=== PATIENT | male | born 1955 | race Caucasian/White ===

== ENCOUNTER 2018-02-04 13:42 | Emergency (ER) | payer SELFPAY ==
[~2018-02-04] VITALS: Ht 193 cm; Wt 99.4 kg
[~2018-02-04 13:42] MED LIST: CYCL-36 PO; LISI-363 PO; NOVONP2 SQ; PERC10TA27 PO; Z.0.NO CURRENT MEDS; ZOLP10TA3 PO
[2018-02-04 13:44] VITALS: BP 163/90; PULSE 113; RESP 18; TEMP 98.6; O2SAT 99
[2018-02-04] MEDS ORDERED: SODIUM CHLORID 0.9% 500 ML INJ 500 ML IV ONE (14:00)
--- NOTE | 2018-02-04 14:11 | PD ---
HPI Chief Complaint: Complaint Time Seen by Provider: 13:51 Travel History International Travel<30 days: No Contact w/Intl Traveler<30days: No Traveled to known affect area: No History of Present Illness HPI Patient is a 62 year old male who comes in with multiple medical complaints. He says he has pain and swelling to his right foot/ankle for the past week and this is his main concern. 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 He says it has been more painful and swollen. He also says he has numbness of his right lower leg, from the knee down, for the past year, with a nonhealing wound to his left first toe. He says the wound is improving as he has been doing his own wound care. He is also concerned that he may have a UTI. He says his urine has been "cloudy." He says he thinks he had a UTI previously, but treated it himself with over the counter medications and left over antibiotics. He says he had chills yesterday and he had a temperature of 100. He took some Tylenol a few hours ago. Severity is mild to moderate. PFSH Past Medical History Cancer: No Cardiovascular Problems: No Diabetes: Yes Patient Takes Glucophage: No Diminished Hearing: No Endocrine: No Genitourinary: No Hypertension: Yes Musculoskeletal: No Neurologic: Yes Psychiatric: No Respiratory: No Tetanus Vaccination: Unknown Influenza Vaccination: No ?: Not Past Surgical History Other Surgery: Yes Social History Alcohol Use: No Tobacco Use: Yes (1/2 ppd) Substance Use: No Allergies-Medications (Allergen,Severity, Reaction): Coded Allergies: No Known Allergies (Unverified Allergy, Unknown, 02/04/18) Reported Meds & Prescriptions Reported Meds & Active Scripts Active Reported Lisinopril 20 Mg Tab 20 Mg PO DAILY Novolin N (Insulin Human NPH) 100 Units/Ml Inj 10 Units SQ BID Flexeril (Cyclobenzaprine HCl) 10 Mg Tab 10 Mg PO TIDPRN Ambien 10 Mg Tab (Zolpidem Tartrate) 10 Mg Tab 10 Mg PO HS Percocet 10/325 (Oxycodone/Acetaminophen) Tab 1 Tab PO Q4HPRN No Current Meds (Miscellaneous Medication) Misc Review of Systems Except as stated in HPI: all other systems reviewed are Neg General / Constitutional: Positive: Chills HENT: No: Headaches, Lightheadedness Cardiovascular: No: Chest Pain or Discomfort Respiratory: No: Shortness of Breath Gastrointestinal: No: Abdominal Pain Genitourinary: Positive: Dysuria, No: Flank Pain Musculoskeletal: Positive: Edema, Pain Neurologic: No: Weakness, Dizziness, Syncope Physical Exam Narrative GENERAL: Awake and alert, in no acute distress. SKIN: Focused skin assessment warm/dry. Erythema and warmth to the dorsal surface of the right foot, no wound. Wound to left first toe, no signs of infection. HEAD: Atraumatic. Normocephalic. EYES: Pupils equal and round. No scleral icterus. ENT: Mucous membranes pink and moist. NECK: Trachea midline. No JVD. CARDIOVASCULAR: Regular rate and rhythm. No murmur appreciated. RESPIRATORY: No accessory muscle use. Clear to auscultation. Breath sounds equal bilaterally. GASTROINTESTINAL: Abdomen soft, non-tender, nondistended. No CVA tenderness. MUSCULOSKELETAL: No obvious deformities. No clubbing. No cyanosis. No edema. NEUROLOGICAL: Awake and alert. No obvious cranial nerve deficits. Motor grossly within normal limits. Normal speech. PSYCHIATRIC: Appropriate mood and affect; insight and judgment normal. Data Data Last Documented VS Vital Signs Date Time Temp Pulse Resp B/P (MAP) Pulse Ox O2 Delivery O2 Flow Rate FiO2 02/04/18 13:44 98.6 113 18 163/90 (114) 99 Orders Orders Urinalysis - C+S If Indicated (02/04/18 13:47) Complete Blood Count With Diff (02/04/18 13:59) Comprehensive Metabolic Panel (02/04/18 13:59) Iv Access Insert/Monitor (02/04/18 13:59) Sodium Chlorid 0.9% 500 Ml Inj (Ns 500 M (02/04/18 14:00) Foot, Complete ([id number]) (02/04/18 ) Ankle, Complete ([id number]) (02/04/18 ) Clindamycin 600 Mg/Ns Premix (Cleocin 60 (02/04/18 14:30) Labs Laboratory Tests Test 02/04/18 14:24 White Blood Count 13.9 TH/MM3 Red Blood Count 4.55 MIL/MM3 Hemoglobin 13.0 GM/DL Hematocrit 39.1 % Mean Corpuscular Volume 85.9 FL Mean Corpuscular Hemoglobin 28.5 PG Mean Corpuscular Hemoglobin Concent 33.2 % Red Cell Distribution Width 13.3 % Platelet Count 484 TH/MM3 Mean Platelet Volume 8.2 FL Neutrophils (%) (Auto) 74.8 % Lymphocytes (%) (Auto) 17.4 % Monocytes (%) (Auto) 6.1 % Eosinophils (%) (Auto) 0.6 % Basophils (%) (Auto) 1.1 % Neutrophils # (Auto) 10.4 TH/MM3 Lymphocytes # (Auto) 2.4 TH/MM3 Monocytes # (Auto) 0.8 TH/MM3 Eosinophils # (Auto) 0.1 TH/MM3 Basophils # (Auto) 0.2 TH/MM3 CBC Comment DIFF FINAL Differential Comment Blood Urea Nitrogen 7 MG/DL Random Glucose 273 MG/DL Albumin 2.9 GM/DL Calcium Level 9.1 MG/DL Sodium Level 133 MEQ/L Potassium Level 3.7 MEQ/L Chloride Level 96 MEQ/L Carbon Dioxide Level 26.0 MEQ/L Anion Gap 11 MEQ/L [facility] Medical Decision Making Medical Screen Exam Complete: Yes Emergency Medical Condition: Yes Medical Record Reviewed: Yes Differential Diagnosis UTI vs cellulitis vs abscess vs uncontrolled diabetes Narrative Course Patient is a 62 year old male who comes in with multiple complaints. Exam shows swelling and redness to the right foot. IV established, labs sent. Given pain medicine and Clindamycin. XR of the foot and ankle shows degenerative changes, no fracture. Last 24 hours Impressions Foot X-Ray 02/04/18 Signed Impressions: Service Date/Time: Sunday, February 04, 2018 14:02 - CONCLUSION: 1. Right foot soft tissue swelling most severe dorsally. No fracture is identified. 2. There are degenerative changes at multiple joints but most severe at the first and second TMT joints and the first MTP joint. Bolivar Hall MD Ankle X-Ray 02/04/18 Signed Impressions: Service Date/Time: Sunday, February 04, 2018 14:02 - CONCLUSION: Diffuse ankle soft tissue swelling, most prominent laterally. There are degenerative changes present, as above, but no fracture or acute abnormality is seen. Bolivar Hall MD Patient signed out to oncoming provider to follow up testing and disposition the patient. Corinna Patel MD February 04, 2018 14:11
[2018-02-04] MEDS ORDERED: CLINDAMYCIN 600 MG/NS PREMIX 50 ML IV ONE (14:30)
--- NOTE | 2018-02-04 14:37 | RADRPT ---
EXAM DATE/TIME: 02/04/2018 14:02 [facility] COMPARISON: No previous studies available for comparison. INDICATIONS : Right foot pain and redness, no known injury. MEDICAL HISTORY : Diabetes mellitus type II. SURGICAL HISTORY : rt ankle surgery ENCOUNTER: Initial ACUITY: 1 week PAIN SCORE: 3/10 LOCATION: Right foot FINDINGS: 3 views of the right foot demonstrate no fracture or dislocation. The Lisfranc joint appears intact. There is joint space narrowing with osteophytes at the first metatarsophalangeal joint. Hypertrophic osteophytes are present at the first and second tarsometatarsal joints. At the second and third digit distal interphalangeal joints there is joint space narrowing and osteophytes. There is soft tissue s welling diffusely of the foot, most prominent laterally and dorsally. No radiopaque foreign body is s een. CONCLUSION: 1. Right foot soft tissue swelling most severe dorsally. No fracture is identified. 2. There are degenerative changes at multiple joints but most severe at the first and second TMT join ts and the first MTP joint. Bolivar Hall MD on February 04, 2018 at 14:32 Board Certified Radiologist. This report was verified electronically.
--- NOTE | 2018-02-04 14:38 | RADRPT ---
EXAM DATE/TIME: 02/04/2018 14:02 [facility] COMPARISON: FOOT RIGHT COMPLETE ([id number]), February 04, 2018, 14:02. INDICATIONS : Right lateral ankle pain, swelling and redness, no known injury. MEDICAL HISTORY : Diabetes mellitus type II. SURGICAL HISTORY : rt ankle surgery ENCOUNTER: Initial ACUITY: 1 week PAIN SCORE: 3/10 LOCATION: Right lateral ankle FINDINGS: 3 views of the right ankle demonstrate no fracture or dislocation. Ankle mortise appears intact. Ther e is ankle soft tissue swelling, most severe laterally. There are degenerative changes in the mid valeri t and at the tibiotalar joint. No radiopaque foreign body is identified. CONCLUSION: Diffuse ankle soft tissue swelling, most prominent laterally. There are degenerative changes present, as above, but no fracture or acute abnormality is seen. Bolivar Hall MD on February 04, 2018 at 14:35 Board Certified Radiologist. This report was verified electronically.
[2018-02-04 14:39] LABS: AUTOMATED NEUTROPHIL # 10.4 TH/MM3 (1.8-7.7); BASOPHIL # 0.2 TH/MM3 (0-0.2); BASOPHIL % 1.1 % (0.0-2.0); EOSINOPHIL # 0.1 TH/MM3 (0-0.4); EOSINOPHIL % 0.6 % (0.0-4.0); HEMATOCRIT 39.1 % (39.0-51.0); LYMPH % 17.4 % (9.0-44.0); LYMPHOCYTE # 2.4 TH/MM3 (1.0-4.8); MEAN CELL VOLUME 85.9 FL (80.0-100.0); MEAN CORPUSCULAR HEMOGLOBIN 28.5 PG (27.0-34.0); MEAN CORPUSCULAR HGB CONC 33.2 % (32.0-36.0); MEAN PLATELET VOLUME 8.2 FL (7.0-11.0); MONO % 6.1 % (0.0-8.0); MONOCYTE # 0.8 TH/MM3 (0-0.9); NEUT % 74.8 % (16.0-70.0); PLATELET COUNT 484 TH/MM3 (150-450); RED BLOOD COUNT 4.55 MIL/MM3 (4.50-5.90); RED CELL DISTRIBUTION WIDTH 13.3 % (11.6-17.2); WHITE BLOOD COUNT 13.9 TH/MM3 (4.0-11.0)
[2018-02-04 14:47] LABS: CHLORIDE 96 MEQ/L (98-107); SODIUM (NA) 133 MEQ/L (136-145)
[2018-02-04 14:50] LABS: CALCIUM 9.1 MG/DL (8.5-10.1)
[2018-02-04 14:51] LABS: ALBUMIN 2.9 GM/DL (3.4-5.0); BLOOD UREA NITROGEN 7 MG/DL (7-18); GLUCOSE,RANDOM 273 MG/DL (74-106)
[2018-02-04 14:54] LABS: ALT (GPT) 14 U/L (12-78); AST (GOT) 12 U/L (15-37); CREATININE 0.59 MG/DL (0.60-1.30); GLOMERULAR FILTRATION RATE 139 ML/MIN (>89)
[2018-02-04 14:56] LABS: TOTAL BILIRUBIN ADULT 0.6 MG/DL (0.2-1.0); TOTAL PROTEIN 7.2 GM/DL (6.4-8.2)
[2018-02-04 14:57] LABS: ALKALINE PHOSPHATASE 86 U/L (45-117)
[2018-02-04] MEDS ORDERED: KETOROLAC TROMETHAMINE 30 MG/ML (IVP) VIAL IV PUSH ONE (15:00)
[2018-02-04 15:30] LABS: BILIRUBIN, URINE NEG (NEG); BLOOD, URINE SMALL (NEG); GLUCOSE,URINE 500 mg/dL (NEG); KETONE, URINE 80 OR GREATER mg/dL (NEG); NITRITE,URINE NEG (NEG); URINE COLOR YELLOW (YELLW/STRAW); URINE LEUKOCYTE ESTERASE MOD (NEG)
[2018-02-04 15:42] LABS: BACTERIA, URINE OCC /hpf; RBC, URINE 0-3 /hpf (0-3); SQUAMOUS EPITHELIAL CELL URINE 0-5 /hpf (0-5); WBC, URINE 100-200 /hpf (0-5); WHITE BLOOD CELL CLUMPS FEW
[2018-02-04 15:56] VITALS: BP 183/99; PULSE 91; RESP 16; O2SAT 98
--- NOTE | 2018-02-04 15:56 | PD ---
Physical Exam Date Seen by Provider: February 04, 2018 Time Seen by Provider: 15:50 Narrative 62-year-old male came to the emergency room with history of right foot swelling , redness and pain. Patient is a diabetic on medications and controlling on his own with diet. Patient was seen by the previous ER physician. Please refer to her history and physical for further details. Case was signed out to me to follow-up on the UA. When patient came in he was tachycardic in triage but afebrile. Blood test results are suggestive of leukocytosis without leftward shift. Electrolytes were suggestive of hyperglycemia without increased anion gap. There was an x-ray of the right foot and ankle done which the patient was complaining of pain and swelling. The x-ray suggestive of significant DJD but no acute fracture. I went and saw the patient and explained to him about the test results. I was in the room talking to the patient for 15 minutes explained to him about the fact that his sugar is not well controlled at this point. He should have a primary care physician who can control with medication and keep an eye on the blood sugar and hemoglobin A1c etc. Also the patient needs a marine erector to follow-up on both feet since the left foot which he is not really complaining about has a large ulcer on the plantar aspect of the greater toe which as per the patient is actually getting better with his own care. Patient was more concerned about his right foot and the pain and swelling and was sure he had a fracture given the amount of pain he was in especially when he is walking. He said that he does not need crutches and has been nursing it well. I found the patient to be wanting to be in control of his own health. He says he has been doing a lot of research on his foot disease. Which sounds good however the fact is that his care is not adequate to keep his feet healthy. I noticed that his left middle toe plantar aspect had started to turn ecchymotic with a possibility of the beginning of a diabetic ulcer. His right foot also in general did not appear to be extremely healthy either. He had poor toenail care with lot of ingrown toenails. He does require medications, primary care doctor and a marine erector and I tried to emphasize this on the patient. However due to the lack of insight I am not sure how much of the recommendation the patient is going to follow. I will send him home on antibiotic for his foot which should cover for cellulitis as well as UTI. His tenderness on the foot is mostly on the lateral aspect of the foot and there is a point tenderness. Given the redness and the tenderness there and I would like to go ahead and get a CAT scan of the foot to rule out any subtle fracture. I have ordered Bactrim in addition to the IV clindamycin that he had received from the previous physician. If the CT is fine patient will be discharged home. Data Data Last Documented VS Vital Signs Date Time Temp Pulse Resp B/P (MAP) Pulse Ox O2 Delivery O2 Flow Rate FiO2 02/04/18 17:28 02/04/18 15:56 91 16 98 Room Air 02/04/18 13:44 98.6 Orders Orders Urinalysis - C+S If Indicated (02/04/18 13:47) Complete Blood Count With Diff (02/04/18 13:59) Comprehensive Metabolic Panel (02/04/18 13:59) Iv Access Insert/Monitor (02/04/18 13:59) Sodium Chlorid 0.9% 500 Ml Inj (Ns 500 M (02/04/18 14:00) Foot, Complete ([id number]) (02/04/18 ) Ankle, Complete ([id number]) (02/04/18 ) Clindamycin 600 Mg/Ns Premix (Cleocin 60 (02/04/18 14:30) Ketorolac Inj (Toradol Inj) (02/04/18 15:00) Urine Culture (02/04/18 15:15) Sulfamet-Trimeth Ds 800-160 Mg (Bactrim (02/04/18 16:00) Ct Foot W/O Contrast (02/04/18 ) Ed Discharge Order (02/04/18 17:10) Labs Laboratory Tests Test 02/04/18 14:24 02/04/18 15:15 White Blood Count 13.9 TH/MM3 Red Blood Count 4.55 MIL/MM3 Hemoglobin 13.0 GM/DL Hematocrit 39.1 % Mean Corpuscular Volume 85.9 FL Mean Corpuscular Hemoglobin 28.5 PG Mean Corpuscular Hemoglobin Concent 33.2 % Red Cell Distribution Width 13.3 % Platelet Count 484 TH/MM3 Mean Platelet Volume 8.2 FL Neutrophils (%) (Auto) 74.8 % Lymphocytes (%) (Auto) 17.4 % Monocytes (%) (Auto) 6.1 % Eosinophils (%) (Auto) 0.6 % Basophils (%) (Auto) 1.1 % Neutrophils # (Auto) 10.4 TH/MM3 Lymphocytes # (Auto) 2.4 TH/MM3 Monocytes # (Auto) 0.8 TH/MM3 Eosinophils # (Auto) 0.1 TH/MM3 Basophils # (Auto) 0.2 TH/MM3 CBC Comment DIFF FINAL Differential Comment Blood Urea Nitrogen 7 MG/DL Creatinine 0.59 MG/DL Random Glucose 273 MG/DL Total Protein 7.2 GM/DL Albumin 2.9 GM/DL Calcium Level 9.1 MG/DL Alkaline Phosphatase 86 U/L Aspartate Amino Transf (AST/SGOT) 12 U/L Alanine Aminotransferase (ALT/SGPT) 14 U/L Total Bilirubin 0.6 MG/DL Sodium Level 133 MEQ/L Potassium Level 3.7 MEQ/L Chloride Level 96 MEQ/L Carbon Dioxide Level 26.0 MEQ/L Anion Gap 11 MEQ/L Estimat Glomerular Filtration Rate 139 ML/MIN Urine Color YELLOW Urine Turbidity CLEAR Urine pH 6.0 Urine Specific [place] 1.010 Urine Protein 100 mg/dL Urine Glucose (UA) 500 mg/dL Urine Ketones 80 OR GREATER mg/dL Urine Occult Blood SMALL Urine Nitrite NEG Urine Bilirubin NEG Urine Urobilinogen 0.2 MG/DL Urine Leukocyte Esterase MOD Urine RBC 0-3 /hpf Urine WBC 100-200 /hpf Urine WBC Clumps FEW Urine Squamous Epithelial Cells 0-5 /hpf Urine Bacteria OCC /hpf Microscopic Urinalysis Comment CULTURE INDICATED MDM Supervised Visit with JARRED: No Diagnosis Primary Impression: Diabetic foot ulcer Qualified Codes: E11.621 - Type 2 diabetes mellitus with foot ulcer; L97.522 - Non-pressure chronic ulcer of other part of left foot with fat layer exposed Additional Impressions: Charcot's joint of right foot UTI (urinary tract infection) Qualified Codes: N39.0 - Urinary tract infection, site not specified Hyperglycemia Referrals: Corinna Blake DPJasen 3 days Additional Instruction: Please follow-up with the marine erector was name and number been given to you. Call the office tomorrow to make an appointment. Take the medication as per the prescription direction. Return to the ER if condition worsens or any other new concerns. Med/Other Pt SpecificInfo: Prescription(s) given Scripts Sulfamethoxazole-Trimethoprim (Bactrim DS) 800-160 Mg Tab 1 TAB PO BID for Infection, #20 TAB 0 Refills Prov: Cindi Mccoy MD 02/04/18 Metformin (Glucophage) 500 Mg Tab 500 MG PO BIDPC for Blood Sugar Management, #60 TAB 0 Refills Prov: Cindi Mccoy MD 02/04/18 Disposition: 01 DISCHARGE HOME Condition: Stable Cindi Mccoy MD February 04, 2018 15:56
[2018-02-04] MEDS ORDERED: SULFAMETHOXAZOLE-TRIMETHOPRIM DS 800-160 MG TAB PO ONE (16:00)
--- NOTE | 2018-02-04 17:00 | RADRPT ---
EXAM DATE/TIME: 02/04/2018 16:20 [facility] COMPARISON: FOOT RIGHT COMPLETE ([id number]), February 04, 2018, 14:02. INDICATIONS : Right foot pain. No injury. RADIATION DOSE: 6.26 CTDIvol (mGy) MEDICAL HISTORY : Hypertension. Diabetes. SURGICAL HISTORY : Bilateral ankle surgery. ENCOUNTER: Initial ACUITY: 1 week PAIN SCALE: 7/10 LOCATION: Right foot TECHNIQUE: Volumetric scanning of the foot was performed. Using automated exposure control and adjustment of th e mA and/or kV according to patient size, radiation dose was kept as low as reasonably achievable to obtain optimal diagnostic quality images. DICOM format image data is available electronically for re view and comparison. FINDINGS: There is evidence of mild to moderate Charcot arthropathy in the tarsal/metatarsal row and 1st throug h 5th digits. There is mild arthropathy involving the intertarsal row. No significant dislocation o r malalignment. In the soft tissues near the plantar aspect of the distal 2nd metatarsus, there is a 2 mm rounded metallic density possibly representing foreign body. There is soft tissue swelling abo ut this opacity. There is mild dorsal soft tissue swelling about the midfoot most the interphalangea l joints are grossly intact in the metatarsal pharyngeal joints are intact. Mild degenerative change s in 1st MTP joint. CONCLUSION: Moderate severity Charcot arthropathy in the tarsal/metatarsal row. Possible punctate metallic forei gn body in the soft tissues of the plantar 2nd metatarsal region. Woo Hylton MD on February 04, 2018 at 16:49 Board Certified Radiologist. This report was verified electronically.
[2018-02-04] MEDS ORDERED: BACT800T5 PO ×2 (17:13→17:17)
[2018-02-04] MEDS ORDERED: METF500 PO ×2 (17:13→17:17)
== END 2018-02-04 17:38 | disposition home or self-care (01) ==
LOC: PHED 13:42
DX: E11.621 Type 2 diabetes mellitus with foot ulcer (principal); L97.522 Non-pressure chronic ulcer of other part of left foot with fat layer exposed; E11.610 Type 2 diabetes mellitus with diabetic neuropathic arthropathy; E11.65 Type 2 diabetes mellitus with hyperglycemia; N39.0 Urinary tract infection, site not specified; A49.01 Methicillin susceptible Staphylococcus aureus infection, unspecified site; I10 Essential (primary) hypertension; F17.200 Nicotine dependence, unspecified, uncomplicated; Z79.4 Long term (current) use of insulin
CPT/HCPCS: 73610; 73630; 73700; 80053; 81001; 85025; 86403; 87086; 87186; 96365; 96375; 99284; J1885; J7040

== ENCOUNTER 2018-02-26 14:34 | Inpatient (IN) | payer SELFPAY ==
[~2018-02-26] VITALS: Ht 193 cm; Wt 97.4 kg
[2018-02-26] VITALS (8 sets, daily range): BP systolic 128–214; BP diastolic 72–111; PULSE 85–95; RESP 16; TEMP 98.4–98.8; O2SAT 99–100
[~2018-02-26 14:34] MED LIST changes: +BACT800T5 PO; +METF500 PO; +cloNIDine HCL 0.1 MG TAB PO PRN
--- NOTE | 2018-02-26 15:36 | PD ---
HPI Chief Complaint: Skin Problem Time Seen by Provider: 15:16 Travel History International Travel<30 days: No Contact w/Intl Traveler<30days: No Traveled to known affect area: No History of Present Illness HPI 62-year-old male with history of diabetes here for evaluation of persistent redness, pain, slight swelling to the right foot as well as cloudy urine and dysuria. Patient was seen in the emergency department on 02/04/18 and was prescribed Bactrim for his right foot cellulitis. He was also started on metformin at that time, however he states that he has not taken this medication for the last week. He states that initially the redness seemed to have improved , however it is no longer getting better. Pain is moderate, constant, worse with palpation. Patient also reports that for the last 4 days he has noted dysuria and occasionally has gross hematuria. No abdominal pain. No vomiting or diarrhea. No fevers or chills. PFSH Past Medical History Cancer: No Cardiovascular Problems: No Diabetes: Yes Diminished Hearing: No Endocrine: No Genitourinary: No Hypertension: Yes Musculoskeletal: No Neurologic: Yes Psychiatric: No Respiratory: No Past Surgical History Other Surgery: Yes Social History Alcohol Use: No Tobacco Use: Yes (/2 ppd) Substance Use: No Allergies-Medications (Allergen,Severity, Reaction): Coded Allergies: No Known Allergies (Unverified Allergy, Unknown, 02/26/18) Reported Meds & Prescriptions Reported Meds & Active Scripts Active Review of Systems Except as stated in HPI: all other systems reviewed are Neg Physical Exam Narrative GENERAL: Well-developed, well-nourished, awake and alert, no apparent distress. SKIN: Dorsum of right foot with diffuse erythema and mild edema with mild tenderness, no crepitus, no fluctuance or induration. There is a small superficial ulceration at the base of the right great toe on the plantar aspect of the foot without surrounding warmth erythema, no purulent drainage. Plantar aspect of left great toe there is an ulceration that the patient states has been there for quite some time, no drainage, no surrounding warmth erythema. HEAD: Atraumatic. Normocephalic. EYES: Pupils equal and round. No scleral icterus. No injection or drainage. ENT: Mucous membranes pink and moist. NECK: Trachea midline. No JVD. CARDIOVASCULAR: Regular rate and rhythm. Bilateral dorsalis pedis pulses are brisk and equal. RESPIRATORY: No accessory muscle use. Clear to auscultation. Breath sounds equal bilaterally. GASTROINTESTINAL: Abdomen soft, non-tender, nondistended. MUSCULOSKELETAL: Skin exam as above. NEUROLOGICAL: Awake and alert. No obvious cranial nerve deficits. Motor grossly within normal limits. Normal speech. PSYCHIATRIC: Appropriate mood and affect; insight and judgment normal. Data Data Last Documented VS Vital Signs Date Time Temp Pulse Resp B/P (MAP) Pulse Ox O2 Delivery O2 Flow Rate FiO2 02/26/18 14:46 98.8 95 16 170/94 (119) 99 Orders Orders Complete Blood Count With Diff (02/26/18 15:31) Comprehensive Metabolic Panel (02/26/18 15:31) Urinalysis - C+S If Indicated (02/26/18 15:31) Iv Access Insert/Monitor (02/26/18 15:31) Ecg Monitoring (02/26/18 15:31) Oximetry (02/26/18 15:31) Sodium Chloride 0.9% Flush (Ns Flush) (02/26/18 15:45) Foot, Complete ([id number]) (02/26/18 ) Westergren Sedimentation Rate (02/26/18 15:31) C-Reactive Protein (Crp) (02/26/18 15:31) Urine Culture (02/26/18 15:42) Blood Culture (02/26/18 16:46) Vancomycin Inj (Vancomycin Inj) (02/26/18 17:00) Piperacil-Tazo 4.5 Gm Premix (Zosyn 4.5 (02/26/18 17:00) Sodium Chlor 0.9% 1000 Ml Inj (Ns 1000 M (02/26/18 17:00) Insulin Human Regular Inj (Novolin R Inj (02/26/18 17:00) Labs Laboratory Tests Test 02/26/18 15:42 02/26/18 16:03 Urine Collection Type CLEAN CATCH Urine Color YELLOW Urine Turbidity CLOUDY Urine pH 6.0 Urine Specific [place] 1.020 Urine Protein 100 mg/dL Urine Glucose (UA) 500 mg/dL Urine Ketones NEG mg/dL Urine Occult Blood TRACE Urine Nitrite NEG Urine Bilirubin NEG Urine Urobilinogen 0.2 MG/DL Urine Leukocyte Esterase LARGE Urine RBC 20-24 /hpf Urine WBC 100-200 /hpf Urine WBC Clumps MANY Urine Squamous Epithelial Cells 0-5 /hpf Urine Bacteria FEW /hpf Microscopic Urinalysis Comment CULTURE INDICATED Urine Collection Time 15:42 White Blood Count 12.7 TH/MM3 Red Blood Count 4.52 MIL/MM3 Hemoglobin 12.6 GM/DL Hematocrit 37.3 % Mean Corpuscular Volume 82.6 FL Mean Corpuscular Hemoglobin 27.8 PG Mean Corpuscular Hemoglobin Concent 33.7 % Red Cell Distribution Width 13.6 % Platelet Count 597 TH/MM3 Mean Platelet Volume 8.4 FL Neutrophils (%) (Auto) 66.1 % Lymphocytes (%) (Auto) 26.9 % Monocytes (%) (Auto) 5.0 % Eosinophils (%) (Auto) 1.2 % Basophils (%) (Auto) 0.8 % Neutrophils # (Auto) 8.4 TH/MM3 Lymphocytes # (Auto) 3.4 TH/MM3 Monocytes # (Auto) 0.6 TH/MM3 Eosinophils # (Auto) 0.2 TH/MM3 Basophils # (Auto) 0.1 TH/MM3 CBC Comment DIFF FINAL Differential Comment Erythrocyte Sedimentation Rate 63 mm/hr Blood Urea Nitrogen 9 MG/DL Creatinine 0.72 MG/DL Random Glucose 283 MG/DL Total Protein 7.8 GM/DL Albumin 3.4 GM/DL Calcium Level 9.4 MG/DL Alkaline Phosphatase 92 U/L Aspartate Amino Transf (AST/SGOT) 13 U/L Alanine Aminotransferase (ALT/SGPT) 19 U/L Total Bilirubin 0.4 MG/DL Sodium Level 131 MEQ/L Potassium Level 4.0 MEQ/L Chloride Level 95 MEQ/L Carbon Dioxide Level 28.7 MEQ/L Anion Gap 7 MEQ/L Estimat Glomerular Filtration Rate 111 ML/MIN C-Reactive Protein 2.55 MG/DL [facility] Medical Decision Making Medical Screen Exam Complete: Yes Emergency Medical Condition: Yes Medical Record Reviewed: Yes Differential Diagnosis Cellulitis, osteomyelitis, diabetic foot infection, UTI, cystitis Narrative Course Initial vital signs show heart rate 95, blood pressure 170/94, pulse ox 99% on room air, oral temperature 98.8F. CBC: WBC 12.7, hemoglobin 12.6, hematocrit 37.3, platelets 597. CMP is remarkable for sodium 131, chloride 95, random glucose 283. CRP is 2.55. ESR 63. UA is suggestive of UTI. Right foot x-ray: CONCLUSION: 1. Findings concerning for osteomyelitis involving the base of the fourth and fifth metatarsals as well as the cuboid, in the appropriate clinical setting. Differential considerations include neuropathic osteoarthropathy. 4:50 PM: Patient was made aware of all findings. I strongly advised that he be admitted for IV antibiotics. The patient tells me that he cannot be admitted. I had a long discussion with him telling him that if he does not receive the appropriate IV antibiotics, that his osteomyelitis will worsen and he went up with an amputation of the right foot/leg. He tells me that he would like time to think about being admitted, stating that he prefers to be discharged home with oral antibiotics. 5:34 PM: When talking with the patient and he has decided that he will stay in the hospital for IV antibiotic therapy for right foot osteomyelitis. He was written for a dose of 1g IV Vancomycin and 4.5g IV Zosyn. Case discussed with hospitalist Dr. Miranda who will admit the patient to her service. Diagnosis Primary Impression: Foot osteomyelitis, right Qualified Codes: M86.9 - Osteomyelitis, unspecified Additional Impressions: Cellulitis of right foot Hyperglycemia Diabetic ulcer of left great toe UTI (urinary tract infection) Qualified Codes: N39.0 - Urinary tract infection, site not specified; R31.9 - Hematuria, unspecified Admitting Information Admitting Physician Requests: Admit Benjamin Burdick MD February 26, 2018 15:36
[2018-02-26] MEDS ORDERED: SODIUM CHLORIDE 0.9% FLUSH 10 ML FLUSH IV FLUSH PRN ×2 (15:45→18:30)
[2018-02-26 15:51] LABS: BILIRUBIN, URINE NEG (NEG); BLOOD, URINE TRACE (NEG); GLUCOSE,URINE 500 mg/dL (NEG); KETONE, URINE NEG (NEG); NITRITE,URINE NEG (NEG); URINE COLOR YELLOW (YELLW/STRAW); URINE LEUKOCYTE ESTERASE LARGE (NEG)
[2018-02-26 15:59] LABS: WBC, URINE 100-200 /hpf (0-5); WHITE BLOOD CELL CLUMPS MANY
[2018-02-26 16:00] LABS: BACTERIA, URINE FEW /hpf; SQUAMOUS EPITHELIAL CELL URINE 0-5 /hpf (0-5)
[2018-02-26 16:10] LABS: AUTOMATED NEUTROPHIL # 8.4 TH/MM3 (1.8-7.7); BASOPHIL # 0.1 TH/MM3 (0-0.2); BASOPHIL % 0.8 % (0.0-2.0); EOSINOPHIL # 0.2 TH/MM3 (0-0.4); EOSINOPHIL % 1.2 % (0.0-4.0); HEMATOCRIT 37.3 % (39.0-51.0); HEMOGLOBIN 12.6 GM/DL (13.0-17.0); LYMPH % 26.9 % (9.0-44.0); LYMPHOCYTE # 3.4 TH/MM3 (1.0-4.8); MEAN CELL VOLUME 82.6 FL (80.0-100.0); MEAN CORPUSCULAR HEMOGLOBIN 27.8 PG (27.0-34.0); MEAN CORPUSCULAR HGB CONC 33.7 % (32.0-36.0); MEAN PLATELET VOLUME 8.4 FL (7.0-11.0); MONOCYTE # 0.6 TH/MM3 (0-0.9); NEUT % 66.1 % (16.0-70.0); PLATELET COUNT 597 TH/MM3 (150-450); RED BLOOD COUNT 4.52 MIL/MM3 (4.50-5.90); RED CELL DISTRIBUTION WIDTH 13.6 % (11.6-17.2); WHITE BLOOD COUNT 12.7 TH/MM3 (4.0-11.0)
[2018-02-26 16:16] LABS: CHLORIDE 95 MEQ/L (98-107); SODIUM (NA) 131 MEQ/L (136-145)
[2018-02-26 16:20] LABS: ALBUMIN 3.4 GM/DL (3.4-5.0); BICARBONATE 28.7 MEQ/L (21.0-32.0); BLOOD UREA NITROGEN 9 MG/DL (7-18); CALCIUM 9.4 MG/DL (8.5-10.1); GLUCOSE,RANDOM 283 MG/DL (74-106)
--- NOTE | 2018-02-26 16:20 | RADRPT ---
EXAM DATE: 02/26/2018 4:06 PM EDT AGE/SEX: 62 years / Male INDICATIONS: Right foot pain, redness with no known injury CLINICAL DATA: This is the patient's initial encounter. Patient reports that signs and symptoms have been present for 1 month and indicates a pain score of 7/10. MEDICAL/SURGICAL HISTORY: Diabetes mellitus type II. . Right ankle surgery COMPARISON: [facility], FOOT RIGHT COMPLETE ([id number]), 02/04/2018. . FINDINGS: Prominent bony destruction and fragmentation involving the medial base of the fifth metatarsal as wel l as the cuboid and lateral base of the fourth metatarsal. Redemonstration of degenerative changes mo st prominently involving the first and second metatarsal cuneiform as well as the first metatarsophal angeal joints. Mild diffuse soft tissue prominence overlying the midfoot region. No radiopaque foreig n bodies. CONCLUSION: 1. Findings concerning for osteomyelitis involving the base of the fourth and fifth metatarsals as w ell as the cuboid, in the appropriate clinical setting. Differential considerations include neuropath ic osteoarthropathy. Electronically signed by: Torres Aleman MD 02/26/2018 4:19 PM EDT
[2018-02-26 16:23] LABS: ALT (GPT) 19 U/L (12-78); AST (GOT) 13 U/L (15-37); CREATININE 0.72 MG/DL (0.60-1.30); GLOMERULAR FILTRATION RATE 111 ML/MIN (>89)
[2018-02-26 16:25] LABS: TOTAL BILIRUBIN ADULT 0.4 MG/DL (0.2-1.0); TOTAL PROTEIN 7.8 GM/DL (6.4-8.2)
[2018-02-26 16:26] LABS: ALKALINE PHOSPHATASE 92 U/L (45-117)
[2018-02-26 16:31] LABS: C-REACTIVE PROTEIN 2.55 MG/DL (0.00-0.30)
[2018-02-26] MEDS ORDERED: INSULIN HUMAN REGULAR 1,000 UNITS/10 ML VIAL IV PUSH ONE (17:00)
[2018-02-26] MEDS ORDERED: VANCOMYCIN INJ 1,000 MG in SODIUM CHLOR 0.9% 250 ML INJ 250 ML IV ONE (17:00)
[2018-02-26] MEDS ORDERED: SODIUM CHLOR 0.9% 1000 ML INJ 1,000 ML IV ONE (17:00)
[2018-02-26] MEDS ORDERED: PIPERACIL-TAZO 4.5 GM PREMIX 100 ML IV ONE (17:00)
[2018-02-26] MEDS ORDERED: Vancomycin Consult Pharmacy 1 EA OTHER SCH (18:30)
[2018-02-26] MEDS ORDERED: NALOXONE HCL 0.4 MG/ML AMP IV PUSH PRN (18:30)
[2018-02-26] MEDS ORDERED: GLUCAGON 1 MG/ML VIAL OTHER PRN (18:30)
[2018-02-26] MEDS ORDERED: DEXTROSE 50% IN WATER 50 ML VIAL(D50) IV PUSH PRN (18:30)
[2018-02-26] MEDS ORDERED: VANCOMYCIN INJ 1,000 MG in SODIUM CHLOR 0.9% 250 ML INJ 250 ML IV SCH (18:30)
[2018-02-26] MEDS ORDERED: ACETAMINOPHEN 325 MG TAB PO PRN (20:00)
[2018-02-26] MEDS: SODIUM CHLOR 0.9% 1000 ML INJ 1,000 ML IV SCH (20:12)
[2018-02-26] MEDS ORDERED: NIFEdipine 30 MG SUSTAINED RELEASE TAB PO ONE (20:15)
[2018-02-26] MEDS ORDERED: cloNIDine HCL 0.2 MG TAB PO ONE (20:15)
[2018-02-26] MEDS ORDERED: LISINOPRIL 5 MG TAB PO ONE (20:15)
[2018-02-26] MEDS ORDERED: PROCHLORPERAZINE 25 MG SUPP RECTAL PRN (21:00)
[2018-02-26] MEDS ORDERED: SENNOSIDES 8.6 MG TAB PO PRN (21:00)
[2018-02-26] MEDS ORDERED: MAGNESIUM HYDROXIDE SUSP 30 ML CUP PO PRN (21:00)
[2018-02-26] MEDS ORDERED: VANCOMYCIN 1,000 MG/NS 250 ML IV ONE ×2 (21:00)
[2018-02-26] MEDS: traMADol HCL 50 MG TAB PO PRN (21:09)
[2018-02-26] MEDS: SODIUM CHLORIDE 0.9% FLUSH 10 ML FLUSH IV FLUSH SCH (21:10)
[2018-02-26] MEDS: INSULIN ASPART SUPPLEMENTAL SCALE SQ SCH (21:14)
[2018-02-26] MEDS: DOCUSATE SODIUM 50 MG/SENNA 8.6 MG TAB PO SCH (22:00)
[2018-02-26] MEDS: TEMAZEPAM 15 MG CAP PO PRN (23:24)
[2018-02-27 00:07] VITALS: BP 138/91; PULSE 84; RESP 20; TEMP 95.7; O2SAT 99
[2018-02-27] MEDS: SODIUM CHLOR 0.9% 1000 ML INJ 1,000 ML IV SCH (04:20)
[2018-02-27] MEDS: PIPERACIL-TAZO 4.5 GM PREMIX 100 ML IV SCH ×3 (05:00→21:50)
[2018-02-27] MEDS: VANCOMYCIN INJ 2,000 MG in SODIUM CHLORID 0.9% 500 ML INJ 500 ML IV SCH ×2 (06:03→18:02)
[2018-02-27 06:46] LABS: AUTOMATED NEUTROPHIL # 6.4 TH/MM3 (1.8-7.7); BASOPHIL # 0.1 TH/MM3 (0-0.2); BASOPHIL % 0.9 % (0.0-2.0); EOSINOPHIL # 0.2 TH/MM3 (0-0.4); HEMATOCRIT 32.5 % (39.0-51.0); HEMOGLOBIN 10.5 GM/DL (13.0-17.0); LYMPH % 27.5 % (9.0-44.0); LYMPHOCYTE # 2.8 TH/MM3 (1.0-4.8); MEAN CELL VOLUME 83.2 FL (80.0-100.0); MEAN CORPUSCULAR HEMOGLOBIN 26.9 PG (27.0-34.0); MEAN CORPUSCULAR HGB CONC 32.3 % (32.0-36.0); MEAN PLATELET VOLUME 8.6 FL (7.0-11.0); MONO % 7.2 % (0.0-8.0); MONOCYTE # 0.7 TH/MM3 (0-0.9); NEUT % 62.4 % (16.0-70.0); PLATELET COUNT 445 TH/MM3 (150-450); RED BLOOD COUNT 3.91 MIL/MM3 (4.50-5.90); RED CELL DISTRIBUTION WIDTH 13.2 % (11.6-17.2); WHITE BLOOD COUNT 10.2 TH/MM3 (4.0-11.0)
[2018-02-27 07:07] LABS: BICARBONATE 31.1 MEQ/L (21.0-32.0); CALCIUM 8.6 MG/DL (8.5-10.1); CREATININE 0.49 MG/DL (0.60-1.30)
[2018-02-27 08:29] VITALS: BP 146/80; PULSE 82; RESP 16; TEMP 96.6; O2SAT 93
[2018-02-27] MEDS: SODIUM CHLORIDE 0.9% FLUSH 10 ML FLUSH IV FLUSH SCH ×2 (09:00→19:57)
--- NOTE | 2018-02-27 09:37 | HHI.HP ---
[facility] Service [facility] Primary Care Physician No Primary Care Physician Admission Diagnosis Right foot osteomyelitis/cellulitis, UTI, hyperglycemia Diagnoses: (1) Osteomyelitis of toe of left foot (2) Diabetic ulcer of left great toe (3) Cellulitis of right foot (4) Foot osteomyelitis, right (5) Diabetes mellitus (6) UTI (urinary tract infection) Chief Complaint: Right foot pain, dysuria Travel History International Travel<30 Days: No Contact w/Intl Traveler <30 Da: No Traveled to Known Affected Are: No History of Present Illness 62-year-old man with history of diabetes type 2 and noncompliant with medical care presented to the ED for evaluation of right foot pain times several months duration, as well as redness and swelling right foot. Patient also states reports symptoms of dysuria however denies any pelvic pressure. Patient states he has not seek any medical intervention secondary to the fact that he has been taking care of his mom until passing. He has not seen any PCP. However patient was recently seen in the ED on February 04, 2018 and prescribed Bactrim for right foot cellulitis. He also endorses left great toe ulcer which he has been taken care of by himself. Denies any febrile episode Review of Systems Except as stated in HPI: all other systems reviewed are Neg Past Family Social History Past Medical History Diabetes: Yes Hypertension: Yes Past Surgical History Other Surgery: Yes Reported Medications Not currently on any medication Allergies: Coded Allergies: No Known Allergies (Unverified Allergy, Unknown, 02/26/18) Family History Dementia Social History Alcohol Use: No Tobacco Use: Yes (1/2 ppd) Substance Use: No Physical Exam Vital Signs Vital Signs Date Time Temp Pulse Resp B/P (MAP) Pulse Ox O2 Delivery O2 Flow Rate FiO2 02/27/18 08:29 96.6 82 16 146/80 (102) 93 02/27/18 00:07 95.7 84 20 138/91 (107) 99 02/26/18 22:40 80 128/75 (92) 02/26/18 21:55 92 142/72 (95) 99 Room Air 02/26/18 21:40 140/84 (102) 02/26/18 21:23 183/93 (123) 02/26/18 21:07 168/96 (120) 02/26/18 20:50 85 198/101 (133) 99 Room Air 02/26/18 19:50 98.4 87 16 192/111 (138) 100 Room Air 214/111 (145) 198/101 (133) 02/26/18 14:46 98.8 95 16 170/94 (119) 99 Physical Exam GENERAL: This is a well-nourished, well-developed patient, in no apparent distress. SKIN: No rashes, ecchymoses or lesions. Cool and dry. Erythema and redness dorsal aspect right foot. Left great toe ulcer HEAD: Atraumatic. Normocephalic. No temporal or scalp tenderness. EYES: Pupils equal round and reactive. Extraocular motions intact. No scleral icterus. No injection or drainage. ENT: Nose without bleeding, purulent drainage or septal hematoma. Throat without erythema, tonsillar hypertrophy or exudate. Uvula midline. Airway patent. NECK: Trachea midline. No JVD or lymphadenopathy. Supple, nontender, no meningeal signs. CARDIOVASCULAR: Regular rate and rhythm without murmurs, gallops, or rubs. RESPIRATORY: Clear to auscultation. Breath sounds equal bilaterally. No wheezes , rales, or rhonchi. GASTROINTESTINAL: Abdomen soft, non-tender, nondistended. No hepato-splenomegaly , or palpable masses. No guarding. MUSCULOSKELETAL: Extremities without clubbing, cyanosis, or edema. No joint tenderness, effusion, or edema noted. No calf tenderness. Negative Homans sign bilaterally. NEUROLOGICAL: Awake and alert. Cranial nerves II through XII intact. Motor and sensory grossly within normal limits. Five out of 5 muscle strength in all muscle groups. Normal speech. Laboratory Laboratory Tests Test 02/26/18 15:42 02/26/18 16:03 02/27/18 05:00 Urine Collection Type CLEAN CATCH Urine Color YELLOW Urine Turbidity CLOUDY Urine pH 6.0 Urine Specific [place] 1.020 Urine Protein 100 Urine Glucose (UA) 500 Urine Ketones NEG Urine Occult Blood TRACE Urine Nitrite NEG Urine Bilirubin NEG Urine Urobilinogen 0.2 Urine Leukocyte Esterase LARGE Urine RBC 20-24 Urine WBC 100-200 Urine WBC Clumps MANY Urine Squamous Epithelial Cells 0-5 Urine Bacteria FEW Microscopic Urinalysis Comment CULTURE INDICATED Urine Collection Time 15:42 White Blood Count 12.7 10.2 Red Blood Count 4.52 3.91 Hemoglobin 12.6 10.5 Hematocrit 37.3 32.5 Mean Corpuscular Volume 82.6 83.2 Mean Corpuscular Hemoglobin 27.8 26.9 Mean Corpuscular Hemoglobin Concent 33.7 32.3 Red Cell Distribution Width 13.6 13.2 Platelet Count 597 445 Mean Platelet Volume 8.4 8.6 Neutrophils (%) (Auto) 66.1 62.4 Lymphocytes (%) (Auto) 26.9 27.5 Monocytes (%) (Auto) 5.0 7.2 Eosinophils (%) (Auto) 1.2 2.0 Basophils (%) (Auto) 0.8 0.9 Neutrophils # (Auto) 8.4 6.4 Lymphocytes # (Auto) 3.4 2.8 Monocytes # (Auto) 0.6 0.7 Eosinophils # (Auto) 0.2 0.2 Basophils # (Auto) 0.1 0.1 CBC Comment DIFF FINAL DIFF FINAL Differential Comment Erythrocyte Sedimentation Rate 63 Blood Urea Nitrogen 9 9 Creatinine 0.72 0.49 Random Glucose 283 241 Total Protein 7.8 Albumin 3.4 Calcium Level 9.4 8.6 Alkaline Phosphatase 92 Aspartate Amino Transf (AST/SGOT) 13 Alanine Aminotransferase (ALT/SGPT) 19 Total Bilirubin 0.4 Sodium Level 131 136 Potassium Level 4.0 3.7 Chloride Level 95 101 Carbon Dioxide Level 28.7 31.1 Anion Gap 7 4 Estimat Glomerular Filtration Rate 111 172 C-Reactive Protein 2.55 Date/Time Source Procedure Growth Status 02/26/18 17:15 Blood Peripheral Aerobic Blood Culture Pending Received 02/26/18 17:15 Blood Peripheral Anaerobic Blood Culture Pending Received 02/26/18 15:42 Urine Clean Catch Urine Culture Pending Received Result Diagram: 02/27/18 0500 02/27/18 0500 Imaging Last Impressions Foot X-Ray 02/26/18 0000 Signed Impressions: CONCLUSION: 1. Findings concerning for osteomyelitis involving the base of the fourth and fifth metatarsals as well as the cuboid, in the appropriate clinical setting. 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 Septic Shock Reassessment Septic shock perfusion: reassessment completed Caprini VTE Risk Assessment Caprini VTE Risk Assessment: Mod/High Risk (score >= 2) Caprini Risk Assessment Model Point Value = 1 Point Value = 2 Point Value = 3 Point Value = 5 Age 41-60 Minor surgery BMI > 25 kg/m2 Swollen legs Varicose veins or History of unexplained or recurrent spontaneous Oral contraceptives or hormone replacement Sepsis (< 1 month) Serious lung disease, including pneumonia (< 1 month) Abnormal pulmonary function Acute myocardial infarction Congestive heart failure (< 1 month) History of inflammatory bowel disease Medical patient at bed rest Age 61-74 Arthroscopic surgery Major open surgery (> 45 min) Laparoscopic surgery (> 45 min) Malignancy Confined to bed (> 72 hours) Immobilizing plaster cast Central venous access Age >= 75 History of VTE Family history of VTE Factor V Leiden Prothrombin [id number] Lupus anticoagulant Anticardiolipin antibodies Elevated serum homocysteine Heparin-induced thrombocytopenia Other congenital or acquired thrombophilia Stroke (< 1 month) Elective arthroplasty Hip, pelvis, or leg fracture Acute spinal cord injury (< 1 month) Prophylaxis Regimen Total Risk Factor Score Risk Level Prophylaxis Regimen 0-1 Low Early ambulation 2 Moderate Order ONE of the following: *Sequential Compression Device (SCD) *Heparin 5000 units SQ BID 3-4 Higher Order ONE of the following medications: *Heparin 5000 units SQ TID *Enoxaparin/Lovenox 40 mg SQ daily (WT < 150 kg, CrCl > 30 mL/min) *Enoxaparin/Lovenox 30 mg SQ daily (WT < 150 kg, CrCl > 10-29 mL/min) *Enoxaparin/Lovenox 30 mg SQ BID (WT < 150 kg, CrCl > 30 mL/min) AND/OR *Sequential Compression Device (SCD) 5 or more Highest Order ONE of the following medications: *Heparin 5000 units SQ TID (Preferred with Epidurals) *Enoxaparin/Lovenox 40 mg SQ daily (WT < 150 kg, CrCl > 30 mL/min) *Enoxaparin/Lovenox 30 mg SQ daily (WT < 150 kg, CrCl > 10-29 mL/min) *Enoxaparin/Lovenox 30 mg SQ BID (WT < 150 kg, CrCl > 30 mL/min) AND *Sequential Compression Device (SCD) Assessment and Plan Problem List: (1) Diabetes mellitus ICD Code: E11.9 - Type 2 diabetes mellitus without complications (2) Osteomyelitis of toe of left foot ICD Code: M86.9 - Osteomyelitis, unspecified (3) Foot osteomyelitis, right ICD Code: M86.9 - Osteomyelitis, unspecified Status: Acute (4) Diabetic ulcer of left great toe ICD Code: E11.621 - Type 2 diabetes mellitus with foot ulcer; L97.529 - Non- pressure chronic ulcer of other part of left foot with unspecified severity Status: Acute (5) Cellulitis of right foot ICD Code: L03.115 - Cellulitis of right lower limb Status: Acute (6) UTI (urinary tract infection) ICD Code: N39.0 - Urinary tract infection, site not specified Status: Acute Assessment and Plan 62-year-old man with Osteomyelitis of toe of left foot Foot osteomyelitis, right Diabetic ulcer left great toe Cellulitis right foot Foot x-ray noted and reviewed by me with finding concerning for osteomyelitis Will check MRI of right and left foot Currently on IV Zosyn and vancomycin pending culture reports Consult podiatry as well as infectious disease specialist Urinary tract infection Continue with Zosyn pending urine culture Diabetes mellitus 2 Noncompliant Check hemoglobin A1c Starts Levemir 10 units every 12 hours, change to medium sliding scale insulin and continue fingerstick blood glucose monitoring Tobacco abuse Tobacco counseling cessation provided Continue nicotine patch Hypertension Continue with lisinopril 10 mg daily, Procardia 60 mg daily DVT prophylaxis: Bilateral SCDs Code Status Full code Discussed Condition With Patient Physician Certification 2 Midnight Certification Type: Admission for Inpatient Services Order for Inpatient Services The services are ordered in accordance with Medicare regulations or non- Medicare payer requirements, as applicable. In the case of services not specified as inpatient-only, they are appropriately provided as inpatient services in accordance with the 2-midnight benchmark. Estimated LOS (days): 2 days is the estimated time the patient will need to remain in the hospital, assuming treatment plan goals are met and no additional complications. Post-Hospital Plan: Not yet determined Problem Qualifiers (1) Foot osteomyelitis, right: Qualified Codes: M86.9 - Osteomyelitis, unspecified (2) UTI (urinary tract infection): Qualified Codes: N39.0 - Urinary tract infection, site not specified; R31.9 - Hematuria, unspecified Chuck Dial MD February 27, 2018 09:37
[2018-02-27] MEDS ORDERED: GLUCAGON 1 MG/ML VIAL OTHER PRN (10:30)
[2018-02-27] MEDS ORDERED: DEXTROSE 50% IN WATER 50 ML VIAL(D50) IV PUSH PRN (10:30)
[2018-02-27] MEDS: DOCUSATE SODIUM 50 MG/SENNA 8.6 MG TAB PO SCH ×2 (11:38→21:51)
[2018-02-27] MEDS: LISINOPRIL 10 MG TAB PO SCH (11:38)
[2018-02-27] MEDS: traMADol HCL 50 MG TAB PO PRN ×2 (11:38→21:51)
[2018-02-27] MEDS: NIFEdipine 60 MG SUSTAINED RELEASE TAB PO SCH (11:51)
[2018-02-27] MEDS: INSULIN ASPART SUPPLEMENTAL SCALE SQ SCH ×3 (12:00→20:56)
[2018-02-27 12:10] VITALS: BP 146/80; PULSE 82; RESP 16; TEMP 96.6; O2SAT 93
--- NOTE | 2018-02-27 12:58 | PD.CONS ---
History of Present Illness Service Infectious disease Consult Requested By Dr Dial Reason for Consult Evaluate patient with foot infection, and UTI Primary Care Physician No Primary Care Physician Diagnoses: History of Present Illness Patient seen and examined. Records reviewed. Patient is a 62-year-old male, with diabetes, has not been compliant with medication, presented to the hospital after he started experiencing some chills. He also had mentioned that he was having more pain, swelling and redness on his right foot. Patient had prior crush injury to that right foot from years ago, and he has noted some pink discoloration on the top of his foot for months. Apparently he has been doing more ambulation, that he sort of aggravated the right foot, and started noticing increased redness, and pain. Patient also admits to getting some burning when he urinates, and he was apparently found to have a urinary tract infection about a month ago. He went to the ED at that time, and he had significant pyuria, and the urine culture grew staph aureus. He was given Bactrim and completed the treatment. When he gets urinary tract infection, he apparently noted cloudiness in his urine. Patient also had noted some pink discoloration of his urine intermittently. When he started getting chills, he decided to go to the hospital for further evaluation and treatment. Patient states that he has had problem with nocturia but he attributed this to increase oral fluid intake. He denies any previous history of stone. He denies any abdominal pain, suprapubic pressure, nausea or vomiting, or any back pain. He has never really had prostate evaluation. He has not been febrile since admission. His white count was initially elevated, and is down to normal. His urinalysis still shows significant pyuria. Patient has really not had any medical follow-up, and he attributed this to him taking care of his sick mother who passed about 2 months ago Infectious disease consultation has been requested to evaluate the patient with infection on the right foot, as well as urinary tract infection. Review of Systems Constitutional: COMPLAINS OF: Fever, Chills, DENIES: Night Sweats Eyes: DENIES: Eye pain Ears, nose, mouth, throat: DENIES: Nasal discharge, Oral lesions, Throat pain, Ear Pain, Sinus Pain Respiratory: DENIES: Cough, Shortness of breath Cardiovascular: DENIES: Chest pain, Palpitations, Syncope, Dyspnea on Exertion , Orthopnea Gastrointestinal: DENIES: Abdominal pain, Diarrhea, Nausea, Vomiting, Difficulty Swallowing Genitourinary: COMPLAINS OF: Urinary frequency, Hematuria, DENIES: Dysuria, Penile Discharge, Testicular Swelling Musculoskeletal: COMPLAINS OF: Joint pain, Joint Swelling, DENIES: Back pain Integumentary: DENIES: Pruritus, Rash Hematologic/lymphatic: DENIES: Bruising Neurologic: DENIES: Headache, Localized weakness Psychiatric: DENIES: Hallucinations Past Family Social History Allergies: Coded Allergies: No Known Allergies (Unverified Allergy, Unknown, 02/26/18) Past Medical History Hypertension Diabetes Past Surgical History Left foot and ankle surgery Right foot surgery Active Ordered Medications Current Medications Medications (Trade) Dose Ordered Sig/Dawna Route Start Time Stop Time Status Last Admin (NS Flush) 2 ml UNSCH PRN IV FLUSH 02/26/18 18:30 (NS Flush) 2 ml BID IV FLUSH 02/26/18 21:00 (Tylenol) 650 mg Q4H PRN PO 02/26/18 20:00 (Compazine Supp) 25 mg Q12HR PRN RECTAL 02/26/18 21:00 (Restoril) 15 mg HS PRN PO 02/26/18 21:00 02/26/18 23:24 (Narcan Inj) 0.4 mg UNSCH PRN IV PUSH 02/26/18 18:30 (Arielle-Colace) 1 tab BID PO 02/26/18 21:00 02/27/18 11:38 (Milk Of Magnesia Liq) 30 ml Q12HR PRN PO 02/26/18 21:00 (Senokot) 17.2 mg Q12HR PRN PO 02/26/18 21:00 Piperacillin Sod/ Tazobactam Sod 100 ml @ 200 mls/hr Q8H IV 02/26/18 04:00 02/27/18 05:00 Pharmacy Profile Note 0 ml @ 0 mls/hr UNSCH OTHER 02/26/18 18:30 (Ultram) 50 mg Q8H PRN PO 02/26/18 20:00 02/27/18 11:38 Vancomycin HCl 2000 mg/Sodium Chloride 520 ml @ 250 mls/hr Q12H IV 02/27/18 06:00 02/27/18 06:03 ([facility] Ordered Lab Info) SPECIFIC LAB TO BE DRAWN:VANCOMYCIN TROUGH DATE TO... ONCE ONCE .XX 03/01/18 05:45 03/01/18 05:46 (Procardia Xl) 60 mg DAILY PO 02/27/18 09:00 02/27/18 11:51 (Catapres) 0.1 mg Q6HR PRN PO 02/26/18 00:00 (Prinivil) 10 mg DAILY PO 02/27/18 09:00 02/27/18 11:38 (D50w (Vial) Inj) 50 ml UNSCH PRN IV PUSH 02/27/18 10:30 (Glucagon Inj) 1 mg UNSCH PRN OTHER 02/27/18 10:30 (NovoLOG SUPPLEMENTAL SCALE) 1 ACHS SLIDING SCALE SQ 02/27/18 12:00 (Levemir Inj) 10 units Q12HR SQ 02/27/18 21:00 (Habitrol 14 Mg Patch.24 Hr) 1 patch DAILY T-DERMAL 02/28/18 09:00 Miscellaneous Information 1 DAILY T-DERMAL 02/28/18 09:00 Family History Family history of dementia Social History Lives alone Smokes half a pack a day of cigarettes Occasionally drinks alcohol Denies IV drug use 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[employer], currently not working Physical Exam Vital Signs Vital Signs Date Time Temp Pulse Resp B/P (MAP) Pulse Ox O2 Delivery O2 Flow Rate FiO2 02/27/18 12:36 18 02/27/18 12:10 96.6 82 16 146/80 (102) 93 02/27/18 08:29 96.6 82 16 146/80 (102) 93 02/27/18 00:07 95.7 84 20 138/91 (107) 99 02/26/18 22:40 80 128/75 (92) 02/26/18 21:55 92 142/72 (95) 99 Room Air 02/26/18 21:40 140/84 (102) 02/26/18 21:23 183/93 (123) 02/26/18 21:07 168/96 (120) 02/26/18 20:50 85 198/101 (133) 99 Room Air 02/26/18 19:50 98.4 87 16 192/111 (138) 100 Room Air 214/111 (145) 198/101 (133) 02/26/18 14:46 98.8 95 16 170/94 (119) 99 Physical Exam GENERAL: Patient is a well-nourished, well-developed male, awake and alert, not in respiratory distress. SKIN: Cool and dry. No generalized rash, no ecchymoses and no evidence of embolic lesions. HEAD: Atraumatic. Normocephalic. No temporal wasting, or tenderness. EYES: [place] conjunctiva. No petechia or hemorrhage. Pupils equal, round and reactive to light. Extraocular movements full and intact. No scleral icterus. No injection or drainage. EARS, NOSE AND THROAT: Nose without bleeding or purulent nasal discharge. No sinus tenderness. Mucous membranes pink and moist. No oral lesions noted. No exudate. No oral thrush. NECK: Trachea midline. Supple and not tender, no meningeal signs CARDIOVASCULAR: Regular rate and rhythm. No murmurs, rubs or gallops heard RESPIRATORY: Clear to auscultation. Breath sounds equal bilaterally. No rales , wheezing or rhonchi ABDOMEN: Soft, non-tender, nondistended. Bowel sounds present and normoactive. No guarding. No rebound. No organomegaly. No suprapubic fullness or discomfort EXTREMITIES: No clubbing, cyanosis. R foot has redness on dorsum of his foot that goes laterally, has some pitting edema. No wound, but has callus over 1st MT plantar. Also with dry indolent eschar on his L great toe. No calf tenderness. Well perfused and warm. NEUROLOGICAL: Awake and alert. Cranial nerves grossly intact. Motor grossly within normal limits. PSYCHIATRIC: Normal affect, calm and cooperative. LINE: No evidence of infection Laboratory Laboratory Tests Test 02/26/18 15:42 02/26/18 16:03 02/27/18 05:00 Urine Collection Type CLEAN CATCH Urine Color YELLOW Urine Turbidity CLOUDY Urine pH 6.0 Urine Specific [place] 1.020 Urine Protein 100 Urine Glucose (UA) 500 Urine Ketones NEG Urine Occult Blood TRACE Urine Nitrite NEG Urine Bilirubin NEG Urine Urobilinogen 0.2 Urine Leukocyte Esterase LARGE Urine RBC 20-24 Urine WBC 100-200 Urine WBC Clumps MANY Urine Squamous Epithelial Cells 0-5 Urine Bacteria FEW Microscopic Urinalysis Comment CULTURE INDICATED Urine Collection Time 15:42 White Blood Count 12.7 10.2 Red Blood Count 4.52 3.91 Hemoglobin 12.6 10.5 Hematocrit 37.3 32.5 Mean Corpuscular Volume 82.6 83.2 Mean Corpuscular Hemoglobin 27.8 26.9 Mean Corpuscular Hemoglobin Concent 33.7 32.3 Red Cell Distribution Width 13.6 13.2 Platelet Count 597 445 Mean Platelet Volume 8.4 8.6 Neutrophils (%) (Auto) 66.1 62.4 Lymphocytes (%) (Auto) 26.9 27.5 Monocytes (%) (Auto) 5.0 7.2 Eosinophils (%) (Auto) 1.2 2.0 Basophils (%) (Auto) 0.8 0.9 Neutrophils # (Auto) 8.4 6.4 Lymphocytes # (Auto) 3.4 2.8 Monocytes # (Auto) 0.6 0.7 Eosinophils # (Auto) 0.2 0.2 Basophils # (Auto) 0.1 0.1 CBC Comment DIFF FINAL DIFF FINAL Differential Comment Erythrocyte Sedimentation Rate 63 Blood Urea Nitrogen 9 9 Creatinine 0.72 0.49 Random Glucose 283 241 Total Protein 7.8 Albumin 3.4 Calcium Level 9.4 8.6 Alkaline Phosphatase 92 Aspartate Amino Transf (AST/SGOT) 13 Alanine Aminotransferase (ALT/SGPT) 19 Total Bilirubin 0.4 Sodium Level 131 136 Potassium Level 4.0 3.7 Chloride Level 95 101 Carbon Dioxide Level 28.7 31.1 Anion Gap 7 4 Estimat Glomerular Filtration Rate 111 172 C-Reactive Protein 2.55 Date/Time Source Procedure Growth Status 02/26/18 17:15 Blood Peripheral Aerobic Blood Culture - Preliminary NO GROWTH IN 1 DAY Resulted 02/26/18 17:15 Blood Peripheral Anaerobic Blood Culture - Preliminary NO GROWTH IN 1 DAY Resulted 02/26/18 15:42 Urine Clean Catch Urine Culture Pending Received Result Diagram: 02/27/18 0500 02/27/18 0500 Imaging Foot X-Ray 02/26/18 0000 Signed Impressions: CONCLUSION: 1. Findings concerning for osteomyelitis involving the base of the fourth and fifth metatarsals as well as the cuboid, in the appropriate clinical setting. 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 Assessment and Plan Assessment and Plan IMPRESSION UTI, R/O structural abnormality - had Staph aureus previously, not a usual pathogen and usually gets seen in UC in presence of bacteremia, ?prostate focus Cellulitis R foot - prob with Charcot foot, clinically looks more cellulitis than osteo DM, not compliant with Rx RECOMMENDATION Continue Vanco Continue Zosyn for more /GNR covergae CT A/P Follow C/S Monitor progress Will determine course of rx once work-up is completed I will follow along with you Thank you for this consultation Gwen Heath MD February 27, 2018 12:58
[2018-02-27] MEDS ORDERED: IOHEXOL 350 MG/ML 10 ML VIAL (for RAD DIAG) IVCONTRAST ONE (14:58)
--- NOTE | 2018-02-27 15:11 | RADRPT ---
EXAM DATE: 02/27/2018 2:55 PM EDT AGE/SEX: 62 years / Male INDICATIONS: Urinary tract infection. Evaluate kidneys and prostate. CLINICAL DATA: This is the patient's initial encounter. Patient reports that signs and symptoms have been present for 1 day and indicates a pain score of 2/10. MEDICAL/SURGICAL HISTORY: Cardiovascular disease. Hypertension. Diabetes mellitus type II. Um bilical hernia repair. ORAL CONTRAST: No oral contrast ingested. RADIATION DOSE: 18.93 CTDI (mGy) COMPARISON: [facility], CT ABDOMEN & PELVIS W CONTRAST, 04/25/2013. . TECHNIQUE: Multiple contiguous axial images were obtained through the abdomen and pelvis following b olus infusion of 90 ml Omnipaque 350 (iohexol) nonionic water-soluble contrast as a single exam dos e. No oral contrast ingested. Using automated exposure control and adjustment of the mA and/or kV ac cording to patient size, the radiation dose was kept as low as reasonably achievable to obtain optima l diagnostic quality images. FINDINGS: Lung bases are clear. Numerous healed lower right rib fractures. No acute findings in the liver, spleen, adrenals or pancreas. 9 mm nonobstructing calculus lower pole right kidney. There is mild dilatation of the right renal collecting system and right ureter to the level of the ureterovesical junction but no ureteral calculi are seen. There is a 3 mm nonobstructing calculus lower pole left kidney. No calcified gallstones or biliary du ctal dilatation. There is a small fat-containing umbilical hernia. There is mild thickening of the bladder wall and some stranding around the bladder suggesting a cysti tis. Prostate is mildly enlarged. No pelvic adenopathy. CONCLUSION: 1. Mild bladder wall thickening with some stranding of fat around the bladder most characteristic of a cystitis. 2. Dilatation of the right ureter and mild dilatation of the right renal collecting system of uncert ain etiology. No radiopaque calculi are seen in the right ureter. 3. Nonobstructing calculi lower pole both kidneys. Electronically signed by: Zachary Broderick MD 02/27/2018 3:10 PM EDT
[2018-02-27 16:00] VITALS: BP 119/56; PULSE 87; RESP 15; TEMP 96.5; O2SAT 98
[2018-02-27] MEDS ORDERED: GADODIAMIDE PF 287 MG/ML 20 ML VIAL (for RAD MRI) IVCONTRAST ONE (16:00)
--- NOTE | 2018-02-27 16:35 | RADRPT ---
EXAM DATE: 02/27/2018 4:26 PM EDT AGE/SEX: 62 years / Male INDICATIONS: Osteomyelitis. Wound on great toe. CLINICAL DATA: This is the patient's initial encounter. Patient reports that signs and symptoms have been present for 4 - 6 days and indicates a pain score of 0/10. MEDICAL/SURGICAL HISTORY: Hypertension. Diabetes mellitus type II. . Ankle and foot. COMPARISON: No prior [facility] exams available for comparison. TECHNIQUE: Multiplanar, multisequence MRI examination was performed without contrast and after th e intravenous administration of 19 ml Omniscan (gadodiamide) single exam dose. FINDINGS: At the distal phalanx great toe there is decreased T1 marrow signal and there is some marrow enhancem ent postcontrast most characteristic of osteomyelitis. Is also some early marrow enhancement in the p roximal phalanx probably representing mild osteomyelitis as well. No abnormal marrow enhancement is s een in the remainder of left foot. There is mild osteoarthritis. CONCLUSION: 1. Marrow edema and enhancement in the distal phalanx of the great toe and to a lesser extent in the proximal phalanx. Findings most characteristic of osteomyelitis. Electronically signed by: Zachary Broderick MD 02/27/2018 4:33 PM EDT
--- NOTE | 2018-02-27 16:48 | RADRPT ---
EXAM DATE: 02/27/2018 4:34 PM EDT AGE/SEX: 62 years / Male INDICATIONS: Osteomyelitis. Redness and swelling of right foot. CLINICAL DATA: This is the patient's initial encounter. Patient reports that signs and symptoms have been present for 4 - 6 days and indicates a pain score of 0/10. MEDICAL/SURGICAL HISTORY: Diabetes mellitus type II. Hypertension. . Ankle and foot. COMPARISON: No prior [facility] exams available for comparison. TECHNIQUE: Multiplanar, multisequence MRI examination was performed without contrast and after th e intravenous administration of 19 ml Omniscan (gadodiamide) cumulative dose for multiple exams. FINDINGS: There is extensive abnormal marrow signal in bony destruction involving the proximal and mid fourth a nd fifth metatarsals. There is also abnormal marrow enhancement in the proximal third metatarsal. The re is some bony destruction involving the distal cuboid and abnormal marrow signal in the lateral cun eiform. Some abnormal bone marrow edema and enhancement extends into the tarsal navicular as well. Th ere is extensive surrounding soft tissue swelling and edema. There is osteoarthritis throughout the f oot. CONCLUSION: 1. Bone destruction and abnormal marrow enhancement involving the proximal and mid fourth and fifth metatarsals and cuboid. Also abnormal marrow edema and enhancement in the proximal third metatarsal, lateral cuneiform and tarsal navicular. Findings are most characteristic of osteomyelitis although a rapidly progressive Charcot arthropathy could have a similar appearance. Electronically signed by: Zachary Broderick MD 02/27/2018 4:46 PM EDT
[2018-02-27 20:00] VITALS: BP 128/79; PULSE 82; RESP 15; TEMP 96.9; O2SAT 97
[2018-02-27] MEDS: INSULIN DETEMIR 100 UNITS/ML VIAL SQ SCH (20:56)
[2018-02-27] MEDS: TEMAZEPAM 15 MG CAP PO PRN (23:22)
[2018-02-28] VITALS: BP 139/79; PULSE 80; RESP 14; TEMP 97.9; O2SAT 97
[2018-02-28] MEDS: PIPERACIL-TAZO 4.5 GM PREMIX 100 ML IV SCH ×3 (05:35→21:03)
[2018-02-28] MEDS: VANCOMYCIN INJ 2,000 MG in SODIUM CHLORID 0.9% 500 ML INJ 500 ML IV SCH ×2 (05:35→17:02)
[2018-02-28 07:47] VITALS: BP 137/72; PULSE 87; RESP 20; TEMP 97.7; O2SAT 95
[2018-02-28] MEDS: INSULIN DETEMIR 100 UNITS/ML VIAL SQ SCH ×2 (08:33→21:04)
[2018-02-28] MEDS: INSULIN ASPART SUPPLEMENTAL SCALE SQ SCH ×4 (08:34→21:05)
[2018-02-28] MEDS: DOCUSATE SODIUM 50 MG/SENNA 8.6 MG TAB PO SCH ×2 (08:35→21:03)
[2018-02-28] MEDS: LISINOPRIL 10 MG TAB PO SCH (08:36)
[2018-02-28] MEDS: NICOTINE 14 MG/24 HR PATCH T-DERMAL SCH (08:36)
[2018-02-28] MEDS: NIFEdipine 60 MG SUSTAINED RELEASE TAB PO SCH (08:40)
[2018-02-28] MEDS: SODIUM CHLORIDE 0.9% FLUSH 10 ML FLUSH IV FLUSH SCH ×2 (08:43→21:03)
[2018-02-28] MEDS: REMOVE OLD NICOTINE PATCH T-DERMAL SCH (09:00)
--- NOTE | 2018-02-28 09:37 | HHI.PR ---
Subjective Remarks Follow-up osteomyelitis/UTI February 28, 2018-patient seen and examined, no acute event overnight. Currently afebrile. Objective Vitals Vital Signs Date Time Temp Pulse Resp B/P (MAP) Pulse Ox O2 Delivery O2 Flow Rate FiO2 02/28/18 07:47 97.7 87 20 137/72 (93) 95 02/28/18 00:00 97.9 80 14 139/79 (99) 97 02/27/18 20:00 96.9 82 15 128/79 (95) 97 02/27/18 16:00 96.5 87 15 119/56 (77) 98 02/27/18 12:36 18 02/27/18 12:10 96.6 82 16 146/80 (102) 93 I/O 02/27/18 02/27/18 02/27/18 02/28/18 02/28/18 02/28/18 07:00 15:00 23:00 07:00 15:00 23:00 Intake Total 1200 ml Output Total 450 ml Balance -450 ml 1200 ml Intake Oral 1200 ml Output Urine Total 450 ml # Voids 3 # Bowel Movements 1 Result Diagram: 02/27/18 0500 02/27/18 0500 Imaging Last Impressions Foot MRI 02/27/18 0000 Signed Impressions: CONCLUSION: 1. Bone destruction and abnormal marrow enhancement involving the proximal and mid fourth and fifth metatarsals and cuboid. Also abnormal marrow edema and en hancement in the proximal third metatarsal, lateral cuneiform and tarsal navicu lar. Findings are most characteristic of osteomyelitis although a rapidly progr essive Charcot arthropathy could have a similar appearance. Abdomen/Pelvis CT 02/27/18 0000 Signed Impressions: CONCLUSION: 1. Mild bladder wall thickening with some stranding of fat around the bladder most characteristic of a cystitis. 2. Dilatation of the right ureter and mild dilatation of the right renal colle cting system of uncertain etiology. No radiopaque calculi are seen in the right ureter. 3. Nonobstructing calculi lower pole both kidneys. Foot X-Ray 02/26/18 0000 Signed Impressions: CONCLUSION: 1. Findings concerning for osteomyelitis involving the base of the fourth and fifth metatarsals as well as the cuboid, in the appropriate clinical setting. 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 Objective Remarks GENERAL: NAD SKIN: Warm and dry. HEAD: Normocephalic. EYES: No scleral icterus. No injection or drainage. NECK: Supple, trachea midline. No JVD or lymphadenopathy. CARDIOVASCULAR: Regular rate and rhythm without murmurs, gallops, or rubs. RESPIRATORY: Breath sounds equal bilaterally. No accessory muscle use. GASTROINTESTINAL: Abdomen soft, non-tender, nondistended. MUSCULOSKELETAL: No cyanosis, or edema. BACK: Nontender without obvious deformity. No CVA tenderness. A/P Problem List: (1) Diabetes mellitus ICD Code: E11.9 - Type 2 diabetes mellitus without complications (2) Osteomyelitis of toe of left foot ICD Code: M86.9 - Osteomyelitis, unspecified (3) Foot osteomyelitis, right ICD Code: M86.9 - Osteomyelitis, unspecified Status: Acute (4) Diabetic ulcer of left great toe ICD Code: E11.621 - Type 2 diabetes mellitus with foot ulcer; L97.529 - Non- pressure chronic ulcer of other part of left foot with unspecified severity Status: Acute (5) Cellulitis of right foot ICD Code: L03.115 - Cellulitis of right lower limb Status: Acute (6) UTI (urinary tract infection) ICD Code: N39.0 - Urinary tract infection, site not specified Status: Acute Assessment and Plan 62-year-old man with Osteomyelitis of toe of left foot Foot osteomyelitis, right Diabetic ulcer left great toe Cellulitis right foot Foot x-ray noted and reviewed by me with finding concerning for osteomyelitis MRI of right and left foot with evidence of osteomyelitis Currently on IV Zosyn and vancomycin pending culture reports Appreciate input from infectious disease specialist pending podiatry Will check CTA runoff Urinary tract infection Continue with Zosyn pending urine culture CT abdomen noted in review Diabetes mellitus 2 Noncompliant Hemoglobin A1c Continue Levemir 10 units every 12 hours, medium sliding scale insulin and fingerstick blood glucose monitoring Tobacco abuse Tobacco counseling cessation provided Continue nicotine patch Hypertension Continue with lisinopril 10 mg daily, Procardia 60 mg daily DVT prophylaxis: Bilateral SCDs Problem Qualifiers (1) Foot osteomyelitis, right: Qualified Codes: M86.9 - Osteomyelitis, unspecified (2) UTI (urinary tract infection): Qualified Codes: N39.0 - Urinary tract infection, site not specified; R31.9 - Hematuria, unspecified Chuck Dial MD February 28, 2018 09:37
[2018-02-28 11:26] VITALS: BP 159/74; PULSE 84; RESP 20; TEMP 99.2; O2SAT 95
[2018-02-28] MEDS: traMADol HCL 50 MG TAB PO PRN ×2 (13:20→22:06)
--- NOTE | 2018-02-28 13:33 | HHI.IDPN ---
Subjective Subjective Remarks Patient is a 62-year-old male, with diabetes, has not been compliant with medication, presented to the hospital after he started experiencing some chills. He also had mentioned that he was having more pain, swelling and redness on his right foot. Patient had prior crush injury to that right foot from years ago, and he has noted some pink discoloration on the top of his foot for months. Apparently he has been doing more ambulation, that he sort of aggravated the right foot, and started noticing increased redness, and pain. Patient also admits to getting some burning when he urinates, and he was apparently found to have a urinary tract infection about a month ago. He went to the ED at that time, and he had significant pyuria, and the urine culture grew staph aureus. He was given Bactrim and completed the treatment. When he gets urinary tract infection, he apparently noted cloudiness in his urine. Patient also had noted some pink discoloration of his urine intermittently. When he started getting chills, he decided to go to the hospital for further evaluation and treatment. Patient states that he has had problem with nocturia but he attributed this to increase oral fluid intake. He denies any previous history of stone. He denies any abdominal pain, suprapubic pressure, nausea or vomiting, or any back pain. He has never really had prostate evaluation. He has not been febrile since admission. His white count was initially elevated, and is down to normal. His urinalysis still shows significant pyuria. Patient has really not had any medical follow-up, and he attributed this to him taking care of his sick mother who passed about 2 months ago Infectious disease consultation has been requested to evaluate the patient with infection on the right foot, as well as urinary tract infection. Notes reviewed Temps ok BP ok Notes urine not as cloudy R foot redness and swelling less Chronic ulcer L great toe MRI L foot, ?osteo great toe CT A/P, ?obstruction R kidney; stone L kidney, no obstruction UC MSSA BC negative Antibiotics Vancomycin Zosyn Current Medications Medications (Trade) Dose Ordered Sig/Dawna Route Start Time Stop Time Status Last Admin (NS Flush) 2 ml UNSCH PRN IV FLUSH 02/26/18 18:30 (NS Flush) 2 ml BID IV FLUSH 02/26/18 21:00 (Tylenol) 650 mg Q4H PRN PO 02/26/18 20:00 (Compazine Supp) 25 mg Q12HR PRN RECTAL 02/26/18 21:00 (Restoril) 15 mg HS PRN PO 02/26/18 21:00 02/27/18 23:22 (Narcan Inj) 0.4 mg UNSCH PRN IV PUSH 02/26/18 18:30 (Arielle-Colace) 1 tab BID PO 02/26/18 21:00 02/28/18 08:35 (Milk Of Magnbob Liq) 30 ml Q12HR PRN PO 02/26/18 21:00 (Senokot) 17.2 mg Q12HR PRN PO 02/26/18 21:00 Piperacillin Sod/ Tazobactam Sod 100 ml @ 200 mls/hr Q8H IV 02/26/18 04:00 02/28/18 12:39 Pharmacy Profile Note 0 ml @ 0 mls/hr UNSCH OTHER 02/26/18 18:30 (Ultram) 50 mg Q8H PRN PO 02/26/18 20:00 02/28/18 13:20 Vancomycin HCl 2000 mg/Sodium Chloride 520 ml @ 250 mls/hr Q12H IV 02/27/18 06:00 02/28/18 05:35 ([facility] Ordered Lab Info) SPECIFIC LAB TO BE DRAWN:VANCOMYCIN TROUGH DATE TO... ONCE ONCE .XX 03/01/18 05:45 03/01/18 05:46 (Procardia Xl) 60 mg DAILY PO 02/27/18 09:00 02/28/18 08:40 (Catapres) 0.1 mg Q6HR PRN PO 02/26/18 00:00 (Prinivil) 10 mg DAILY PO 02/27/18 09:00 02/28/18 08:36 (D50w (Vial) Inj) 50 ml UNSCH PRN IV PUSH 02/27/18 10:30 (Glucagon Inj) 1 mg UNSCH PRN OTHER 02/27/18 10:30 (NovoLOG SUPPLEMENTAL SCALE) 1 ACHS SLIDING SCALE SQ 02/27/18 12:00 02/28/18 11:33 (Levemir Inj) 10 units Q12HR SQ 02/27/18 21:00 02/28/18 08:33 (Habitrol 14 Mg Patch.24 Hr) 1 patch DAILY T-DERMAL 02/28/18 09:00 Miscellaneous Information 1 DAILY T-DERMAL 02/28/18 09:00 Lines PIV no evidence of infection Past Medical History Hypertension Diabetes Past Surgical History Left foot and ankle surgery Right foot surgery Allergies: Coded Allergies: No Known Allergies (Unverified Allergy, Unknown, 02/26/18) Objective . Vital Signs Date Time Temp Pulse Resp B/P (MAP) Pulse Ox O2 Delivery O2 Flow Rate FiO2 02/28/18 11:26 99.2 84 20 159/74 (102) 95 02/28/18 07:47 97.7 87 20 137/72 (93) 95 02/28/18 00:00 97.9 80 14 139/79 (99) 97 02/27/18 20:00 96.9 82 15 128/79 (95) 97 02/27/18 16:00 96.5 87 15 119/56 (77) 98 02/28/18 02/28/18 03/01/18 15:00 23:00 07:00 Output Total 7 ml Balance -7 ml Stool Total 7 ml # Bowel Movements 1 . Laboratory Tests Test 02/26/18 16:03 02/27/18 05:00 White Blood Count 12.7 TH/MM3 10.2 TH/MM3 Red Blood Count 4.52 MIL/MM3 3.91 MIL/MM3 Hemoglobin 12.6 GM/DL 10.5 GM/DL Hematocrit 37.3 % 32.5 % Mean Corpuscular Volume 82.6 FL 83.2 FL Mean Corpuscular Hemoglobin 27.8 PG 26.9 PG Mean Corpuscular Hemoglobin Concent 33.7 % 32.3 % Red Cell Distribution Width 13.6 % 13.2 % Platelet Count 597 TH/MM3 445 TH/MM3 Mean Platelet Volume 8.4 FL 8.6 FL Neutrophils (%) (Auto) 66.1 % 62.4 % Lymphocytes (%) (Auto) 26.9 % 27.5 % Monocytes (%) (Auto) 5.0 % 7.2 % Eosinophils (%) (Auto) 1.2 % 2.0 % Basophils (%) (Auto) 0.8 % 0.9 % Neutrophils # (Auto) 8.4 TH/MM3 6.4 TH/MM3 Lymphocytes # (Auto) 3.4 TH/MM3 2.8 TH/MM3 Monocytes # (Auto) 0.6 TH/MM3 0.7 TH/MM3 Eosinophils # (Auto) 0.2 TH/MM3 0.2 TH/MM3 Basophils # (Auto) 0.1 TH/MM3 0.1 TH/MM3 CBC Comment DIFF FINAL DIFF FINAL Differential Comment Erythrocyte Sedimentation Rate 63 mm/hr Laboratory Tests Test 02/26/18 16:03 02/27/18 05:00 02/28/18 05:03 Blood Urea Nitrogen 9 MG/DL 9 MG/DL Creatinine 0.72 MG/DL 0.49 MG/DL Random Glucose 283 MG/DL 241 MG/DL Total Protein 7.8 GM/DL Albumin 3.4 GM/DL Calcium Level 9.4 MG/DL 8.6 MG/DL Alkaline Phosphatase 92 U/L Aspartate Amino Transf (AST/SGOT) 13 U/L Alanine Aminotransferase (ALT/SGPT) 19 U/L Total Bilirubin 0.4 MG/DL Sodium Level 131 MEQ/L 136 MEQ/L Potassium Level 4.0 MEQ/L 3.7 MEQ/L Chloride Level 95 MEQ/L 101 MEQ/L Carbon Dioxide Level 28.7 MEQ/L 31.1 MEQ/L Anion Gap 7 MEQ/L 4 MEQ/L Estimat Glomerular Filtration Rate 111 ML/MIN 172 ML/MIN C-Reactive Protein 2.55 MG/DL Microbiology Date/Time Source Procedure Growth Status 02/26/18 17:15 Blood Peripheral Aerobic Blood Culture - Preliminary NO GROWTH IN 2 DAYS Resulted 02/26/18 17:15 Blood Peripheral Anaerobic Blood Culture - Preliminary NO GROWTH IN 2 DAYS Resulted 02/26/18 17:00 Blood Peripheral Aerobic Blood Culture - Preliminary NO GROWTH IN 2 DAYS Resulted 02/26/18 17:00 Blood Peripheral Anaerobic Blood Culture - Preliminary NO GROWTH IN 2 DAYS Resulted 02/26/18 15:42 Urine Clean Catch Urine Culture - Final Staphylococcus Aureus Complete Physical Exam GENERAL: awake and alert, not in respiratory distress. SKIN: Cool and dry. No generalized rash, no ecchymoses and no evidence of embolic lesions. HEAD: Atraumatic. Normocephalic. No temporal wasting, or tenderness. EYES: [place] conjunctiva. No petechia or hemorrhage. Pupils equal, round and reactive to light. Extraocular movements full and intact. No scleral icterus. No injection or drainage. EARS, NOSE AND THROAT: Nose without bleeding or purulent nasal discharge. No sinus tenderness. Mucous membranes pink and moist. No oral lesions noted. No exudate. No oral thrush. NECK: Trachea midline. Supple and not tender, no meningeal signs CARDIOVASCULAR: Regular rate and rhythm. No murmurs, rubs or gallops heard RESPIRATORY: Clear to auscultation. Breath sounds equal bilaterally. No rales , wheezing or rhonchi ABDOMEN: Soft, non-tender, nondistended. Bowel sounds present and normoactive. No guarding. No rebound. No organomegaly. No suprapubic fullness or discomfort EXTREMITIES: No clubbing, cyanosis. R foot has improving redness on dorsum of his foot that goes laterally, has improving edema. No wound, but has callus over 1st MT plantar. Also with ulcer L great toe with small amount of bloody drainage. No calf tenderness. Well perfused and warm. NEUROLOGICAL: Non-focal. PSYCHIATRIC: Normal affect, calm and cooperative. LINE: No evidence of infection Assessment & Plan Remarks IMPRESSION UTI, R/O structural abnormality - had Staph aureus previously, not a usual pathogen and usually gets seen in UC in presence of bacteremia, ?prostate focus - has MSSA again Cellulitis R foot - prob with Charcot foot, clinically looks more cellulitis than osteo Ulcer L great toe, has findings suggestive of osteo on the MRI DM, not compliant with Rx RECOMMENDATION Continue Vanco Continue Zosyn for more /GNR covergae Follow C/S Repeat UA urology evaluation R kidney, ?hydro Podiatry has been consulted for the L great toe Monitor progress Will determine course of rx once work-up is completed Gwen Heath MD February 28, 2018 13:33
[2018-02-28 13:59] LABS: BILIRUBIN, URINE NEG (NEG); BLOOD, URINE NEG (NEG); GLUCOSE,URINE 1000 OR GREATER mg/dL (NEG); KETONE, URINE NEG (NEG); NITRITE,URINE NEG (NEG); URINE COLOR YELLOW (YELLW/STRAW); URINE LEUKOCYTE ESTERASE NEG (NEG)
[2018-02-28 14:19] LABS: RBC, URINE 0-3 /hpf (0-3); SQUAMOUS EPITHELIAL CELL URINE 0-5 /hpf (0-5)
[2018-02-28 14:48] LABS: HEMOGLOBIN A1C 11.6 % (4.3-6.0)
[2018-02-28 15:17] VITALS: BP 140/78; PULSE 78; RESP 20; TEMP 96.3; O2SAT 96
[2018-02-28] MEDS ORDERED: IOHEXOL 350 MG/ML 10 ML VIAL (for RAD DIAG) IVCONTRAST ONE (16:02)
--- NOTE | 2018-02-28 17:00 | RADRPT ---
EXAM DATE: 02/28/2018 4:45 PM EDT AGE/SEX: 62 years / Male INDICATIONS: Evaluate for occlusion. CLINICAL DATA: This is the patient's initial encounter. Patient reports that signs and symptoms have been present for 1 week and indicates a pain score of 6/10. MEDICAL/SURGICAL HISTORY: Diabetes. Hypertension. None. RADIATION DOSE: 6.38 CTDI (mGy) COMPARISON: No prior [facility] exams available for comparison. TECHNIQUE: Volumetric scanning was performed using a multi-row detector CT scanner during bolus infu greta of 100 ml Omnipaque 350 (iohexol) nonionic water-soluble contrast as a single exam dose. The data was post processed with a variety of visualization algorithms including full volume maximum inte nsity projection, multi-planar sliding thin slab reformation, curved planar reformation, and surface rendering techniques. Using automated exposure control and adjustment of the mA and/or kV according to patient size, radiation dose was kept as low as reasonably achievable to obtain optimal diagnostic quality images. FINDINGS: The abdominal aorta is notable for mild atheromatous irregularity and patchy intimal calcification. N o aortic stenosis is identified. No aneurysm present. The aortic visceral vessels are satisfactory in appearance. Specifically, the celiac, SMA, renal arteries and AYE appear widely patent. There is no evidence of iliac stenosis. The hypogastrics are patent bilaterally. The common femoral arteries are healthy in appearance with incidental high bifurcation at the level of the mid femoral head on both s ides. Profundas are widely patent. In the legs, there is mild eccentric distal SFA disease present bilaterally, slightly worse on the le ft than the right. The popliteal arteries are relatively healthy in appearance and lead to satisfacto ry three-vessel calf runoff bilaterally. Elsewhere on the exam, note is made of a nonobstructing stone in the lower pole collecting system of the right kidney, however there is also mild hydronephrosis and hydroureter down to the level of the right ureterovesical junction. No clear explanation for the collecting system dilatation. Small fat-c ontaining umbilical hernia is noted. CONCLUSION: No significant aortoiliac inflow disease Mild distal SFA disease bilaterally, left worse than right. Mild right-sided hydronephrosis and hydroureter of undetermined etiology Electronically signed by: Bolivar Dias MD 02/28/2018 4:59 PM EDT
--- NOTE | 2018-02-28 17:53 | MB ---
cc: Levy Ordoñez MD, Evan M MD DATE: 02/28/2018 REASON FOR CONSULTATION: 1. Recurrent urinary tract infections. 2. Bilateral kidney stones. HISTORY OF PRESENT ILLNESS: The patient is a 62-year-old male with history of type 2 diabetes who is noncompliant, who presented to the ED for evaluation of right foot pain for the last several months as well as redness and swelling. He also, during evaluation, reported of some pain with urination as well as blood in his urine which started about a month ago. He was also seen for a similar issue for his foot and urine back on 02/04 and was prescribed Bactrim. He states he has not really sought medical attention in the past due to severe medical issues with his mother until she passed several months ago. During his hospital stay, he has had a CT abdomen and pelvis without contrast done, which showed bilateral kidney stones including 9 mm stone in his right kidney and questionable right proximal hydronephrosis. He also had a 4 mm stone in his left kidney without any evidence of hydronephrosis. The patient was admitted for IV antibiotics. Urology was consulted for UTI and these kidney stones. The patient does have baseline urinary tract symptoms including nocturia times 2 to 3, but he states he drinks a lot of water. Denies prior episodes of blood in his urine prior to a month ago. He denies flank pain, nausea, vomiting, fevers or chills. Denies any family history of kidney stones or prostate cancer, but he states he was not really close with his family. Denies any weight loss or any bone or back pain. REVIEW OF SYSTEMS: See HPI. Otherwise all systems reviewed otherwise are negative. PAST MEDICAL HISTORY: Significant for diabetes, hypertension, urinary tract infection. PAST SURGICAL HISTORY: Circumcision. MEDICATIONS: None. ALLERGIES: NO KNOWN DRUG ALLERGIES. FAMILY HISTORY: Denies urolithiasis or genitourinary malignancy. SOCIAL HISTORY: Smokes 1/2 pack per day. Denies alcohol or illicit drug use. PHYSICAL EXAMINATION: VITAL SIGNS: T-max 99.2, pulse 78, respiratory rate 20, BP 140/78, saturating 96% on room air. GENERAL: Alert and oriented x3, no apparent distress, pleasant cooperative gentleman who appears stated age. HEENT: Head is normocephalic, atraumatic. Eyes: No scleral icterus. Extraocular muscles intact. NECK: Supple. Trachea is midline. No JVD. SKIN: No ulcers or rashes are visible. Mucous membranes pink and moist. LUNGS: Clear to auscultation bilaterally. No wheezes, rales or rhonchi. HEART: Regular rhythm. No murmurs, gallops or rubs. ABDOMEN: Soft, nontender, nondistended, positive bowel sounds. GENITOURINARY: He has no CVA tenderness bilaterally. Penis is circumcised. Testes descended bilaterally. Normal size and consistency without mass. EXTREMITIES: Nontender. No clubbing, cyanosis, or edema. MUSCULOSKELETAL: Full range of motion in all 4 extremities. NEUROLOGIC: Cranial nerves 2-12 intact. Strength 5/5 all 4 extremities. PSYCHIATRIC: Normal affect. Answers questions appropriately. LABORATORY DATA: White count 10.2, hemoglobin 10.5, hematocrit 32.5, platelet count 445. Sodium 136, potassium 3.7, chloride 101, bicarbonate 31.1, BUN 9, creatinine 0.49. His urine showed greater than 200 white blood cells, large red blood cells, negative nitrites, but 500 glucose. A urine culture from 02/26 grew out Staphylococcus aureus. Current blood cultures are currently negative growth at this time. IMAGING STUDIES: CT abdomen and pelvis without contrast images are reviewed, agree with radiologist's report. Patient has bilateral stones, including 9 mm in the right side with questionable hydronephrosis and 5 mm stone on the left side with no evidence of hydronephrosis. ASSESSMENT AND PLAN: The patient is a 62-year-old male who was admitted with a urinary tract infection and found to have bilateral renal stones, largest 9 mm on the right side. PLAN: 1. Recommend continuing antibiotics per Infectious Disease recommendations, following up on all urine cultures. 2. His urinary tract infection is likely a result of his kidney stones, which are likely nidus for infection. He will ultimately need those stones, which could be done on an outpatient basis once his other issues have resolved. 3. We will also check a postvoid residual to ensure that he is emptying his bladder as on his CTA done today his bladder appears to be slightly distended and a thickened bladder wall. 4. He has very mild right-sided hydronephrosis in the renal pelvis, which could just be extrarenal pelvis versus mild ureteropelvic junction obstruction. Since he is currently asymptomatic and his renal function is normal, recommend conservative management at this time. Thank you for this consult. MD MARISA Goncalves/ , 05:09 PM , 05:53 PM
[2018-02-28] MEDS: TAMSULOSIN HCL 0.4 MG CAP PO SCH (18:00)
--- NOTE | 2018-02-28 19:31 | PD.CONS ---
History of Present Illness Service Podiatry/foot and ankle surgery Consult Requested By Reason for Consult Right foot osteomyelitis, left foot osteomyelitis and plantar hallux wound Primary Care Physician No Primary Care Physician Diagnoses: History of Present Illness Podiatry consulted for this 62-year-old male with diabetes who has not been compliant with medication for left plantar hallux ulcer and right foot osteomyelitis. Patient states he presented to the ER because he had been experiencing some chills, expect to go home that same day but he is frustrated that he is still here days later. He reports increased pain swelling and redness to right foot. He does report a crush injury years ago however he denies any open wounds. Patient states his been taking care of his mother who recently and he has noted increased redness pain and swelling ever since he is increased activity. Review of Systems Constitutional: DENIES: Fatigue, Fever Eyes: DENIES: Blurred vision Respiratory: DENIES: Cough, Shortness of breath Cardiovascular: DENIES: Chest pain, Palpitations Gastrointestinal: DENIES: Abdominal pain Neurologic: COMPLAINS OF: Abnormal gait Psychiatric: DENIES: Anxiety, Confusion Past Family Social History Allergies: Coded Allergies: No Known Allergies (Unverified Allergy, Unknown, 02/26/18) Past Medical History As dictated per HPI Active Ordered Medications Current Medications Medications (Trade) Dose Ordered Sig/Dawna Route Start Time Stop Time Status Last Admin (NS Flush) 2 ml UNSCH PRN IV FLUSH 02/26/18 18:30 (NS Flush) 2 ml BID IV FLUSH 02/26/18 21:00 (Tylenol) 650 mg Q4H PRN PO 02/26/18 20:00 (Compazine Supp) 25 mg Q12HR PRN RECTAL 02/26/18 21:00 (Restoril) 15 mg HS PRN PO 02/26/18 21:00 02/27/18 23:22 (Narcan Inj) 0.4 mg UNSCH PRN IV PUSH 02/26/18 18:30 (Arielle-Colace) 1 tab BID PO 02/26/18 21:00 02/28/18 08:35 (Milk Of Magnesia Liq) 30 ml Q12HR PRN PO 02/26/18 21:00 (Senokot) 17.2 mg Q12HR PRN PO 02/26/18 21:00 Piperacillin Sod/ Tazobactam Sod 100 ml @ 200 mls/hr Q8H IV 02/26/18 04:00 02/28/18 12:39 Pharmacy Profile Note 0 ml @ 0 mls/hr UNSCH OTHER 02/26/18 18:30 (Ultram) 50 mg Q8H PRN PO 02/26/18 20:00 02/28/18 13:20 Vancomycin HCl 2000 mg/Sodium Chloride 520 ml @ 250 mls/hr Q12H IV 02/27/18 06:00 02/28/18 17:02 ([facility] Ordered Lab Info) SPECIFIC LAB TO BE DRAWN:VANCOMYCIN TROUGH DATE TO... ONCE ONCE .XX 03/01/18 05:45 03/01/18 05:46 (Procardia Xl) 60 mg DAILY PO 02/27/18 09:00 02/28/18 08:40 (Catapres) 0.1 mg Q6HR PRN PO 02/26/18 00:00 (Prinivil) 10 mg DAILY PO 02/27/18 09:00 02/28/18 08:36 (D50w (Vial) Inj) 50 ml UNSCH PRN IV PUSH 02/27/18 10:30 (Glucagon Inj) 1 mg UNSCH PRN OTHER 02/27/18 10:30 (NovoLOG SUPPLEMENTAL SCALE) 1 ACHS SLIDING SCALE SQ 02/27/18 12:00 02/28/18 16:50 (Levemir Inj) 10 units Q12HR SQ 02/27/18 21:00 02/28/18 08:33 (Habitrol 14 Mg Patch.24 Hr) 1 patch DAILY T-DERMAL 02/28/18 09:00 Miscellaneous Information 1 DAILY T-DERMAL 02/28/18 09:00 (Flomax) 0.4 mg DAILY PO 02/28/18 18:00 02/28/18 18:00 Physical Exam Vital Signs Vital Signs Date Time Temp Pulse Resp B/P (MAP) Pulse Ox O2 Delivery O2 Flow Rate FiO2 02/28/18 15:17 96.3 78 20 140/78 (98) 96 02/28/18 14:20 20 02/28/18 11:26 99.2 84 20 159/74 (102) 95 02/28/18 07:47 97.7 87 20 137/72 (93) 95 02/28/18 00:00 97.9 80 14 139/79 (99) 97 02/27/18 20:00 96.9 82 15 128/79 (95) 97 Physical Exam GENERAL: This is a well-nourished, well-developed patient, in no apparent distress. SKIN: Left plantar hallux wound with hyperkeratotic border HEAD: Atraumatic. EYES: Pupils equal round and reactive. ENT: Airway patent. NECK: Trachea midline. RESPIRATORY: Nonlabored breathing. MUSCULOSKELETAL:. Negative Homans sign bilaterally. NEUROLOGICAL: Awake and alert. Normal speech. Lower extremity physical exam: Vascular: Dorsalis pedis 2/4, posterior tibial 2/4, bounding pulses noted to right lower extremity. Capillary refill time within normal limits to digits 5 bilateral foot. Edema present bilateral foot Neuro: Gross sensation intact to bilateral lower extremity. Pinpoint sensation decreased bilateral foot. No hyperalgesia noted to bilateral lower extremity Dermatology: Increased redness and swelling noted to lateral aspect of right foot, no open lesions. Left plantar hallux ulceration with no probe to bone hyperkeratotic borders, fibro granular base, no clinical signs of infection, no purulent drainage noted upon compression. Musculoskeletal: No tenderness to palpation noted. Laboratory Laboratory Tests Test 02/28/18 05:03 02/28/18 13:45 Hemoglobin A1c 11.6 Urine Collection Type CLEAN CATCH Urine Color YELLOW Urine Turbidity CLEAR Urine pH 6.0 Urine Specific [place] 1.010 Urine Protein 30 Urine Glucose (UA) 1000 OR GREATER Urine Ketones NEG Urine Occult Blood NEG Urine Nitrite NEG Urine Bilirubin NEG Urine Urobilinogen 0.2 Urine Leukocyte Esterase NEG Urine RBC 0-3 Urine Squamous Epithelial Cells 0-5 Urine Collection Time 13:45 Date/Time Source Procedure Growth Status 02/26/18 17:15 Blood Peripheral Aerobic Blood Culture - Preliminary NO GROWTH IN 2 DAYS Resulted 02/26/18 17:15 Blood Peripheral Anaerobic Blood Culture - Preliminary NO GROWTH IN 2 DAYS Resulted 02/26/18 15:42 Urine Clean Catch Urine Culture - Final Staphylococcus Aureus Complete Result Diagram: 02/27/18 0500 02/27/18 0500 Imaging Last Impressions Aorta w/Runoff CTA 02/28/18 0000 Signed Impressions: CONCLUSION: No significant aortoiliac inflow disease Mild distal SFA disease bilaterally, left worse than right. Mild right-sided hydronephrosis and hydroureter of undetermined etiology Foot MRI 02/27/18 0000 Signed Impressions: CONCLUSION: 1. Bone destruction and abnormal marrow enhancement involving the proximal and mid fourth and fifth metatarsals and cuboid. Also abnormal marrow edema and en hancement in the proximal third metatarsal, lateral cuneiform and tarsal navicu lar. Findings are most characteristic of osteomyelitis although a rapidly progr essive Charcot arthropathy could have a similar appearance. Abdomen/Pelvis CT 02/27/18 0000 Signed Impressions: CONCLUSION: 1. Mild bladder wall thickening with some stranding of fat around the bladder most characteristic of a cystitis. 2. Dilatation of the right ureter and mild dilatation of the right renal colle cting system of uncertain etiology. No radiopaque calculi are seen in the right ureter. 3. Nonobstructing calculi lower pole both kidneys. Foot X-Ray 02/26/18 0000 Signed Impressions: CONCLUSION: 1. Findings concerning for osteomyelitis involving the base of the fourth and fifth metatarsals as well as the cuboid, in the appropriate clinical setting. 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 Assessment and Plan Assessment and Plan 62-year-old male with right foot Charcot versus osteomyelitis, left foot plantar hallux wound with positive osteomyelitis noted on MRI Patient examined evaluated with all questions answered Right foot most likely Charcot arthropathy, patient is refusing bone scan at this time to help differentiate between osteomyelitis and Charcot arthropathy as he states there were no difference in his treatment Patient is to remain nonweightbearing to right foot Patient is adamantly refusing any sort of amputation for left hallux osteomyelitis he would like to trial IV antibiotics Left plantar hallux wound care dressings placed We will place home health care orders for wound dressing of left foot Antibiotics per Corinna Bunch DPM February 28, 2018 19:31
--- NOTE | 2018-02-28 19:32 | HHI.FF ---
Face to Face Verification Diagnosis: (1) Diabetic ulcer of left great toe Home Health Nursing Order: Wound care and dressing changes Instructions: Please apply Santyl with moist to dry dressing to left hallux ulceration. I have seen patient Bolivar Rizo on 02/28/18. My clinical findings support the need for the requested home health care services because: Deconditioned w/ increased weakness Limited ability to care for self Infection w/ risk of complications I certify that my clinical findings support that this patient is homebound because: Unsteady gait/balance Corinna Blake DPM February 28, 2018 19:32
[2018-02-28 20:00] VITALS: BP 133/74; PULSE 73; RESP 16; TEMP 97.9; O2SAT 95
[2018-02-28] MEDS ORDERED: COLLAGENASE OINT 30 GM TUBE TOPICAL ONE (20:00)
[2018-02-28] MEDS: TEMAZEPAM 15 MG CAP PO PRN (22:35)
[2018-03-01] VITALS (8 sets, daily range): BP systolic 129–142; BP diastolic 67–81; PULSE 76–88; RESP 16–20; TEMP 97.1–99.6; O2SAT 95–97
[2018-03-01] MEDS: PIPERACIL-TAZO 4.5 GM PREMIX 100 ML IV SCH ×3 (03:27→19:43)
[2018-03-01] MEDS: VANCOMYCIN INJ 2,000 MG in SODIUM CHLORID 0.9% 500 ML INJ 500 ML IV SCH (05:44)
[2018-03-01] MEDS ORDERED: PHARMACY ORDERED LAB ONE (05:45)
[2018-03-01] MEDS: LISINOPRIL 10 MG TAB PO SCH (08:12)
[2018-03-01] MEDS: NIFEdipine 60 MG SUSTAINED RELEASE TAB PO SCH (08:13)
[2018-03-01] MEDS: DOCUSATE SODIUM 50 MG/SENNA 8.6 MG TAB PO SCH ×2 (08:13→21:30)
[2018-03-01] MEDS: INSULIN DETEMIR 100 UNITS/ML VIAL SQ SCH ×2 (08:13→21:32)
[2018-03-01] MEDS: REMOVE OLD NICOTINE PATCH T-DERMAL SCH (08:15)
[2018-03-01] MEDS: NICOTINE 14 MG/24 HR PATCH T-DERMAL SCH (08:15)
[2018-03-01] MEDS: SODIUM CHLORIDE 0.9% FLUSH 10 ML FLUSH IV FLUSH SCH ×2 (08:17→21:30)
[2018-03-01] MEDS: INSULIN ASPART SUPPLEMENTAL SCALE SQ SCH ×4 (08:17→21:31)
[2018-03-01] MEDS: TAMSULOSIN HCL 0.4 MG CAP PO SCH ×2 (08:18→09:42)
--- NOTE | 2018-03-01 08:44 | HHI.PR ---
Subjective Remarks Follow-up osteomyelitis/UTI February 28, 2018-patient seen and examined, no acute event overnight. Currently afebrile. March 01, 2018-patient seen and examined, afebrile. Patient refused the idea of left toe amputation as well as bone scan offered by podiatry yesterday. He stated, he will take his chance with IV antibiotic therapy. Denies any flank pain or symptoms of dysuria. Objective Vitals Vital Signs Date Time Temp Pulse Resp B/P (MAP) Pulse Ox O2 Delivery O2 Flow Rate FiO2 03/01/18 07:55 97.3 77 18 140/67 (91) 96 03/01/18 04:00 99.6 80 17 141/81 (101) 95 03/01/18 00:00 98.2 76 16 129/80 (96) 96 02/28/18 23:06 20 02/28/18 20:00 97.9 73 16 133/74 (93) 95 02/28/18 15:17 96.3 78 20 140/78 (98) 96 02/28/18 11:26 99.2 84 20 159/74 (102) 95 I/O 02/28/18 02/28/18 02/28/18 03/01/18 03/01/18 03/01/18 07:00 15:00 23:00 07:00 15:00 23:00 Intake Total 1180 ml 500 ml 520 ml Output Total 7 ml 900 ml Balance -7 ml 1180 ml 500 ml -380 ml Intake Oral 1080 ml 500 ml IV Total 100 ml 520 ml Output Urine Total 900 ml Stool Total 7 ml # Voids 6 2 # Bowel Movements 1 Result Diagram: 02/27/18 0500 02/27/18 0500 Imaging Last Impressions Aorta w/Runoff CTA 02/28/18 0000 Signed Impressions: CONCLUSION: No significant aortoiliac inflow disease Mild distal SFA disease bilaterally, left worse than right. Mild right-sided hydronephrosis and hydroureter of undetermined etiology Foot MRI 02/27/18 0000 Signed Impressions: CONCLUSION: 1. Bone destruction and abnormal marrow enhancement involving the proximal and mid fourth and fifth metatarsals and cuboid. Also abnormal marrow edema and en hancement in the proximal third metatarsal, lateral cuneiform and tarsal navicu lar. Findings are most characteristic of osteomyelitis although a rapidly progr essive Charcot arthropathy could have a similar appearance. Abdomen/Pelvis CT 02/27/18 0000 Signed Impressions: CONCLUSION: 1. Mild bladder wall thickening with some stranding of fat around the bladder most characteristic of a cystitis. 2. Dilatation of the right ureter and mild dilatation of the right renal colle cting system of uncertain etiology. No radiopaque calculi are seen in the right ureter. 3. Nonobstructing calculi lower pole both kidneys. Foot X-Ray 02/26/18 0000 Signed Impressions: CONCLUSION: 1. Findings concerning for osteomyelitis involving the base of the fourth and fifth metatarsals as well as the cuboid, in the appropriate clinical setting. 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 Objective Remarks GENERAL: NAD SKIN: Warm and dry. Improving right foot erythema HEAD: Normocephalic. EYES: No scleral icterus. No injection or drainage. NECK: Supple, trachea midline. No JVD or lymphadenopathy. CARDIOVASCULAR: Regular rate and rhythm without murmurs, gallops, or rubs. RESPIRATORY: Breath sounds equal bilaterally. No accessory muscle use. GASTROINTESTINAL: Abdomen soft, non-tender, nondistended. MUSCULOSKELETAL: No cyanosis, or edema. Left great toe ulcer BACK: Nontender without obvious deformity. No CVA tenderness. A/P Problem List: (1) Diabetes mellitus ICD Code: E11.9 - Type 2 diabetes mellitus without complications (2) Osteomyelitis of toe of left foot ICD Code: M86.9 - Osteomyelitis, unspecified (3) Foot osteomyelitis, right ICD Code: M86.9 - Osteomyelitis, unspecified Status: Acute (4) Diabetic ulcer of left great toe ICD Code: E11.621 - Type 2 diabetes mellitus with foot ulcer; L97.529 - Non- pressure chronic ulcer of other part of left foot with unspecified severity Status: Acute (5) Cellulitis of right foot ICD Code: L03.115 - Cellulitis of right lower limb Status: Acute (6) UTI (urinary tract infection) ICD Code: N39.0 - Urinary tract infection, site not specified Status: Acute Assessment and Plan 62-year-old man with Osteomyelitis of toe of left foot Foot osteomyelitis, right Diabetic ulcer left great toe Cellulitis right foot Foot x-ray noted and reviewed by me with finding concerning for osteomyelitis MRI of right and left foot with evidence of osteomyelitis Currently on IV Zosyn and vancomycin pending culture reports Appreciate input from infectious disease specialist Appreciate input from podiatry, however patient declined left great toe amputation as well as bone scan of right foot CTA runoff noted Urinary tract infection Continue with Zosyn pending urine culture CT abdomen noted Nephrolithiasis Mild right sided hydronephrosis Appreciate input from urology Patient to follow outpatient Diabetes mellitus 2 Noncompliant Hemoglobin A1c 11.6 Increase Levemir to 18 units every 12 hours, continue medium sliding scale insulin and fingerstick blood glucose monitoring Tobacco abuse Tobacco counseling cessation provided Continue nicotine patch Hypertension Continue with lisinopril 10 mg daily, Procardia 60 mg daily DVT prophylaxis: Bilateral SCDs Problem Qualifiers (1) Foot osteomyelitis, right: Qualified Codes: M86.9 - Osteomyelitis, unspecified (2) UTI (urinary tract infection): Qualified Codes: N39.0 - Urinary tract infection, site not specified; R31.9 - Hematuria, unspecified Chuck Dial MD March 01, 2018 08:44
[2018-03-01 08:47] LABS: CREATININE 0.69 MG/DL (0.60-1.30)
[2018-03-01] MEDS: VANCOMYCIN INJ 1,800 MG in SODIUM CHLORID 0.9% 500 ML INJ 500 ML IV SCH (16:57)
[2018-03-01] MEDS: traMADol HCL 50 MG TAB PO PRN (22:12)
[2018-03-01] MEDS: TEMAZEPAM 15 MG CAP PO PRN (23:08)
[2018-03-02] VITALS: BP 168/84; PULSE 78; RESP 20; TEMP 97.9; O2SAT 95
[2018-03-02] MEDS: PIPERACIL-TAZO 4.5 GM PREMIX 100 ML IV SCH ×2 (03:36→12:00)
[2018-03-02] MEDS: VANCOMYCIN INJ 1,800 MG in SODIUM CHLORID 0.9% 500 ML INJ 500 ML IV SCH (05:50)
[2018-03-02 07:34] VITALS: BP 158/78; PULSE 72; RESP 20; TEMP 98.3; O2SAT 96
[2018-03-02] MEDS: SODIUM CHLORIDE 0.9% FLUSH 10 ML FLUSH IV FLUSH SCH (09:00)
[2018-03-02] MEDS: REMOVE OLD NICOTINE PATCH T-DERMAL SCH (09:00)
[2018-03-02] MEDS: NICOTINE 14 MG/24 HR PATCH T-DERMAL SCH (09:00)
--- NOTE | 2018-03-02 09:22 | HHI.PR ---
Subjective Remarks Follow-up osteomyelitis/UTI February 28, 2018-patient seen and examined, no acute event overnight. Currently afebrile. March 01, 2018-patient seen and examined, afebrile. Patient refused the idea of left toe amputation as well as bone scan offered by podiatry yesterday. He stated, he will take his chance with IV antibiotic therapy. Denies any flank pain or symptoms of dysuria. March 02, 2018-patient seen and examined, currently afebrile. Case was discussed yesterday with ID and recommended Cipro 750 mg p.o. twice daily 2 months. No acute event overnight Objective Vitals Vital Signs Date Time Temp Pulse Resp B/P (MAP) Pulse Ox O2 Delivery O2 Flow Rate FiO2 03/02/18 07:34 98.3 72 20 158/78 (104) 96 03/02/18 00:00 97.9 78 20 168/84 (112) 95 03/01/18 20:00 97.8 82 20 142/80 (100) 97 03/01/18 16:44 18 03/01/18 16:00 97.1 88 17 135/70 (91) 97 03/01/18 12:00 98.9 85 17 130/67 (88) 96 I/O 03/01/18 03/01/18 03/01/18 03/02/18 03/02/18 03/02/18 07:00 15:00 23:00 07:00 15:00 23:00 Intake Total 500 ml 520 ml 960 ml 780 ml Output Total 900 ml 1200 ml 500 ml Balance 500 ml -380 ml -240 ml 280 ml Intake Oral 500 ml 960 ml 480 ml IV Total 520 ml 300 ml Output Urine Total 900 ml 1200 ml 500 ml # Voids 2 6 # Bowel Movements 1 Result Diagram: 02/27/18 0500 03/01/18 0340 Imaging Last Impressions Aorta w/Runoff CTA 02/28/18 0000 Signed Impressions: CONCLUSION: No significant aortoiliac inflow disease Mild distal SFA disease bilaterally, left worse than right. Mild right-sided hydronephrosis and hydroureter of undetermined etiology Foot MRI 02/27/18 0000 Signed Impressions: CONCLUSION: 1. Bone destruction and abnormal marrow enhancement involving the proximal and mid fourth and fifth metatarsals and cuboid. Also abnormal marrow edema and en hancement in the proximal third metatarsal, lateral cuneiform and tarsal navicu lar. Findings are most characteristic of osteomyelitis although a rapidly progr essive Charcot arthropathy could have a similar appearance. Abdomen/Pelvis CT 02/27/18 Signed Impressions: CONCLUSION: 1. Mild bladder wall thickening with some stranding of fat around the bladder most characteristic of a cystitis. 2. Dilatation of the right ureter and mild dilatation of the right renal colle cting system of uncertain etiology. No radiopaque calculi are seen in the right ureter. 3. Nonobstructing calculi lower pole both kidneys. Foot X-Ray 02/26/18 Signed Impressions: CONCLUSION: 1. Findings concerning for osteomyelitis involving the base of the fourth and fifth metatarsals as well as the cuboid, in the appropriate clinical setting. 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 Objective Remarks GENERAL: NAD SKIN: Warm and dry. Improving right foot erythema HEAD: Normocephalic. EYES: No scleral icterus. No injection or drainage. NECK: Supple, trachea midline. No JVD or lymphadenopathy. CARDIOVASCULAR: Regular rate and rhythm without murmurs, gallops, or rubs. RESPIRATORY: Breath sounds equal bilaterally. No accessory muscle use. GASTROINTESTINAL: Abdomen soft, non-tender, nondistended. MUSCULOSKELETAL: No cyanosis, or edema. Left great toe ulcer BACK: Nontender without obvious deformity. No CVA tenderness. Procedures None A/P Problem List: (1) Diabetes mellitus ICD Code: E11.9 - Type 2 diabetes mellitus without complications (2) Osteomyelitis of toe of left foot ICD Code: M86.9 - Osteomyelitis, unspecified (3) Foot osteomyelitis, right ICD Code: M86.9 - Osteomyelitis, unspecified Status: Acute (4) Diabetic ulcer of left great toe ICD Code: E11.621 - Type 2 diabetes mellitus with foot ulcer; L97.529 - Non- pressure chronic ulcer of other part of left foot with unspecified severity Status: Acute (5) Cellulitis of right foot ICD Code: L03.115 - Cellulitis of right lower limb Status: Acute (6) UTI (urinary tract infection) ICD Code: N39.0 - Urinary tract infection, site not specified Status: Acute Assessment and Plan 62-year-old man with Osteomyelitis of toe of left foot Foot osteomyelitis, right Diabetic ulcer left great toe Cellulitis right foot Foot x-ray noted and reviewed by me with finding concerning for osteomyelitis MRI of right and left foot with evidence of osteomyelitis Currently on IV Zosyn and vancomycin pending culture reports, will discharge patient on Cipro 750 p.o. twice daily 2 months Appreciate input from infectious disease specialist Appreciate input from podiatry, however patient declined left great toe amputation as well as bone scan of right foot CTA runoff noted Urinary tract infection/prostatitis Continue with Zosyn Urine culture positive for staph aureus therefore will discharge patient on Cipro 750mg p.o. twice daily CT abdomen noted Appreciate input from urology Nephrolithiasis Mild right sided hydronephrosis Appreciate input from urology Patient to follow outpatient Diabetes mellitus 2 Noncompliant Hemoglobin A1c 11.6 Continue Levemir to 18 units every 12 hours, medium sliding scale insulin and fingerstick blood glucose monitoring Tobacco abuse Tobacco counseling cessation provided Continue nicotine patch Hypertension Continue with lisinopril 10 mg daily, Procardia 60 mg daily DVT prophylaxis: Bilateral SCDs Problem Qualifiers (1) Foot osteomyelitis, right: Qualified Codes: M86.9 - Osteomyelitis, unspecified (2) UTI (urinary tract infection): Qualified Codes: N39.0 - Urinary tract infection, site not specified; R31.9 - Hematuria, unspecified Chuck Dial MD March 02, 2018 09:22
[2018-03-02] MEDS ORDERED: CIPR250T52 PO (09:27)
[2018-03-02] MEDS ORDERED: CIPR-9 PO (09:27)
[2018-03-02] MEDS ORDERED: NIFE60TA8 PO (09:27)
[2018-03-02] MEDS ORDERED: LISI10TA3 PO (09:27)
[2018-03-02] MEDS ORDERED: NOVOLOGSS SQ (09:27)
[2018-03-02] MEDS ORDERED: TAMS5CAP PO (09:27)
[2018-03-02] MEDS ORDERED: LEVEMIR SQ (09:27)
[2018-03-02] MEDS ORDERED: EZ SMIS (09:30)
[2018-03-02] MEDS ORDERED: INSU-118 (09:30)
[2018-03-02] MEDS ORDERED: INSU-126 (09:30)
[2018-03-02] MEDS ORDERED: GLUCTES27 (09:32)
--- NOTE | 2018-03-02 09:34 | HHI.DS ---
Discharge Summary Admission Date February 26, 2018 at 18:22 Discharge Date: March 02, 2018 Admitting Diagnosis Right foot osteomyelitis/cellulitis, UTI, hyperglycemia (1) Diabetes mellitus ICD Code: E11.9 - Type 2 diabetes mellitus without complications (2) Osteomyelitis of toe of left foot ICD Code: M86.9 - Osteomyelitis, unspecified (3) Foot osteomyelitis, right ICD Code: M86.9 - Osteomyelitis, unspecified Status: Acute (4) Diabetic ulcer of left great toe ICD Code: E11.621 - Type 2 diabetes mellitus with foot ulcer; L97.529 - Non- pressure chronic ulcer of other part of left foot with unspecified severity Status: Acute (5) Cellulitis of right foot ICD Code: L03.115 - Cellulitis of right lower limb Status: Acute (6) UTI (urinary tract infection) ICD Code: N39.0 - Urinary tract infection, site not specified Status: Acute Procedures None Brief History - From Admission 62-year-old man with history of diabetes type 2 and noncompliant with medical care presented to the ED for evaluation of right foot pain times several months duration, as well as redness and swelling right foot. Patient also states reports symptoms of dysuria however denies any pelvic pressure. Patient states he has not seek any medical intervention secondary to the fact that he has been taking care of his mom until passing. He has not seen any PCP. However patient was recently seen in the ED on February 04, 2018 and prescribed Bactrim for right foot cellulitis. He also endorses left great toe ulcer which he has been taken care of by himself. Denies any febrile episode CBC/BMP: 02/27/18 0500 03/01/18 0340 Significant Findings Laboratory Tests Test 02/28/18 05:03 02/28/18 13:45 03/01/18 03:40 Hemoglobin A1c 11.6 % (4.3-6.0) Urine Protein 30 mg/dL (NEG-TRACE) Urine Glucose (UA) 1000 OR GREATER mg/dL Vancomycin Level Trough 18.1 MCG/ML (5.0-10.0) Imaging Last Impressions Aorta w/Runoff CTA 02/28/18 Signed Impressions: CONCLUSION: No significant aortoiliac inflow disease Mild distal SFA disease bilaterally, left worse than right. Mild right-sided hydronephrosis and hydroureter of undetermined etiology Foot MRI 02/27/18 Signed Impressions: CONCLUSION: 1. Bone destruction and abnormal marrow enhancement involving the proximal and mid fourth and fifth metatarsals and cuboid. Also abnormal marrow edema and en hancement in the proximal third metatarsal, lateral cuneiform and tarsal navicu lar. Findings are most characteristic of osteomyelitis although a rapidly progr essive Charcot arthropathy could have a similar appearance. Abdomen/Pelvis CT 02/27/18 Signed Impressions: CONCLUSION: 1. Mild bladder wall thickening with some stranding of fat around the bladder most characteristic of a cystitis. 2. Dilatation of the right ureter and mild dilatation of the right renal colle cting system of uncertain etiology. No radiopaque calculi are seen in the right ureter. 3. Nonobstructing calculi lower pole both kidneys. Foot X-Ray 02/26/18 Signed Impressions: CONCLUSION: 1. Findings concerning for osteomyelitis involving the base of the fourth and fifth metatarsals as well as the cuboid, in the appropriate clinical setting. 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 PE at Discharge GENERAL: NAD SKIN: Warm and dry. Improving right foot erythema HEAD: Normocephalic. EYES: No scleral icterus. No injection or drainage. NECK: Supple, trachea midline. No JVD or lymphadenopathy. CARDIOVASCULAR: Regular rate and rhythm without murmurs, gallops, or rubs. RESPIRATORY: Breath sounds equal bilaterally. No accessory muscle use. GASTROINTESTINAL: Abdomen soft, non-tender, nondistended. MUSCULOSKELETAL: No cyanosis, or edema. Left great toe ulcer BACK: Nontender without obvious deformity. No CVA tenderness. Hospital Course While in hospital, patient was treated for: Osteomyelitis of toe of left foot Foot osteomyelitis, right Diabetic ulcer left great toe Cellulitis right foot Foot x-ray noted and reviewed by me with finding concerning for osteomyelitis MRI of right and left foot with evidence of osteomyelitis Treated with IV Zosyn and vancomycin and he will be discharged home Cipro 750 p.o. twice daily 2 months Appreciate input from infectious disease specialist Appreciate input from podiatry, however patient declined left great toe amputation as well as bone scan of right foot CTA runoff noted Urinary tract infection/prostatitis Patient was treated with Zosyn Urine culture positive for staph aureus therefore will discharge patient on Cipro 750mg p.o. twice daily CT abdomen noted Appreciate input from urology Nephrolithiasis Mild right sided hydronephrosis Appreciate input from urology Patient to follow outpatient Diabetes mellitus 2 Noncompliant Hemoglobin A1c 11.6 Patient was treated with Levemir which was increased to 18 units every 12 hours, medium sliding scale insulin and fingerstick blood glucose monitoring Tobacco abuse Tobacco counseling cessation provided Continue nicotine patch Hypertension He was treated with lisinopril 10 mg daily, Procardia 60 mg daily DVT prophylaxis: Bilateral SCDs Pt Condition on Discharge: Good Discharge Disposition: Disch w/ Home Health Serv Discharge Time: > 30 minutes Discharge Instructions DIET: Follow Instructions for: Diabetic Diet Activities you can perform: Non Weight Bearing Follow up Referrals: PCP Follow-up - 1 Week Wound Care Clinic - 1 Week @ [facility] with [facility] New Medications: [employer]One Insulin Syringes/ 31G X 5/16" 0.5 ml ([employer] Insulin Syringes/ 31G X 5/ 16" 0.5 ml) 31 Gauge X 5/16" Mis BOX .XX DIRECTED for Blood Sugar Management, #1 Ciprofloxacin (Cipro) 250 Mg Tab 250 MG PO BID for Infection, #120 TAB 0 Refills Ciprofloxacin (Cipro) 500 Mg Tab 500 MG PO BID for Infection, #120 TAB 0 Refills Ez Smart Diabetes Monitor (Ez Smart Diabetes Monitor) 1 Mis Mis KIT .XX DIRECTED for Blood Sugar Management, #1 0 Refills Glucose Blood Test Strips (Tamie Contour Next Blood Test Strips) 1 Amirah Amirah STRIP .XX DIRECTED, #1 Insulin Pen Needle/Easy Comfort 31G X 6mm (Easy Comfort Pen [place] 31G X 6 mm) 31 Gauge X 1/4" Mis BOX .XX DIRECTED for Blood Sugar Management, #1 0 Refills Insulin Aspart Inj (Novolog Inj) 100 Unit/Ml Inj 2-10 UNIT SQ ACHS SLIDING SCALE for Blood Sugar Management, #100 INJECTION 11 Refills Insulin Detemir Inj (Levemir Inj) 1,000 unit/ 10 ML Vial 18 UNITS SQ Q12HR for Blood Sugar Management, #100 INJECTION 11 Refills Do not mix with any other Insulin. Lisinopril (Lisinopril) 10 Mg Tab 10 MG PO DAILY for Blood Pressure Management, #30 TAB 11 Refills Nifedipine ER 24 HR (Nifedipine ER 24 HR) 60 Mg Tab 60 MG PO DAILY for Blood Pressure Management, #30 TAB 11 Refills Tamsulosin (Flomax) 0.4 Mg Cap 0.4 MG PO DAILY for Urinary Symptom Managemen, #30 CAP 3 Refills Chuck Dial MD March 02, 2018 09:34
[2018-03-02] MEDS: INSULIN ASPART SUPPLEMENTAL SCALE SQ SCH ×2 (09:49→12:00)
[2018-03-02] MEDS: INSULIN DETEMIR 100 UNITS/ML VIAL SQ SCH (09:50)
[2018-03-02] MEDS: LISINOPRIL 10 MG TAB PO SCH (09:51)
[2018-03-02] MEDS: TAMSULOSIN HCL 0.4 MG CAP PO SCH (09:51)
[2018-03-02] MEDS: DOCUSATE SODIUM 50 MG/SENNA 8.6 MG TAB PO SCH (09:51)
[2018-03-02] MEDS: NIFEdipine 60 MG SUSTAINED RELEASE TAB PO SCH (09:51)
[2018-03-02] MEDS: traMADol HCL 50 MG TAB PO PRN (09:55)
[2018-03-02 11:07] VITALS: BP 167/91; PULSE 74; RESP 20; TEMP 98; O2SAT 96
[2018-03-02 14:54] VITALS: BP 182/89; PULSE 74; RESP 18; TEMP 96.7
== END 2018-03-02 16:16 | disposition home health service (06) | DRG 638 ==
LOC: PHED 14:34 → PHEDA 18:22 → PH3A 22:44
PROVIDERS: ADMIT Hospitalist; ATTEND Hospitalist
DX: E11.69 Type 2 diabetes mellitus with other specified complication (principal); L03.115 Cellulitis of right lower limb; M86.8X7 Other osteomyelitis, ankle and foot; E11.610 Type 2 diabetes mellitus with diabetic neuropathic arthropathy; E11.621 Type 2 diabetes mellitus with foot ulcer; N13.6 Pyonephrosis; E11.65 Type 2 diabetes mellitus with hyperglycemia; L97.519 Non-pressure chronic ulcer of other part of right foot with unspecified severity; I10 Essential (primary) hypertension; B95.61 Methicillin susceptible Staphylococcus aureus infection as the cause of diseases classified elsewhere; L97.529 Non-pressure chronic ulcer of other part of left foot with unspecified severity; N41.9 Inflammatory disease of prostate, unspecified; F17.210 Nicotine dependence, cigarettes, uncomplicated; Z79.84 Long term (current) use of oral hypoglycemic drugs; Z91.14 Patient's other noncompliance with medication regimen; Z91.19 Patient's noncompliance with other medical treatment and regimen
CPT/HCPCS: 73630; 73720; 74177; 75635; 80048; 80053; 80202; 81001; 82565; 82948; 83036; 85025; 85652; 86140; 86403; 87040; 87086; 87147; 87186; 96365; 96375; A9579; J1815; J2543; J3370; J7030; J7040; J7050; Q9967

== ENCOUNTER 2018-06-27 12:41 | Inpatient (IN) ==
[2018-06-27] MEDS ORDERED: Vancomycin Inj 1,000 MG in Sodium Chlor 0.9% Inj 250 ML IV.SIG ONE (14:18)
--- NOTE | 2018-06-27 14:27 | ED ---
HPI General Chief complaint: Weakness Stated complaint: weakness/chills Time Seen by Provider: 06/27/18 14:06 Source: patient Mode of arrival: ambulatory Limitations: no limitations History of Present Illness HPI Narrative: The patient is a 63-year-old male who presents to the emergency department for fever, chills, generalized malaise. The patient states he had similar symptoms 3 months ago and was diagnosed with an infection in the left great toe, possible osteomyelitis. The patient was placed on IV antibiotics at that time and saw a railway yard assistant who recommended a bone biopsy. The patient did not want a bone biopsy and was subsequently discharged home. The patient states he was seen in the emergency department several weeks ago for progressing symptoms, was placed on Cipro and discharged home. However, the patient states his symptoms are progressing, the chills and sweats are new. He states that the railway yard assistant who last saw him wanted him to continue with IV antibiotics, however, he cannot recall the name of his railway yard assistant in [place], [place]. He is insulin-dependent diabetic. He denies any sore throat, cough, nausea, vomiting, diarrhea, abdominal pain, dysuria, or other myalgias/ arthralgias. Complaint: generalized weakness Onset (ago): day(s) Duration: progressively worsening Location: LLE Migration: none Severity: moderate Severity scale (1-10): 5 Relieving factors: none Exacerbating factors: none Context: history of similar Associated symptoms: denies other symptoms Related Data Home Medications Medication Instructions Recorded Confirmed aspirin [Aspir-81] 81 mg PO DAILY 06/27/18 06/27/18 ciprofloxacin HCl 750 mg PO Q12H 06/27/18 06/27/18 insulin aspart U-100 [Novolog U-] 5 unit SQ ACHS 06/27/18 06/27/18 multivitamin [Multiple Vitamins] 1 tab PO DAILY 06/27/18 06/27/18 Previous Rx's Medication Instructions Recorded lisinopril 10 mg PO DAILY #30 tab 06/05/18 Allergies Allergy/AdvReac Type Severity Reaction Status Date / Time No Known Allergies Allergy Verified 06/27/18 12:49 Review of Systems ROS: all other systems reviewed are negative [facility] Medical History Medical History Diabetes (Acute) Hx of gangrene (Acute) Hypertension (Acute) Kidney stone (Acute) Surgical History Surgical History History of ankle surgery (Acute) History of foot surgery (Acute) Social History Social History Substance History: No History of Abuse Second Hand Smoke Exposure: No Smoking Status: Light tobacco smoker Tobacco Type: Cigarettes How Often Do You Have a Drink Containing Alcohol: 2 to 4 times a month Recent Travel in [facility] within the Last 8 Weeks: No Recent Out of Country Travel within the Last 8 Weeks: No Exam Narrative Exam Narrative: GENERAL: Awake, alert, pleasant 63-year-old male who appears his stated age and is in no acute respiratory distress. SKIN: Focused skin assessment warm/dry. HEAD: Atraumatic. Normocephalic. EYES: Pupils equal and round. No scleral icterus. No injection or drainage. ENT: No nasal bleeding or discharge. Mucous membranes pink and moist. NECK: Trachea midline. No JVD. CARDIOVASCULAR: Regular rate and rhythm. No murmur appreciated. RESPIRATORY: No accessory muscle use. Clear to auscultation. Breath sounds equal bilaterally. GASTROINTESTINAL: Abdomen soft, non-tender, nondistended. Hepatic and splenic margins not palpable. MUSCULOSKELETAL: The patient has what appears to be a diabetic foot ulcer on the plantar surface of the left great toe that is approximately 2 cm in diameter. No active bleeding or drainage. NEUROLOGICAL: Awake and alert. No obvious cranial nerve deficits. Motor grossly within normal limits. Normal speech. PSYCHIATRIC: Appropriate mood and affect; insight and judgment normal. Course Initial Documented Vital Signs Temperature 98.9 F 06/27/18 12:43 Pulse Rate 99 H 06/27/18 12:43 Respiratory Rate 16 06/27/18 12:43 Blood Pressure 166/94 H 06/27/18 12:43 Pulse Oximetry 98 06/27/18 12:43 Last Documented Vital Signs Temperature 98.9 F 06/27/18 12:43 Pulse Rate 87 06/27/18 19:40 Respiratory Rate 18 06/27/18 19:40 Blood Pressure 150/86 H 06/27/18 19:40 Pulse Oximetry 99 06/27/18 19:40 Sign Out Sign Out Data: Patient Sign Out occurred on 06/27/18 at 15:23. Patient's care was discussed, and care was transferred from Ahmet Vaughn MD to Benjamin Burdick MD. Sign Out Comment: 63-year-old diabetic with a history of infected left foot ulcer and possible osteomyelitis who presents with progressing weakness, fever, chills, and no other source of infection. CRP, sed rate, CBC, lactic acid, and MRI are ordered for possible osteomyelitis. If positive for ostium myelitis patient will require admission, IV antibiotics, possible podiatry evaluation for debridement. Last updated by Ahmet Vaughn MD at 06/27/18 14:27 Post-Handoff Eval: Patient was initially evaluated by the previous provider and signed out to me at the beginning of my shift at approximately 3:00 PM pending labs, MRI of the left foot, and disposition. See his note for further details. Labs are remarkable for slight leukocytosis. MRI of the left foot shows signs of osteomyelitis in the left great toe. The patient was given a dose of IV vancomycin by the previous provider. He was made aware of all findings and will be admitted for further IV antibiotic therapy and podiatry consultation. Case discussed with hospitalist Dr. Adorno who will admit the patient to her service. Medical Decision Making MDM Narrative Medical decision making narrative: IV was established, labs were drawn and sent , and the patient was placed on cardiac telemetry monitoring and continuous pulse oximetry monitoring. CRP, sed rate, lactic acid, CBC, influenza, UA, and chest x-ray were obtained. MRI of the left foot with and without contrast was obtained to evaluate for osteomyelitis. The patient was going to try to contact his railway yard assistant to obtain a name. The patient was signed out to the oncoming physician at 3 PM. Medical Screen Exam Complete: Yes Emergency Medical Condition: Yes Differential Diagnosis Differential Diagnosis: Differential diagnosis includes osteomyelitis, bacteremia, septicemia, sepsis, UTI, pneumonia, influenza, acute kidney injury, viral syndrome, dehydration. Lab Data Result diagrams: 06/27/18 14:40 06/27/18 14:40 Lab Results 06/27/18 06/27/18 06/27/18 Range/Units 14:40 14:40 14:40 CBC w Diff Auto diff final WBC 11.4 H (4.0-11.0) th/mm3 RBC 5.11 (4.50-5.90) mil/mm3 Hgb 15.1 (13.0-17.0) gm/dL Hct 44.5 (39.0-51.0) % MCV 87.1 (80.0-100.0) fL MCH 29.6 (27.0-34.0) pg MCHC 34.0 (32.0-36.0) % RDW 13.6 (11.6-17.2) % Plt Count 352 (150-450) th/mm3 MPV 8.3 (7.0-11.0) fL Neut % (Auto) 74.6 H (16.0-70.0) % Lymph % (Auto) 18.6 (9.0-44.0) % Rooks % (Auto) 5.6 (0.0-8.0) % Eos % (Auto) 0.6 (0.0-4.0) % Baso % (Auto) 0.6 (0.0-2.0) % Neut # (Auto) 8.5 H (1.8-7.7) th/mm3 Lymph # (Auto) 2.1 (1.0-4.8) th/mm3 Rooks # (Auto) 0.6 (0.0-0.9) th/mm3 Eos # (Auto) 0.1 (0.0-0.4) th/mm3 Baso # (Auto) 0.1 (0.0-0.2) th/mm3 WBC Differential . Differential Comment . ESR (0-20) mm/hr Sodium 132 L (136-145) meq/L Potassium 4.0 (3.5-5.1) meq/L Chloride 99 (98-107) meq/L Carbon Dioxide 25.6 (21.0-32.0) meq/L Anion Gap 7 (5-15) meq/L BUN 9 (7-18) mg/dL Creatinine 0.78 (0.60-1.30) mg/dL Estimated GFR Greater than 89 (>89) mL/min Random Glucose 158 H (74-106) mg/dL Lactic Acid 1.5 (0.4-2.0) mmol/L Calcium 8.6 (8.5-10.1) mg/dL Total Bilirubin 0.7 (0.2-1.0) mg/dL AST 16 (15-37) U/L ALT 22 (12-78) U/L Alkaline Phosphatase 51 (45-117) U/L C-Reactive Protein Less than 0.29 (0.00-0.30) mg/dL Total Protein 7.0 (6.4-8.2) g/dL Albumin 3.9 (3.4-5.0) g/dL Urine Color (Yellw/Straw) Urine Clarity (Clear) Urine pH (5.0-8.5) Ur Specific Malcolm (1.002-1.035) Urine Protein (Neg-Trace) mg/dL Urine Glucose (UA) (Negative) mg/dL Urine Ketones (Negative) mg/dL Urine Occult Blood (Negative) Urine Nitrate (Negative) Urine Bilirubin (Negative) Urine Urobilinogen (Less than 2) mg/dL Ur Leukocyte Esterase (Negative) Urine WBC (0-5) /hpf Micro UA Comment Ur Microscopic Review Urine Culture Comments 06/27/18 06/27/18 Range/Units 14:40 15:05 CBC w Diff WBC (4.0-11.0) th/mm3 RBC (4.50-5.90) mil/mm3 Hgb (13.0-17.0) gm/dL Hct (39.0-51.0) % MCV (80.0-100.0) fL MCH (27.0-34.0) pg MCHC (32.0-36.0) % RDW (11.6-17.2) % Plt Count (150-450) th/mm3 MPV (7.0-11.0) fL Neut % (Auto) (16.0-70.0) % Lymph % (Auto) (9.0-44.0) % Rooks % (Auto) (0.0-8.0) % Eos % (Auto) (0.0-4.0) % Baso % (Auto) (0.0-2.0) % Neut # (Auto) (1.8-7.7) th/mm3 Lymph # (Auto) (1.0-4.8) th/mm3 Rooks # (Auto) (0.0-0.9) th/mm3 Eos # (Auto) (0.0-0.4) th/mm3 Baso # (Auto) (0.0-0.2) th/mm3 WBC Differential Differential Comment ESR 3 (0-20) mm/hr Sodium (136-145) meq/L Potassium (3.5-5.1) meq/L Chloride (98-107) meq/L Carbon Dioxide (21.0-32.0) meq/L Anion Gap (5-15) meq/L BUN (7-18) mg/dL Creatinine (0.60-1.30) mg/dL Estimated GFR (>89) mL/min Random Glucose (74-106) mg/dL Lactic Acid (0.4-2.0) mmol/L Calcium (8.5-10.1) mg/dL Total Bilirubin (0.2-1.0) mg/dL AST (15-37) U/L ALT (12-78) U/L Alkaline Phosphatase (45-117) U/L C-Reactive Protein (0.00-0.30) mg/dL Total Protein (6.4-8.2) g/dL Albumin (3.4-5.0) g/dL Urine Color Yellow (Yellw/Straw) Urine Clarity Clear (Clear) Urine pH 6.5 (5.0-8.5) Ur Specific Malcolm Less/equal 1.005 (1.002-1.035) Urine Protein Trace (Neg-Trace) mg/dL Urine Glucose (UA) 100 H (Negative) mg/dL Urine Ketones Negative (Negative) mg/dL Urine Occult Blood Negative (Negative) Urine Nitrate Negative (Negative) Urine Bilirubin Negative (Negative) Urine Urobilinogen 0.2 (Less than 2) mg/dL Ur Leukocyte Esterase Negative (Negative) Urine WBC 0-5 (0-5) /hpf Micro UA Comment Culture not ind Ur Microscopic Review Microscopic reviewed Urine Culture Comments Culture not ind Imaging Data Radiologist's impression: Chest X-Ray 06/27/18 14:18 CONCLUSION: Negative examination. Foot MRI 06/27/18 14:18 CONCLUSION: 1. Marrow edema and enhancement in the great toe similar to prior study most characteristic of osteomyelitis. Discharge Plan Discharge Disposition Patient Disposition: 30 Still Patient Discharge Condition Condition: Stable Discharge Details Diagnosis: Osteomyelitis Physicians Team ED Provider: Benjamin Burdick Primary Care Provider: Primary Care Kandi,Jessica Attending Provider: Anayeli Adorno Other Providers: Corinne Oconnor Discharge Interventions Interventions: Vital Signs Last Done: 06/27/18 19:40 Status ED Status: Admitted Patient
[2018-06-27 14:54] LABS: Baso # (Auto) 0.1 th/mm3 (0.0-0.2); Baso % (Auto) 0.6 % (0.0-2.0); Eos # (Auto) 0.1 th/mm3 (0.0-0.4); Eos % (Auto) 0.6 % (0.0-4.0); Hematocrit 44.5 % (39.0-51.0); Hemoglobin 15.1 gm/dL (13.0-17.0); Lymph # (Auto) 2.1 th/mm3 (1.0-4.8); Lymph % (Auto) 18.6 % (9.0-44.0); Mean Corpuscular Hemoglobin 29.6 pg (27.0-34.0); Mean Corpuscular Volume 87.1 fL (80.0-100.0); Mean Platelet Volume 8.3 fL (7.0-11.0); Mono # (Auto) 0.6 th/mm3 (0.0-0.9); Mono % (Auto) 5.6 % (0.0-8.0); Neut # (Auto) 8.5 th/mm3 (1.8-7.7); Neut % (Auto) 74.6 % (16.0-70.0); Platelet Count 352 th/mm3 (150-450); Red Blood Count 5.11 mil/mm3 (4.50-5.90); Red Cell Distribution Width 13.6 % (11.6-17.2); White Blood Count 11.4 th/mm3 (4.0-11.0)
--- NOTE | 2018-06-27 14:57 | XR ---
EXAM DATE: 06/27/2018 2:52 PM EDT AGE/SEX: 63 years / Male INDICATIONS: Fever and chills. CLINICAL DATA: This is the patient's initial encounter. Patient reports that signs and symptoms have been present for 2 days and indicates a pain score of 1/10. MEDICAL/SURGICAL HISTORY: . Diabetes mellitus type II. Hypertension. . Ankle and foot. COMPARISON: [facility], CHEST PA & LAT, 04/28/2013. . FINDINGS: A single AP view of the chest demonstrates the lungs to be symmetrically aerated without evidence of mass, infiltrate or effusion. The cardiomediastinal contours are unremarkable. Osseous structures a re intact. CONCLUSION: Negative examination. Electronically signed by: Jerel Day MD 06/27/2018 2:55 PM EDT
[2018-06-27] MEDS ORDERED: Sodium Chlor 0.9% Inj 500 ML IV.SIG SCH (15:00)
[2018-06-27 15:03] LABS: Chloride 99 meq/L (98-107); Sodium 132 meq/L (136-145)
[2018-06-27 15:06] LABS: Calcium 8.6 mg/dL (8.5-10.1)
[2018-06-27 15:07] LABS: Albumin 3.9 g/dL (3.4-5.0); Anion Gap 7 meq/L (5-15); Blood Urea Nitrogen 9 mg/dL (7-18); Carbon Dioxide 25.6 meq/L (21.0-32.0); Glucose,Random 158 mg/dL (74-106)
[2018-06-27 15:10] LABS: Alanine Aminotransferase 22 U/L (12-78); Aspartate Aminotransferase 16 U/L (15-37); Glomerular Filtration Rate Greater Than 89 mL/min (>89)
[2018-06-27 15:12] LABS: Alkaline Phosphatase 51 U/L (45-117)
[2018-06-27 15:19] LABS: Bilirubin,Urine Negative (Negative); Clarity,Urine Clear (Clear); Color,Urine Yellow (Yellw/Straw); Glucose,Urine (UA) 100 mg/dL (Negative); Leukocyte Esterase,Urine Negative (Negative); Nitrite,Urine Negative (Negative); PH,Urine 6.5 (5.0-8.5); Specific Gravity,Urine Less/Equal 1.005 (1.002-1.035); Urobilinogen,Urine 0.2 mg/dL (Less than 2)
[2018-06-27 15:26] LABS: WBC,Urine 0-5 /hpf (0-5)
[2018-06-27] MEDS ORDERED: Gadobutrol PF 10 MMOL/10 ML Vial (for RAD) IV.SIG ONE (16:21)
--- NOTE | 2018-06-27 18:30 | MR ---
EXAM DATE: 06/27/2018 5:30 PM EDT AGE/SEX: 63 years / Male INDICATIONS: Osteomyelitis. CLINICAL DATA: This is the patient's initial encounter. Patient reports that signs and symptoms have been present for 1 day and indicates a pain score of 0/10. MEDICAL/SURGICAL HISTORY: Hypertension. Diabetes mellitus type II. . Leg repair. COMPARISON: [facility], MRI FOOT LEFT W & W/O CONTRAST, 02/27/2018. . TECHNIQUE: Multiplanar, multisequence MRI examination was performed without contrast and after th e intravenous administration of 10 ml Gadavist (gadobutrol) single exam dose. FINDINGS: Comparison is February 27. There is marrow edema in the distal portion of the proximal phalanx and distal phalanx of the great toe. There is some marrow enhancement postcontrast most characteristic of osteom yelitis. The findings are similar to February 27 examination. No other foci of abnormal marrow signal identified. There is some edema in the subcutaneous tissues o f the great toe. CONCLUSION: 1. Marrow edema and enhancement in the great toe similar to prior study most characteristic of osteo myelitis. Electronically signed by: Zachary Broderick MD 06/27/2018 6:29 PM EDT
[2018-06-27] MEDS ORDERED: Vancomycin Consult Pharmacy OTHER PRN (19:33)
[2018-06-27] MEDS ORDERED: Acetaminophen 325 MG Tablet PO PRN (19:34)
[2018-06-27] MEDS ORDERED: Bisacodyl 10 MG Supp RECTAL PRN (19:34)
[2018-06-27] MEDS: Sod Chloride 0.9% Inj 1,000 ML IV.CONT SCH (20:22)
[2018-06-27] MEDS: Senna/Docusate Sodium 8.6/50 MG Tablet PO SCH (21:22)
[2018-06-27] MEDS: Vancomycin Inj 1,500 MG in Sodium Chlor 0.9% Inj 500 ML IV.SIG SCH (22:58)
[2018-06-28] MEDS ORDERED: Dextrose 50% in Water 50 ML Vial IV.PUSH PRN (05:51)
[2018-06-28] MEDS: Sod Chloride 0.9% Inj 1,000 ML IV.CONT SCH ×2 (05:52→17:42)
[2018-06-28] MEDS: Vancomycin Inj 1,500 MG in Sodium Chlor 0.9% Inj 500 ML IV.SIG SCH ×3 (05:52→23:31)
[2018-06-28] MEDS: Insulin NovoLOG Aspart Correctional Sugar Inj SQ SCH ×4 (08:14→20:57)
[2018-06-28] MEDS: Senna/Docusate Sodium 8.6/50 MG Tablet PO SCH ×2 (08:15→20:04)
[2018-06-28] MEDS: Heparin - SQ 10,000 UNITS/ML Vial SQ SCH ×2 (08:15→20:03)
[2018-06-28 08:46] LABS: Baso # (Auto) 0.1 th/mm3 (0.0-0.2); Baso % (Auto) 0.9 % (0.0-2.0); Eos # (Auto) 0.2 th/mm3 (0.0-0.4); Eos % (Auto) 2.5 % (0.0-4.0); Hemoglobin 13.6 gm/dL (13.0-17.0); Lymph % (Auto) 24.7 % (9.0-44.0); Mean Corpuscular HGB Conc 34.8 % (32.0-36.0); Mean Corpuscular Hemoglobin 30.5 pg (27.0-34.0); Mean Corpuscular Volume 87.8 fL (80.0-100.0); Mean Platelet Volume 8.8 fL (7.0-11.0); Mono # (Auto) 0.5 th/mm3 (0.0-0.9); Mono % (Auto) 6.2 % (0.0-8.0); Neut # (Auto) 5.3 th/mm3 (1.8-7.7); Neut % (Auto) 65.7 % (16.0-70.0); Platelet Count 253 th/mm3 (150-450); Red Blood Count 4.44 mil/mm3 (4.50-5.90); Red Cell Distribution Width 13.6 % (11.6-17.2); White Blood Count 8.1 th/mm3 (4.0-11.0)
[2018-06-28 08:59] LABS: Chloride 103 meq/L (98-107); Sodium 135 meq/L (136-145)
[2018-06-28] MEDS ORDERED: Lisinopril 10 MG Tablet PO SCH (09:00)
[2018-06-28 09:02] LABS: Albumin 3.4 g/dL (3.4-5.0); Anion Gap 9 meq/L (5-15); Calcium 7.9 mg/dL (8.5-10.1); Carbon Dioxide 23.4 meq/L (21.0-32.0); Glucose,Random 167 mg/dL (74-106)
[2018-06-28 09:03] LABS: Blood Urea Nitrogen 7 mg/dL (7-18)
[2018-06-28 09:05] LABS: Alanine Aminotransferase 17 U/L (12-78); Aspartate Aminotransferase 13 U/L (15-37)
[2018-06-28 09:06] LABS: Glomerular Filtration Rate Greater Than 89 mL/min (>89)
[2018-06-28 09:07] LABS: Total Protein 6.1 g/dL (6.4-8.2)
[2018-06-28 09:08] LABS: Alkaline Phosphatase 45 U/L (45-117)
--- NOTE | 2018-06-28 11:51 | P.HP ---
History of Present Illness Primary Care Physician: No Primary Care Physician Chief Complaint: Chills History of Present Illness: This is a 63-year-old male with a history of diabetes mellitus, hypertension and left great toe infection. Patient presents to the emergency department because of chills, dizziness and weakness for 1 day. Patient with a history of infection of the left great toe possibly osteomyelitis first diagnosed 3 months ago. Review of records shows he was treated with IV Zosyn and discharged home on Cipro for 2 months. He declined bone biopsy. 3 weeks ago he was seen again in the emergency department and was given IV DALVANCE and discharged. He was also restarted on Cipro by his primary care. Because of recurrent symptoms yesterday similar to when he was first diagnosed with diabetic foot infection he presented to the emergency room for further evaluation and treatment. Denies fever, headache, nausea, cough, abdominal pain, UTI symptoms and diarrhea. Chest x-ray interpreted by me with no acute cardiopulmonary disease. Urinalysis unremarkable. Discussed with podiatry, he recommends long-term IV antibiotic. At this time patient agrees to proceed with biopsy. All other systems reviewed negative Inpatient Certification: I certify that the inpatient services were ordered in accordance with Medicare regulations governing the order. This includes certification that hospital inpatient services are reasonable and necessary and in the case of services not specified as inpatient-only under 42 CFR 419.22(n), that they are appropriately provided as inpatient services in accordance to with the 2-midnight benchmark under 43 CFR 412.3(e) Estimated Total Length of Stay (Days): 2 Plans for Post Hospital Care: Not yet determined Review of Systems All other systems reviewed negative except as stated [facility] - History History Provided By: Patient - Medical History Medical History: Medical History (Last Reviewed 06/28/18 @ 11:57 by Alber Mayer MD) Diabetes Hx of gangrene Hypertension Kidney stone - Surgical History Surgical History: Surgical History (Last Reviewed 06/28/18 @ 11:57 by Alber Mayer MD) History of ankle surgery History of foot surgery - Family History Family History: Family History (Last Updated 06/28/18 @ 11:57 by Alber Mayer MD) Other No pertinent family history - Tobacco History Second Hand Smoke Exposure: Yes Tobacco Use In Past 30 Days: Yes Smoking Status: Current every day smoker Tobacco Type: Cigarettes - Alcohol History How Often Do You Have a Drink Containing Alcohol: 2 to 3 times a week - Substance Use History Substance History: No History of Abuse - Travel History Recent Travel in the [place] Within the Last 8 Weeks: No Recent Travel Out of the Country Within the Last 8 Weeks: No - Immunization History Tetanus Immunization: >5 Years Hx Influenza Vaccine This Season: No Medications and Allergies Active Medications: Active Medications Acetaminophen (Tylenol) 650 mg PO Q4H PRN PRN Reason: Temp > 100.4 Al Hydroxide/Mg Hydroxide (Milk Of Magnesia Liq) 30 ml PO Q12H PRN PRN Reason: Mild Constipation Bisacodyl (Dulcolax Supp) 10 mg RECTAL DAILY PRN PRN Reason: SEVERE CONSITIPATION Clonidine HCl (Catapres) 0.1 mg PO Q6H PRN PRN Reason: SEE LABEL COMMENTS Dextrose (D50w Vial) 50 ml IV.PUSH UNSCH PRN PRN Reason: PER HYPOGLYCEMIA PROTOCOL Enalaprilat (Vasotec Inj) 1.25 mg IV.PUSH Q6H PRN PRN Reason: SEE LABEL COMMENTS Glucagon (Glucagon Inj) 1 mg OTHER PRN PRN PRN Reason: for Hypoglycemia Protocol Heparin Sodium (Porcine) (Heparin Inj) 5,000 units SQ Q12H [facility] Last Admin: 06/28/18 08:15 Dose: 5,000 units Sodium Chloride (Ns Inj) 500 mls @ 0 mls/hr IV.SIG BOLUS [facility] Last Infusion: 06/27/18 18:01 Dose: Infused Cefepime HCl 1,000 mg/ Sodium (Chloride) 100 mls @ 200 mls/hr IV.SIG Q12H [facility] Last Infusion: 06/28/18 08:50 Dose: Infused Sodium Chloride (Ns Inj) 1,000 mls @ 100 mls/hr IV.CONT .Q10H [facility] Last Infusion: 06/28/18 06:41 Dose: 100 mls/hr Vancomycin HCl 1,500 mg/ (Sodium Chloride) 515 mls @ 250 mls/hr IV.SIG Q8H [facility] Last Infusion: 06/28/18 08:00 Dose: Infused Insulin Aspart (Novolog Insulin Correctional Sugar Inj) 0 unit SQ ACHS [facility]; Protocol Last Admin: 06/28/18 08:14 Dose: 1 unit Lactulose (Lactulose Liq) 30 ml PO DAILY PRN PRN Reason: SEVERE CONSITIPATION Lisinopril (Prinivil) 10 mg PO DAILY [facility] Miscellaneous Information ([facility] Ordered Lab Info) 0 each OTHER ONCE ONE Stop: 06/28/18 13:46 Multivitamins (Theragran) 1 tab PO DAILY [facility] Last Admin: 06/28/18 08:15 Dose: 1 tab Ondansetron HCl (Zofran Inj) 4 mg IV.PUSH Q6H PRN PRN Reason: NAUSEA OR VOMITING Pharmacy Profile Note (Vancomycin Consult Pharmacy) 1 each OTHER UNSCH PRN PRN Reason: Pharmacy to dose Senna/Docusate Sodium (Arielle-Colace) 1 tab PO BID [facility] Last Admin: 06/28/18 08:15 Dose: Not Given Sennosides (Senokot) 17.2 mg PO Q12H PRN PRN Reason: Moderate Constipation Allergies Allergy/AdvReac Type Severity Reaction Status Date / Time No Known Allergies Allergy Verified 06/27/18 12:49 Home Medications Medication Instructions Recorded Confirmed Type aspirin [Aspir-81] 81 mg PO DAILY 06/27/18 06/27/18 History ciprofloxacin HCl 750 mg PO Q12H 06/27/18 06/27/18 History insulin aspart U-100 [Novolog U-] 5 unit SQ ACHS 06/27/18 06/27/18 History multivitamin [Multiple Vitamins] 1 tab PO DAILY 06/27/18 06/27/18 History Exam Vital signs: Vital Signs 06/27/18 12:43 06/27/18 14:50 06/27/18 16:55 Temperature 98.9 F Pulse Rate 99 H 93 H 90 Respiratory Rate 16 16 18 Blood Pressure 166/94 H 134/70 149/92 H Pulse Oximetry 98 96 99 06/27/18 19:40 06/27/18 20:00 06/28/18 00:00 Temperature 97.0 F L 97.9 F Pulse Rate 87 89 91 H Respiratory Rate 18 18 18 Blood Pressure 150/86 H 156/106 H 156/91 H Pulse Oximetry 99 99 99 06/28/18 04:00 06/28/18 08:00 Temperature 97.8 F 97.2 F L Pulse Rate 93 H 83 Respiratory Rate 18 20 Blood Pressure 150/88 H 171/83 H Pulse Oximetry 99 97 Intake & Output 06/27/18 06/28/18 06/28/18 18:59 06:59 18:59 Intake Total 750 / 750 615 / 615 735 / 735 Output Total 700 / 700 Balance 750 / 750 -85 / -85 735 / 735 Weight 102.9 kg 102.3 kg Intake: IV 750 / 750 615 / 615 615 / 615 Maxipime Inj 1,000 MG In NS Inj 100 / 100 100 / 100 100 ML @ 200 mls/hr IV.SIG Q12H [facility] Rx#:[id number] NS Inj 500 ML @ Wide Open IV. 500 / 500 SIG BOLUS [facility] Rx#:[id number] Vancomycin Inj 1,000 MG In NS 250 / 250 Inj 250 ML @ 250 mls/hr IV.SIG ONCE ONE Rx#:[id number] Vancomycin Inj 1,500 MG In NS 515 / 515 515 / 515 Inj 500 ML @ 250 mls/hr IV.SIG Q8H [facility] Rx#:[id number] Oral 120 / 120 Output: Urine 700 / 700 Other: # Voids 1 Narrative: GENERAL: Well-developed, well-nourished in no distress SKIN: Warm and dry. Varicosities HEAD: Atraumatic. Normocephalic. EYES: Pupils equal and round. No scleral icterus. No injection or drainage. ENT: No nasal bleeding or discharge. Mucous membranes pink and moist. NECK: Trachea midline. No JVD. CARDIOVASCULAR: Regular rate and rhythm. RESPIRATORY: No accessory muscle use. Clear to auscultation. Breath sounds equal bilaterally. GASTROINTESTINAL: Abdomen soft, non-tender, nondistended. MUSCULOSKELETAL: Extremities without clubbing, cyanosis, or edema. No obvious deformities. Left great toe ulcer plantar surface with no drainage. NEUROLOGICAL: Awake and alert. No obvious cranial nerve deficits. Motor grossly within normal limits. Five out of 5 muscle strength in the arms and legs. Normal speech. PSYCHIATRIC: Appropriate mood and affect; insight and judgment normal. Results - Labs CBC & Chem 7: 06/28/18 08:10 06/28/18 08:10 Labs: Laboratory Results - last 24 hr 06/27/18 06/27/18 06/27/18 14:40 14:40 14:40 CBC w Diff Auto diff final WBC 11.4 H RBC 5.11 Hgb 15.1 Hct 44.5 MCV 87.1 MCH 29.6 MCHC 34.0 RDW 13.6 Plt Count 352 MPV 8.3 Neut % (Auto) 74.6 H Lymph % (Auto) 18.6 [place] % (Auto) 5.6 Eos % (Auto) 0.6 Baso % (Auto) 0.6 Neut # (Auto) 8.5 H Lymph # (Auto) 2.1 [place] # (Auto) 0.6 Eos # (Auto) 0.1 Baso # (Auto) 0.1 WBC Differential . Differential Comment . ESR Sodium 132 L Potassium 4.0 Chloride 99 Carbon Dioxide 25.6 Anion Gap 7 BUN 9 Creatinine 0.78 Estimated GFR Greater than 89 POC Glucose Random Glucose 158 H Lactic Acid 1.5 Calcium 8.6 Total Bilirubin 0.7 AST 16 ALT 22 Alkaline Phosphatase 51 C-Reactive Protein Less than 0.29 Total Protein 7.0 Albumin 3.9 Urine Color Urine Clarity Urine pH Ur Specific [place] Urine Protein Urine Glucose (UA) Urine Ketones Urine Occult Blood Urine Nitrate Urine Bilirubin Urine Urobilinogen Ur Leukocyte Esterase Urine WBC Micro UA Comment Ur Microscopic Review Urine Culture Comments 06/27/18 06/27/18 06/28/18 14:40 15:05 07:41 CBC w Diff WBC RBC Hgb Hct MCV MCH MCHC RDW Plt Count MPV Neut % (Auto) Lymph % (Auto) [place] % (Auto) Eos % (Auto) Baso % (Auto) Neut # (Auto) Lymph # (Auto) [place] # (Auto) Eos # (Auto) Baso # (Auto) WBC Differential Differential Comment ESR 3 Sodium Potassium Chloride Carbon Dioxide Anion Gap BUN Creatinine Estimated GFR POC Glucose 157 H Random Glucose Lactic Acid Calcium Total Bilirubin AST ALT Alkaline Phosphatase C-Reactive Protein Total Protein Albumin Urine Color Yellow Urine Clarity Clear Urine pH 6.5 Ur Specific [place] Less/equal 1.005 Urine Protein Trace Urine Glucose (UA) 100 H Urine Ketones Negative Urine Occult Blood Negative Urine Nitrate Negative Urine Bilirubin Negative Urine Urobilinogen 0.2 Ur Leukocyte Esterase Negative Urine WBC 0-5 Micro UA Comment Culture not ind Ur Microscopic Review Microscopic reviewed Urine Culture Comments Culture not ind 06/28/18 06/28/18 06/28/18 08:10 08:10 11:36 CBC w Diff Auto diff final WBC 8.1 RBC 4.44 L Hgb 13.6 Hct 39.0 MCV 87.8 MCH 30.5 MCHC 34.8 RDW 13.6 Plt Count 253 MPV 8.8 Neut % (Auto) 65.7 Lymph % (Auto) 24.7 [place] % (Auto) 6.2 Eos % (Auto) 2.5 Baso % (Auto) 0.9 Neut # (Auto) 5.3 Lymph # (Auto) 2.0 [place] # (Auto) 0.5 Eos # (Auto) 0.2 Baso # (Auto) 0.1 WBC Differential . Differential Comment . ESR Sodium 135 L Potassium 4.0 Chloride 103 Carbon Dioxide 23.4 Anion Gap 9 BUN 7 Creatinine 0.60 Estimated GFR Greater than 89 POC Glucose 248 H Random Glucose 167 H Lactic Acid Calcium 7.9 L Total Bilirubin 0.8 AST 13 L ALT 17 Alkaline Phosphatase 45 C-Reactive Protein Total Protein 6.1 L D Albumin 3.4 Urine Color Urine Clarity Urine pH Ur Specific [place] Urine Protein Urine Glucose (UA) Urine Ketones Urine Occult Blood Urine Nitrate Urine Bilirubin Urine Urobilinogen Ur Leukocyte Esterase Urine WBC Micro UA Comment Ur Microscopic Review Urine Culture Comments - Imaging Impressions Chest X-Ray 06/27/18 14:18 CONCLUSION: Negative examination. Foot MRI 06/27/18 14:18 CONCLUSION: 1. Marrow edema and enhancement in the great toe similar to prior study most characteristic of osteomyelitis. Caprini VTE Risk Assessment Caprini VTE Risk Assessment: Moderate/High Risk (score >= 2) VTE Mechanical Exception: LE injury/wound Caprini Risk Assessment Model: Point Value = 1 Point Value = 2 Point Value = 3 Point Value = 5 Age 41-60 Minor surgery BMI > 25 kg/m2 Swollen legs Varicose veins or History of unexplained or recurrent spontaneous Oral contraceptives or hormone replacement Sepsis (< 1 month) Serious lung disease, including pneumonia (< 1 month) Abnormal pulmonary function Acute myocardial infarction Congestive heart failure (< 1 month) History of inflammatory bowel disease Medical patient at bed rest Age 61-74 Arthroscopic surgery Major open surgery (> 45 min) Laparoscopic surgery (> 45 min) Malignancy Confined to bed (> 72 hours) Immobilizing plaster cast Central venous access Age >= 75 History of VTE Family history of VTE Factor V Leiden Prothrombin [id number] Lupus anticoagulant Anticardiolipin antibodies Elevated serum homocysteine Heparin-induced thrombocytopenia Other congenital or acquired thrombophilia Stroke (< 1 month) Elective arthroplasty Hip, pelvis, or leg fracture Acute spinal cord injury (< 1 month) Prophylaxis Regimen: Total Risk Factor Score Risk Level Prophylaxis Regimen 0-1 Low Early ambulation 2 Moderate Order ONE of the following: *Sequential Compression Device (SCD) *Heparin 5000 units SQ BID 3-4 Higher Order ONE of the following medications: *Heparin 5000 units SQ TID *Enoxaparin/Lovenox 40 mg SQ daily (WT < 150 kg, CrCl > 30 mL/min) *Enoxaparin/Lovenox 30 mg SQ daily (WT < 150 kg, CrCl > 10-29 mL/min) *Enoxaparin/Lovenox 30 mg SQ BID (WT < 150 kg, CrCl > 30 mL/min) AND/OR *Sequential Compression Device (SCD) 5 or more Highest Order ONE of the following medications: *Heparin 5000 units SQ TID (Preferred with Epidurals) *Enoxaparin/Lovenox 40 mg SQ daily (WT < 150 kg, CrCl > 30 mL/min) *Enoxaparin/Lovenox 30 mg SQ daily (WT < 150 kg, CrCl > 10-29 mL/min) *Enoxaparin/Lovenox 30 mg SQ BID (WT < 150 kg, CrCl > 30 mL/min) AND *Sequential Compression Device (SCD) Assessment and Plan - Plan This is a 63-year-old male with a history of diabetes mellitus, hypertension and left great toe infection. Patient presents to the emergency department because of chills, dizziness and weakness for 1 day. He has chronic left great toe wound with history of infection possibly osteomyelitis s/p IV Zosyn when he was hospitalized 3 months ago and discharged home with Cipro for 2 months. He declined bone biopsy. 3 weeks ago he was seen again in the emergency department and was given IV DALVANCE and discharged. He was also restarted on Cipro by his primary care. Diabetic foot infection involving left great toe with failed outpatient therapy. MRI with marrow edema and enhancement in the great toe characteristic of osteomyelitis. Podiatry recommends long-term IV antibiotic, will consult infectious disease. Continue IV vancomycin and cefepime. Wound care. Uncontrolled diabetes mellitus. Continue to monitor fingersticks with sliding scale coverage. Hypoglycemia protocol Uncontrolled hypertension. Continue lisinopril and monitor with as needed IV Vasotec and clonidine. DVT prophylaxis with SCD and subcu heparin
[2018-06-28] MEDS ORDERED: Pharmacy Ordered Lab Info OTHER ONE (13:45)
--- NOTE | 2018-06-28 18:19 | P.CON ---
History of Present Illness Service: INFECTIOUS DISEASE Consult date: 06/28/18 Requesting Physician: Alber Mayer Reason for Consult: LEFT DIABETIC FOOT INFECTION Primary Care Provider: No Primary Care Physician [facility] Family Provider: No Primary Care Physician Chief Complaint: Chills History of Present Illness: 63 YR OLD MALE ADMITTED WITH MALAISE AND CHILLS ONSET 24H PRIOR TO ADMISSION. HE STATES HE HAS HAD A LEFT GREAT TOE INFECTION HE NOTICED ABOUT 10M AGO. HE WAS SEEN AND ADMITTED ABOUT 3M AGO AND WAS ADMITTED RECEIVED A WEEK OF IV ABX AND THEN DC ON ORAL ANTIBIOTICS FOR A BOUT A MONTH. HE DID NOT FOLLOW UP PROPERLY AFTER HE COMPLETED THE COURSE AND HAD BEEN DOING HIS OWN WOUND CARE. HE STATES IT WAS IMPROVING HOWEVER THE LAST FEW MONTHS IT HAD BEEN BECOMING MORE RED AND SWOLLEN. HE HAD AN EPISODE OF CHILLS UP TO 3M AGO AND DID NOT FOLLOW UP. HE IS DIABETIC BUT STATES HE HAD BEEN CARING FOR HIM MOM WHO ABOUT 6M AGO AND IN TURN HAS IGNORED HIS HEALTH. ID CONSULTED TO HELP WITH MANAGEMENT. 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 HE HAD AN MRI YESTERDAY WHICH INDICATES OSTEOMYELITIS. Review of Systems Constitutional: Reports chills, Reports weight loss Eyes: Denies blind spots Ears, Nose, Mouth, and Throat: Denies abnormal hearing Cardiovascular: Reports foot swelling, Denies chest pain, Denies leg pain with activity Respiratory: Denies change in phlegm color, Denies excessive phlegm production Gastrointestinal: Denies abdominal pain, Denies change in bowel habits, Denies excessive passing of gas, Denies feeling full early, Denies loose stools, Denies nausea, Denies pain with swallowing Genitourinary: Denies blood in semen, Denies blood in urine Musculoskeletal: Denies abnormal walking Skin/Breast: Denies rash Neurologic: Denies abnormal hearing Psychiatric: Denies abnormal sleep pattern, Denies confusion Hematologic/Lymphatic: Denies easy bleeding Allergic/Immunologic: Denies GI upset with certain foods PMFSH - History History Provided By: Patient - Medical History Medical History: Medical History (Last Reviewed 06/28/18 @ 11:57 by Alber Mayer MD) Diabetes Hx of gangrene Hypertension Kidney stone - Surgical History Surgical History: Surgical History (Last Reviewed 06/28/18 @ 11:57 by Alber Mayer MD) History of ankle surgery History of foot surgery - Family History Family History: Family History (Last Updated 06/28/18 @ 11:57 by Alber Mayer MD) Other No pertinent family history - Tobacco History Second Hand Smoke Exposure: Yes Tobacco Use In Past 30 Days: Yes Smoking Status: Current every day smoker Tobacco Type: Cigarettes - Alcohol History How Often Do You Have a Drink Containing Alcohol: 2 to 3 times a week - Substance Use History Substance History: No History of Abuse - Travel History Recent Travel in the [place] Within the Last 8 Weeks: No Recent Travel Out of the Country Within the Last 8 Weeks: No - Immunization History Tetanus Immunization: >5 Years Hx Influenza Vaccine This Season: No Medications and Allergies Active Medications: Active Medications Acetaminophen (Tylenol) 650 mg PO Q4H PRN PRN Reason: Temp > 100.4 Al Hydroxide/Mg Hydroxide (Milk Of Magnbob Liq) 30 ml PO Q12H PRN PRN Reason: Mild Constipation Bisacodyl (Dulcolax Supp) 10 mg RECTAL DAILY PRN PRN Reason: SEVERE CONSITIPATION Clonidine HCl (Catapres) 0.1 mg PO Q6H PRN PRN Reason: SEE LABEL COMMENTS Last Admin: 06/28/18 16:38 Dose: 0.1 mg Dextrose (D50w Vial) 50 ml IV.PUSH UNSCH PRN PRN Reason: PER HYPOGLYCEMIA PROTOCOL Enalaprilat (Vasotec Inj) 1.25 mg IV.PUSH Q6H PRN PRN Reason: SEE LABEL COMMENTS Glucagon (Glucagon Inj) 1 mg OTHER PRN PRN PRN Reason: for Hypoglycemia Protocol Heparin Sodium (Porcine) (Heparin Inj) 5,000 units SQ Q12H [facility] Last Admin: 06/28/18 08:15 Dose: 5,000 units Sodium Chloride (Ns Inj) 500 mls @ 0 mls/hr IV.SIG BOLUS [facility] Last Infusion: 06/27/18 18:01 Dose: Infused Cefepime HCl 1,000 mg/ Sodium (Chloride) 100 mls @ 200 mls/hr IV.SIG Q12H [facility] Last Infusion: 06/28/18 08:50 Dose: Infused Sodium Chloride (Ns Inj) 1,000 mls @ 100 mls/hr IV.CONT .Q10H [facility] Last Admin: 06/28/18 17:42 Dose: 100 mls/hr Vancomycin HCl 1,500 mg/ (Sodium Chloride) 515 mls @ 250 mls/hr IV.SIG Q8H [facility] Last Infusion: 06/28/18 17:43 Dose: Infused Insulin Aspart (Novolog Insulin Correctional Sugar Inj) 0 unit SQ ACHS [facility]; Protocol Last Admin: 06/28/18 16:39 Dose: 1 unit Lactulose (Lactulose Liq) 30 ml PO DAILY PRN PRN Reason: SEVERE CONSITIPATION Lisinopril (Prinivil) 10 mg PO DAILY [facility] Multivitamins (Theragran) 1 tab PO DAILY [facility] Last Admin: 06/28/18 08:15 Dose: 1 tab Neomycin/Polymyxin/Bacitracin (Neosporin Oint) 1 applicatio TOPICAL DAILY [facility] Last Admin: 06/28/18 14:52 Dose: 1 applicatio Ondansetron HCl (Zofran Inj) 4 mg IV.PUSH Q6H PRN PRN Reason: NAUSEA OR VOMITING Pharmacy Profile Note (Vancomycin Consult Pharmacy) 1 each OTHER UNSCH PRN PRN Reason: Pharmacy to dose Senna/Docusate Sodium (Arielle-Colace) 1 tab PO BID [facility] Last Admin: 06/28/18 08:15 Dose: Not Given Sennosides (Senokot) 17.2 mg PO Q12H PRN PRN Reason: Moderate Constipation Allergies Allergy/AdvReac Type Severity Reaction Status Date / Time No Known Allergies Allergy Verified 06/27/18 12:49 Home Medications Medication Instructions Recorded Confirmed Type aspirin [Aspir-81] 81 mg PO DAILY 06/27/18 06/27/18 History ciprofloxacin HCl 750 mg PO Q12H 06/27/18 06/27/18 History insulin aspart U-100 [Novolog U-] 5 unit SQ ACHS 06/27/18 06/27/18 History multivitamin [Multiple Vitamins] 1 tab PO DAILY 06/27/18 06/27/18 History Physical Exam Vital signs: Vital Signs 06/27/18 19:40 06/27/18 20:00 06/28/18 00:00 Temperature 97.0 F L 97.9 F Pulse Rate 87 89 91 H Respiratory Rate 18 18 18 Blood Pressure 150/86 H 156/106 H 156/91 H Pulse Oximetry 99 99 99 06/28/18 04:00 06/28/18 08:00 06/28/18 12:00 Temperature 97.8 F 97.2 F L 97 F L Pulse Rate 93 H 83 82 Respiratory Rate 18 20 20 Blood Pressure 150/88 H 171/83 H 189/88 H Pulse Oximetry 99 97 98 06/28/18 15:50 Temperature 97.3 F L Pulse Rate 86 Respiratory Rate 20 Blood Pressure 180/84 H Pulse Oximetry 97 Intake & Output 06/27/18 06/28/18 06/28/18 18:59 06:59 18:59 Intake Total 750 / 750 615 / 615 1250 / 1250 Output Total 700 / 700 Balance 750 / 750 -85 / -85 1250 / 1250 Weight 102.9 kg 102.3 kg Intake: IV 750 / 750 615 / 615 1130 / 1130 Maxipime Inj 1,000 MG In NS Inj 100 / 100 100 / 100 100 ML @ 200 mls/hr IV.SIG Q12H [facility] Rx#:[id number] NS Inj 500 ML @ Wide Open IV. 500 / 500 SIG BOLUS [facility] Rx#:[id number] Vancomycin Inj 1,000 MG In NS 250 / 250 Inj 250 ML @ 250 mls/hr IV.SIG ONCE ONE Rx#:[id number] Vancomycin Inj 1,500 MG In NS 515 / 515 1030 / 1030 Inj 500 ML @ 250 mls/hr IV.SIG Q8H [facility] Rx#:[id number] Oral 120 / 120 Output: Urine 700 / 700 Other: # Voids 1 - Constitutional no acute distress - Routine HEENT Exam Head: Present: normocephalic Eye: Present: EOMI, PERRL ENT: Present: mucous membranes moist - Routine Neck Exam Present: supple - Routine Respiratory Exam Present: CTA bilaterally. Absent: accessory muscle use, patient mechanically ventilated, prolonged expiratory phase, stridor, wheezes - Routine Cardiovascular Exam Present: RRR - Routine Abdominal Exam Present: soft - Routine Extremities Exam Present: pulses intact - Routine Skin Exam Present: intact. Absent: pallor - Routine Neurological Exam Present: alert, oriented X3, CN II-XII intact - Detailed Neurological Exam: Coma Scale Eye Opening: Spontaneous Verbal Response: Oriented Motor Response: Obey commands Bulger Coma Scale Total: 15 - Routine Psychiatric Exam Present: normal affect - Additional findings Additional findings: LEFT GREAT TOE ULCER CALLUSED NO DRAINAGE . WOUND IS AT THE BASE PSTERIOR OF THE LEFT GREAT TOE. NO REDNESS Assessment and Plan - Assessment (1) Diabetes Code(s): E11.9 - Type 2 diabetes mellitus without complications Status: Acute - Plan 1. LEFT DIABETIC GREAT TOE ULCER 2. OSTEOMYELITIS RECOMMENDATION FOLLOW CULTURES CONTINUE VANCOMYCIN WITH CEFEPIME FOR NOW PT WILL LIKELY REQUIRE IV ABX ON DC VANCOMYCIN WITH CIPRO WITH CLOSE FU WILL FU (1) Diabetes Qualifiers: Diabetes mellitus type: type 2
[2018-06-29] MEDS: Vancomycin Inj 1,500 MG in Sodium Chlor 0.9% Inj 500 ML IV.SIG SCH ×3 (05:37→22:41)
[2018-06-29] MEDS: Sod Chloride 0.9% Inj 1,000 ML IV.CONT SCH ×3 (05:37→22:41)
[2018-06-29] MEDS: Heparin - SQ 10,000 UNITS/ML Vial SQ SCH ×2 (08:24→20:28)
[2018-06-29] MEDS: Insulin NovoLOG Aspart Correctional Sugar Inj SQ SCH ×4 (08:25→21:30)
[2018-06-29] MEDS: Senna/Docusate Sodium 8.6/50 MG Tablet PO SCH ×2 (08:25→20:27)
[2018-06-29] MEDS ORDERED: Lisinopril 10 MG Tablet PO SCH (09:00)
--- NOTE | 2018-06-29 09:54 | P.PN ---
Subjective Interval history: Follow-up toe osteomyelitis, hypertension and diabetes mellitus. Patient has no new complaints. Agrees to be started on metformin. ID notes reviewed. Physical Exam Vital signs: Vital Signs 06/28/18 12:00 06/28/18 15:50 06/28/18 20:00 Temperature 97 F L 97.3 F L 96.4 F L Pulse Rate 82 86 87 Respiratory Rate 20 20 20 Blood Pressure 189/88 H 180/84 H 166/80 H Pulse Oximetry 98 97 93 L 06/29/18 00:00 06/29/18 08:00 Temperature 98.0 F 98 F Pulse Rate 74 79 Respiratory Rate 20 20 Blood Pressure 140/78 190/92 H Pulse Oximetry 97 95 Intake & Output 06/28/18 06/29/18 06/29/18 18:59 06:59 18:59 Intake Total 2283 / 2283 1615 / 1615 615 / 615 Balance 2283 / 2283 1615 / 1615 615 / 615 Weight 104 kg Intake: IV 1130 / 1130 1615 / 1615 615 / 615 NS Inj 1,000 ML @ 100 mls/hr IV 1000 / 1000 .CONT .Q10H [facility] Rx#:[id number] Maxipime Inj 1,000 MG In NS Inj 100 / 100 100 / 100 100 / 100 100 ML @ 200 mls/hr IV.SIG Q12H [facility] Rx#:[id number] Vancomycin Inj 1,500 MG In NS 1030 / 1030 515 / 515 515 / 515 Inj 500 ML @ 250 mls/hr IV.SIG Q8H [facility] Rx#:[id number] Oral 1153 / 1153 Other: # Voids 6 1 # Bowel Movements 2 Narrative: GENERAL: Well-developed, well-nourished in no distress SKIN: Warm and dry. Varicosities CARDIOVASCULAR: Regular rate and rhythm. RESPIRATORY: No accessory muscle use. Clear to auscultation. Breath sounds equal bilaterally. GASTROINTESTINAL: Abdomen soft, non-tender, nondistended. MUSCULOSKELETAL: Extremities without clubbing, cyanosis, or edema. No obvious deformities. Left great toe ulcer plantar surface with no drainage. NEUROLOGICAL: Awake and alert. No obvious cranial nerve deficits. Motor grossly within normal limits. Five out of 5 muscle strength in the arms and legs. Normal speech. Results - Labs CBC & Chem 7: 06/28/18 08:10 06/28/18 08:10 Laboratory Results - last 24 hr 06/28/18 06/28/18 06/28/18 11:36 13:34 16:21 POC Glucose 248 H 168 H Vancomycin Trough 16.3 H 06/28/18 06/29/18 20:35 07:19 POC Glucose 368 H 209 H Vancomycin Trough Microbiology 06/27/18 14:50 Blood - Peripheral Aerobic Blood Culture - Preliminary No growth in 1 day 06/27/18 14:50 Blood - Peripheral Anaerobic Blood Culture - Preliminary No growth in 1 day 06/27/18 14:40 Blood - Peripheral Aerobic Blood Culture - Preliminary No growth in 1 day 06/27/18 14:40 Blood - Peripheral Anaerobic Blood Culture - Preliminary No growth in 1 day - Procedures none Assessment and Plan - Plan This is a 63-year-old male with a history of diabetes mellitus, hypertension and left great toe infection. Patient presents to the emergency department because of chills, dizziness and weakness for 1 day. He has chronic left great toe wound with history of infection possibly osteomyelitis s/p IV Zosyn when he was hospitalized 3 months ago and discharged home with Cipro for 2 months. He declined bone biopsy. 3 weeks ago he was seen again in the emergency department and was given IV DALVANCE and discharged. He was also restarted on Cipro by his primary care. Diabetic foot infection involving left great toe with failed outpatient therapy. MRI with marrow edema and enhancement in the great toe characteristic of osteomyelitis. Podiatry recommends long-term IV antibiotic. Infectious disease agrees with IV vancomycin and cefepime for now pending cultures. May need biopsy. Wound care. Uncontrolled diabetes mellitus. Start metformin 500 mg daily then increase to twice a day depending on tolerance. Continue to monitor fingersticks with sliding scale coverage. Hypoglycemia protocol Uncontrolled hypertension. Increase lisinopril 10 mg to twice a day and monitor with as needed IV Vasotec and clonidine. DVT prophylaxis with SCD and subcu heparin Discharge Planning: Not ready needs IV antibiotic. Discussed with case management, difficult discharge plan patient has no payor source and homeless
--- NOTE | 2018-06-29 15:40 | P.PNID ---
Subjective Remarks: ID FU DR ART NO NEW CHANGES PT AWAKE NO COMPLAINTS AFEBRILE Allergies/Adverse Reactions: Allergies No Known Allergies Allergy (Verified 06/27/18 12:49) Objective Vital Signs 06/28/18 15:50 06/28/18 20:00 06/29/18 00:00 Temperature 97.3 F L 96.4 F L 98.0 F Pulse Rate 86 87 74 Respiratory Rate 20 20 20 Blood Pressure 180/84 H 166/80 H 140/78 Pulse Oximetry 97 93 L 97 06/29/18 08:00 06/29/18 12:00 Temperature 98 F 97.6 F Pulse Rate 79 67 Respiratory Rate 20 20 Blood Pressure 190/92 H 183/92 H Pulse Oximetry 95 99 Intake & Output 06/28/18 06/29/18 06/29/18 18:59 06:59 18:59 Intake Total 2283 / 2283 1615 / 1615 1615 / 1615 Balance 2283 / 2283 1615 / 1615 1615 / 1615 Weight 104 kg Intake: IV 1130 / 1130 1615 / 1615 1615 / 1615 NS Inj 1,000 ML @ 100 mls/hr IV 1000 / 1000 1000 / 1000 .CONT .Q10H [facility] Rx#:[id number] Maxipime Inj 1,000 MG In NS Inj 100 / 100 100 / 100 100 / 100 100 ML @ 200 mls/hr IV.SIG Q12H [facility] Rx#:[id number] Vancomycin Inj 1,500 MG In NS 1030 / 1030 515 / 515 515 / 515 Inj 500 ML @ 250 mls/hr IV.SIG Q8H [facility] Rx#:[id number] Oral 1153 / 1153 Other: # Voids 6 1 # Bowel Movements 2 06/27/18 14:50 Blood - Peripheral Aerobic Blood Culture - Preliminary No growth in 2 days 06/27/18 14:50 Blood - Peripheral Anaerobic Blood Culture - Preliminary No growth in 2 days 06/27/18 14:40 Blood - Peripheral Aerobic Blood Culture - Preliminary No growth in 2 days 06/27/18 14:40 Blood - Peripheral Anaerobic Blood Culture - Preliminary No growth in 2 days 06/27/18 15:00 Nasal Wash Influenza Types A,B Antigen - Final Negative for FLU A and B antigen Infection due to influenza A or B cannot be ruled out since the antigen present in the sample may be below the detection limit of the test. Lab - Hematology Results 06/28/18 08:10 CBC w Diff Auto diff final WBC 8.1 RBC 4.44 L Hgb 13.6 Hct 39.0 MCV 87.8 MCH 30.5 MCHC 34.8 RDW 13.6 Plt Count 253 MPV 8.8 Neut % (Auto) 65.7 Lymph % (Auto) 24.7 [place] % (Auto) 6.2 Eos % (Auto) 2.5 Baso % (Auto) 0.9 Neut # (Auto) 5.3 Lymph # (Auto) 2.0 [place] # (Auto) 0.5 Eos # (Auto) 0.2 Baso # (Auto) 0.1 WBC Differential . Differential Comment . Lab - Chemistry Results 06/28/18 06/28/18 06/28/18 07:41 08:10 11:36 Sodium 135 L Potassium 4.0 Chloride 103 Carbon Dioxide 23.4 Anion Gap 9 BUN 7 Creatinine 0.60 Estimated GFR Greater than 89 POC Glucose 157 H 248 H Random Glucose 167 H Calcium 7.9 L Total Bilirubin 0.8 AST 13 L ALT 17 Alkaline Phosphatase 45 Total Protein 6.1 L D Albumin 3.4 06/28/18 06/28/18 06/29/18 16:21 20:35 07:19 Sodium Potassium Chloride Carbon Dioxide Anion Gap BUN Creatinine Estimated GFR POC Glucose 168 H 368 H 209 H Random Glucose Calcium Total Bilirubin AST ALT Alkaline Phosphatase Total Protein Albumin 06/29/18 11:30 Sodium Potassium Chloride Carbon Dioxide Anion Gap BUN Creatinine Estimated GFR POC Glucose 205 H Random Glucose Calcium Total Bilirubin AST ALT Alkaline Phosphatase Total Protein Albumin Imaging: ITS Impressions Chest X-Ray 06/27/18 14:18 CONCLUSION: Negative examination. Foot MRI 06/27/18 14:18 CONCLUSION: 1. Marrow edema and enhancement in the great toe similar to prior study most characteristic of osteomyelitis. Physical Exam: GENERAL: A/ OX 3 HEENT: PERRL NS CARDIAC: RRR ABDOMEN: SOFT ACTIVE EXT: + LEFT GREAT TOE ULCER DRSG DRY Assessment and Plan (1) Diabetes Status: Acute Code(s): E11.9 - Type 2 diabetes mellitus without complications - Plan + OSTEOMYELITIS ON MRI PT HAS FAILED OUT PATIENT IN THE PAST WILL LIKELY NEED PICC LINE OR MID LINE WITH VANCOMCYIN WITH OUTPATIENT INFUSION CAN DO PO CIPRO WELL SHOULD SEE PODIATRY FOR I&D OR WOUND CARE PT WITH A HEALED CALLUS OVER THE ULCER SHOULD HAVE CLOSE FU FINAL REC WILL FU (1) Diabetes Qualifiers: Diabetes mellitus type: type 2
[2018-06-29] MEDS: Lisinopril 10 MG Tablet PO SCH (20:27)
[2018-06-30] MEDS: Vancomycin Inj 1,500 MG in Sodium Chlor 0.9% Inj 500 ML IV.SIG SCH ×3 (05:49→22:00)
[2018-06-30] MEDS: Lisinopril 10 MG Tablet PO SCH (08:11)
[2018-06-30] MEDS: Insulin NovoLOG Aspart Correctional Sugar Inj SQ SCH ×4 (08:12→20:42)
[2018-06-30] MEDS: Heparin - SQ 10,000 UNITS/ML Vial SQ SCH ×2 (08:13→20:26)
[2018-06-30] MEDS: Sod Chloride 0.9% Inj 1,000 ML IV.CONT SCH (08:13)
[2018-06-30] MEDS: Senna/Docusate Sodium 8.6/50 MG Tablet PO SCH ×2 (08:13→20:27)
--- NOTE | 2018-06-30 10:51 | P.PN ---
Subjective Interval history: Follow-up diabetic foot infection. Patient prefers to go to infusion clinic daily then home care IV antibiotic. BP elevated on IV fluids Physical Exam Vital signs: Vital Signs 06/29/18 12:00 06/29/18 16:00 06/29/18 20:00 Temperature 97.6 F 97 F L 97.9 F Pulse Rate 67 67 71 Respiratory Rate 20 20 20 Blood Pressure 183/92 H 179/88 H 177/86 H Pulse Oximetry 99 98 98 06/29/18 23:54 06/30/18 08:00 Temperature 97.6 F 96.5 F L Pulse Rate 63 69 Respiratory Rate 20 20 Blood Pressure 172/83 H 185/93 H Pulse Oximetry 98 96 Intake & Output 06/29/18 06/30/18 06/30/18 18:59 06:59 18:59 Intake Total 3513 / 3513 1615 / 1615 1065 / 1065 Balance 3513 / 3513 1615 / 1615 1065 / 1065 Weight 103.7 kg Intake: IV 2130 / 2130 1615 / 1615 1065 / 1065 NS Inj 1,000 ML @ 100 mls/hr IV 1000 / 1000 1000 / 1000 450 / 450 .CONT .Q10H [facility] Rx#:[id number] Maxipime Inj 1,000 MG In NS Inj 100 / 100 100 / 100 100 / 100 100 ML @ 200 mls/hr IV.SIG Q12H [facility] Rx#:[id number] Vancomycin Inj 1,500 MG In NS 1030 / 1030 515 / 515 515 / 515 Inj 500 ML @ 250 mls/hr IV.SIG Q8H [facility] Rx#:[id number] Oral 1383 / 1383 Other: # Voids 5 # Bowel Movements 0 Narrative: GENERAL: Well-developed, well-nourished in no distress SKIN: Warm and dry. Varicosities CARDIOVASCULAR: Regular rate and rhythm. RESPIRATORY: No accessory muscle use. Clear to auscultation. Breath sounds equal bilaterally. GASTROINTESTINAL: Abdomen soft, non-tender, nondistended. MUSCULOSKELETAL: Extremities without clubbing, cyanosis, or edema. No obvious deformities. Left great toe ulcer plantar surface with no drainage. NEUROLOGICAL: Awake and alert. No obvious cranial nerve deficits. Motor grossly within normal limits. Five out of 5 muscle strength in the arms and legs. Normal speech. Results - Labs CBC & Chem 7: 06/28/18 08:10 06/28/18 08:10 Laboratory Results - last 24 hr 06/29/18 06/29/18 06/29/18 11:30 15:52 20:26 POC Glucose 205 H 150 H 248 H 06/30/18 07:34 POC Glucose 185 H Microbiology 06/27/18 14:50 Blood - Peripheral Aerobic Blood Culture - Preliminary No growth in 2 days 06/27/18 14:50 Blood - Peripheral Anaerobic Blood Culture - Preliminary No growth in 2 days 06/27/18 14:40 Blood - Peripheral Aerobic Blood Culture - Preliminary No growth in 2 days 06/27/18 14:40 Blood - Peripheral Anaerobic Blood Culture - Preliminary No growth in 2 days - Procedures none Assessment and Plan - Plan This is a 63-year-old male with a history of diabetes mellitus, hypertension and left great toe infection. Patient presents to the emergency department because of chills, dizziness and weakness for 1 day. He has chronic left great toe wound with history of infection possibly osteomyelitis s/p IV Zosyn when he was hospitalized 3 months ago and discharged home with Cipro for 2 months. He declined bone biopsy. 3 weeks ago he was seen again in the emergency department and was given IV DALVANCE and discharged. He was also restarted on Cipro by his primary care. Diabetic foot infection involving left great toe with failed outpatient therapy. MRI with marrow edema and enhancement in the great toe characteristic of osteomyelitis. Podiatry recommends long-term IV antibiotic. Infectious disease agrees with IV vancomycin and cefepime for now pending cultures. Recommending IV vancomycin and p.o. Cipro for 3 weeks via midline or PICC line and podiatry to debride the wound. May need biopsy. Wound care. Discussed with case management Uncontrolled diabetes mellitus. Stable continue metformin 500 mg daily then increase to twice a day depending on tolerance. Continue to monitor fingersticks with sliding scale coverage. Hypoglycemia protocol Uncontrolled hypertension. Increase lisinopril 10 mg to twice a day and monitor with as needed IV Vasotec and clonidine. Discontinue IV fluid DVT prophylaxis with SCD and subcu heparin Discharge Planning: Not ready needs IV antibiotic. Discussed with case management, difficult discharge plan patient has no payor source and homeless
[2018-06-30] MEDS ORDERED: Lisinopril 20 MG Tablet PO SCH ×2 (11:00→12:00)
[2018-06-30] MEDS: Lisinopril 20 MG Tablet PO SCH ×2 (16:36→20:29)
[2018-07-01 06:18] LABS: Glomerular Filtration Rate Greater Than 89 mL/min (>89)
[2018-07-01] MEDS: Vancomycin Inj 1,500 MG in Sodium Chlor 0.9% Inj 500 ML IV.SIG SCH ×3 (06:36→22:25)
[2018-07-01] MEDS: Insulin NovoLOG Aspart Correctional Sugar Inj SQ SCH ×4 (08:02→20:49)
[2018-07-01] MEDS: Senna/Docusate Sodium 8.6/50 MG Tablet PO SCH ×3 (08:03→20:28)
[2018-07-01] MEDS: Lisinopril 20 MG Tablet PO SCH ×2 (08:03→20:30)
[2018-07-01] MEDS: Heparin - SQ 10,000 UNITS/ML Vial SQ SCH ×2 (08:03→20:28)
[2018-07-01] MEDS: amLODIPine 5 MG Tablet PO SCH (08:40)
--- NOTE | 2018-07-01 10:36 | P.PNPOD ---
Physical Exam Vital signs: Vital Signs 06/30/18 12:00 06/30/18 16:00 06/30/18 17:21 Temperature 96.4 F L 96.1 F L Pulse Rate 74 70 Respiratory Rate 22 20 Blood Pressure 186/89 H 170/98 H Pulse Oximetry 97 96 06/30/18 20:00 07/01/18 00:13 07/01/18 04:00 Temperature 97 F L 98 F Pulse Rate 67 64 Respiratory Rate 20 20 Blood Pressure 188/91 H 193/93 H 199/98 H Pulse Oximetry 98 97 07/01/18 08:00 Temperature 96.9 F L Pulse Rate 75 Respiratory Rate 20 Blood Pressure 195/94 H Pulse Oximetry 96 Intake & Output 06/30/18 07/01/18 07/01/18 18:59 06:59 18:59 Intake Total 1929 1135 / 1135 855 / 855 Balance 1929 1135 / 1135 855 / 855 Weight 107.2 kg Intake: IV 1929 / 1929 615 / 615 615 / 615 NS Inj 1,000 ML @ 100 mls/hr IV 800 / 800 .CONT .Q10H [facility] Rx#:[id number] Maxipime Inj 1,000 MG In NS Inj 100 / 100 100 / 100 100 / 100 100 ML @ 200 mls/hr IV.SIG Q12H [facility] Rx#:[id number] Vancomycin Inj 1,500 MG In NS 1030 / 1030 515 / 515 515 / 515 Inj 500 ML @ 250 mls/hr IV.SIG Q8H [facility] Rx#:[id number] Oral 520 / 520 240 / 240 Other: # Voids 3 Narrative: Left hallux with no erythema, no edema, no purulence, no foul odor, no sign at all of acute infection. Mild hyperkeratotic buildup noted to plantar aspect of hallux interphalangeal joint area. Medications and Allergies Active Medications: Active Medications Acetaminophen (Tylenol) 650 mg PO Q4H PRN PRN Reason: Temp > 100.4 Al Hydroxide/Mg Hydroxide (Milk Of Magnesia Liq) 30 ml PO Q12H PRN PRN Reason: Mild Constipation Amlodipine Besylate (Norvasc) 5 mg PO DAILY [facility] Last Admin: 07/01/18 08:40 Dose: 5 mg Bisacodyl (Dulcolax Supp) 10 mg RECTAL DAILY PRN PRN Reason: SEVERE CONSITIPATION Clonidine HCl (Catapres) 0.1 mg PO Q6H PRN PRN Reason: SEE LABEL COMMENTS Last Admin: 07/01/18 08:03 Dose: 0.1 mg Dextrose (D50w Vial) 50 ml IV.PUSH UNSCH PRN PRN Reason: PER HYPOGLYCEMIA PROTOCOL Enalaprilat (Vasotec Inj) 1.25 mg IV.PUSH Q6H PRN PRN Reason: SEE LABEL COMMENTS Last Admin: 07/01/18 04:45 Dose: 1.25 mg Glucagon (Glucagon Inj) 1 mg OTHER PRN PRN PRN Reason: for Hypoglycemia Protocol Heparin Sodium (Porcine) (Heparin Inj) 5,000 units SQ Q12H [facility] Last Admin: 07/01/18 08:03 Dose: 5,000 units Sodium Chloride (Ns Inj) 500 mls @ 0 mls/hr IV.SIG BOLUS [facility] Last Infusion: 06/27/18 18:01 Dose: Infused Cefepime HCl 1,000 mg/ Sodium (Chloride) 100 mls @ 200 mls/hr IV.SIG Q12H [facility] Last Infusion: 07/01/18 10:10 Dose: Infused Vancomycin HCl 1,500 mg/ (Sodium Chloride) 515 mls @ 250 mls/hr IV.SIG Q8H [facility] Last Infusion: 07/01/18 09:18 Dose: Infused Insulin Aspart (Novolog Insulin Correctional Sugar Inj) 0 unit SQ ACHS [facility]; Protocol Last Admin: 07/01/18 08:02 Dose: 1 unit Lactulose (Lactulose Liq) 30 ml PO DAILY PRN PRN Reason: SEVERE CONSITIPATION Lisinopril (Prinivil) 20 mg PO BID [facility] Last Admin: 07/01/18 08:03 Dose: 20 mg Metformin HCl (Glucophage) 500 mg PO DAILY [facility] Last Admin: 07/01/18 08:03 Dose: 500 mg Miscellaneous Information ([facility] Ordered Lab Info) 0 each OTHER ONCE ONE Stop: 07/01/18 21:46 Multivitamins (Theragran) 1 tab PO DAILY [facility] Last Admin: 07/01/18 08:03 Dose: 1 tab Neomycin/Polymyxin/Bacitracin (Neosporin Oint) 1 applicatio TOPICAL DAILY [facility] Last Admin: 07/01/18 08:17 Dose: 1 applicatio Ondansetron HCl (Zofran Inj) 4 mg IV.PUSH Q6H PRN PRN Reason: NAUSEA OR VOMITING Pharmacy Profile Note (Vancomycin Consult Pharmacy) 1 each OTHER UNSCH PRN PRN Reason: Pharmacy to dose Senna/Docusate Sodium (Arielle-Colace) 1 tab PO BID [facility] Last Admin: 07/01/18 08:03 Dose: Not Given Sennosides (Senokot) 17.2 mg PO Q12H PRN PRN Reason: Moderate Constipation Allergies Allergy/AdvReac Type Severity Reaction Status Date / Time No Known Allergies Allergy Verified 06/27/18 12:49 Home Medications Medication Instructions Recorded Confirmed Type aspirin [Aspir-81] 81 mg PO DAILY 06/27/18 06/27/18 History ciprofloxacin HCl 750 mg PO Q12H 06/27/18 06/27/18 History insulin aspart U-100 [Novolog U-] 5 unit SQ ACHS 06/27/18 06/27/18 History multivitamin [Multiple Vitamins] 1 tab PO DAILY 06/27/18 06/27/18 History Results - Labs CBC & Chem 7: 06/28/18 08:10 07/01/18 05:29 Laboratory Results - last 24 hr 06/30/18 06/30/18 06/30/18 11:28 16:31 20:37 Creatinine Estimated GFR POC Glucose 216 H 138 H 263 H 07/01/18 07/01/18 05:29 07:41 Creatinine 0.56 L Estimated GFR Greater than 89 POC Glucose 152 H Microbiology 06/27/18 14:50 Blood - Peripheral Aerobic Blood Culture - Preliminary No growth in 3 days 06/27/18 14:50 Blood - Peripheral Anaerobic Blood Culture - Preliminary No growth in 3 days 06/27/18 14:40 Blood - Peripheral Aerobic Blood Culture - Preliminary No growth in 3 days 06/27/18 14:40 Blood - Peripheral Anaerobic Blood Culture - Preliminary No growth in 3 days - Procedures none Assessment and Plan - Assessment (1) Chronic osteomyelitis involving left ankle and foot Code(s): M86.672 - Other chronic osteomyelitis, left ankle and foot Status: Acute Plan: I had planned to debride a wound bedside, but there is no wound present. Wound has healed uneventfully. I pared away some mild hyperkeratotic buildup with #15 blade to plantar left hallux IP Joint area and no drainage, no open wound and no clinical sign of infection at all. Toe looks great today. Patient and I had a lengthy discussion. I discussed that creating a new wound to tunnel directly to the bone at this time would be unwise and unproductive, as he has been on IV antibiotics and oral antibiotics of a variety lately, and would likely yield a negative culture. My best suggestion is for patient to remain on IV vancomycin/cefepime, since the clinical appearance of the toe looks amazing at this time, and do a trial of long-term IV in attempt to salvage the toe. We discussed that if the toe "flares up" again, I will be recommending amputation of the toe, since this has been an ongoing issue for over a year. Podiatry signing off. Reconsult for amputation if acute sign of infection occurs. Follow up with Dr Leal wound care if wound occurs. Recommend to continue a bandage to the left hallux x 7 days after discharge to protect newly healed skin
--- NOTE | 2018-07-01 12:34 | P.PN ---
Subjective Interval history: Follow-up hypertension. BP has been elevated states he has been so anxious wants to get out as soon as possible. He agrees with current plan including long-term IV antibiotic. Physical Exam Vital signs: Vital Signs 06/30/18 16:00 06/30/18 17:21 06/30/18 20:00 Temperature 96.1 F L 97 F L Pulse Rate 70 67 Respiratory Rate 20 20 Blood Pressure 170/98 H 188/91 H Pulse Oximetry 96 98 07/01/18 00:13 07/01/18 04:00 07/01/18 08:00 Temperature 98 F 96.9 F L Pulse Rate 64 75 Respiratory Rate 20 20 Blood Pressure 193/93 H 199/98 H 195/94 H Pulse Oximetry 97 96 07/01/18 11:58 Temperature 97.5 F L Pulse Rate 69 Respiratory Rate Blood Pressure 195/101 H Pulse Oximetry 99 Intake & Output 06/30/18 07/01/18 07/01/18 18:59 06:59 18:59 Intake Total 1929 1135 / 1135 855 / 855 Balance 1929 1135 / 1135 855 / 855 Weight 107.2 kg Intake: IV 1929 / 0 615 / 615 615 / 615 NS Inj 1,000 ML @ 100 mls/hr IV 800 / 800 .CONT .Q10H [facility] Rx#:[id number] Maxipime Inj 1,000 MG In NS Inj 100 / 100 100 / 100 100 / 100 100 ML @ 200 mls/hr IV.SIG Q12H [facility] Rx#:[id number] Vancomycin Inj 1,500 MG In NS 1030 / 1030 515 / 515 515 / 515 Inj 500 ML @ 250 mls/hr IV.SIG Q8H [facility] Rx#:[id number] Oral 520 / 520 240 / 240 Other: # Voids 3 Narrative: GENERAL: Well-developed, well-nourished in no distress SKIN: Warm and dry. Varicosities CARDIOVASCULAR: Regular rate and rhythm. RESPIRATORY: No accessory muscle use. Clear to auscultation. Breath sounds equal bilaterally. GASTROINTESTINAL: Abdomen soft, non-tender, nondistended. MUSCULOSKELETAL: Extremities without clubbing, cyanosis, or edema. No obvious deformities. Left great toe with callus NEUROLOGICAL: Awake and alert. No obvious cranial nerve deficits. Motor grossly within normal limits. Five out of 5 muscle strength in the arms and legs. Normal speech. Results - Labs CBC & Chem 7: 06/28/18 08:10 07/01/18 05:29 Laboratory Results - last 24 hr 06/30/18 06/30/18 07/01/18 16:31 20:37 05:29 Creatinine 0.56 L Estimated GFR Greater than 89 POC Glucose 138 H 263 H 07/01/18 07/01/18 07:41 11:26 Creatinine Estimated GFR POC Glucose 152 H 172 H Microbiology 06/27/18 14:50 Blood - Peripheral Aerobic Blood Culture - Preliminary No growth in 4 days 06/27/18 14:50 Blood - Peripheral Anaerobic Blood Culture - Preliminary No growth in 4 days 06/27/18 14:40 Blood - Peripheral Aerobic Blood Culture - Preliminary No growth in 4 days 06/27/18 14:40 Blood - Peripheral Anaerobic Blood Culture - Preliminary No growth in 4 days - Imaging ITS Impressions Chest X-Ray 06/27/18 14:18 CONCLUSION: Negative examination. Foot MRI 06/27/18 14:18 CONCLUSION: 1. Marrow edema and enhancement in the great toe similar to prior study most characteristic of osteomyelitis. - Procedures none Assessment and Plan - Plan This is a 63-year-old male with a history of diabetes mellitus, hypertension and left great toe infection. Patient presents to the emergency department because of chills, dizziness and weakness for 1 day. He has chronic left great toe wound with history of infection possibly osteomyelitis s/p IV Zosyn when he was hospitalized 3 months ago and discharged home with Cipro for 2 months. He declined bone biopsy. 3 weeks ago he was seen again in the emergency department and was given IV DALVANCE and discharged. He was also restarted on Cipro by his primary care. Diabetic foot infection involving left great toe with failed outpatient therapy. MRI with marrow edema and enhancement in the great toe characteristic of osteomyelitis. Podiatry recommends long-term IV antibiotic. Infectious disease agrees with IV vancomycin and cefepime for now pending cultures. Recommending IV vancomycin via midline or PICC line and p.o. Cipro for 3 weeks. May need biopsy. Discussed with case management Uncontrolled diabetes mellitus. Stable continue metformin 500 mg daily then increase to twice a day depending on tolerance. Continue to monitor fingersticks with sliding scale coverage. Hypoglycemia protocol Uncontrolled hypertension. Contributed by anxiety. Trial of Vistaril. Add Norvasc to lisinopril and monitor with as needed IV Vasotec and clonidine. Discontinue IV fluid DVT prophylaxis with SCD and subcu heparin Discharge Planning: Discharge when IV antibiotics arranged
--- NOTE | 2018-07-01 13:08 | MB ---
cc: Corinne Oconnor DPM DATE: 06/28/2018 TIME OF CONSULT: 0900 REASON FOR CONSULTATION: Left hallux osteomyelitis. HISTORY OF PRESENT ILLNESS: The patient has had a 3 month months of osteo. He is treated with IV Zosyn and discharged on Cipro for 2 months. Received bone biopsy on previous admission. The patient has seen his primary care once and has not been consistent with his diabetic medications. He has followed up in the past with Dr. Blake. Denies any nausea, vomiting, fever, diarrhea, or chills. PAST MEDICAL HISTORY: Diabetes, history of gangrene, hypertension. PAST SURGICAL HISTORY: Ankle surgery, foot surgery. FAMILY HISTORY: Noncontributory. SOCIAL HISTORY: Positive for smoking, positive for alcohol. Denies substance abuse. MEDICATIONS: Per medical chart. PHYSICAL EXAMINATION: Left hallux plantarly with 0.2 x 0.2 opening keratotic periwound. There is no drainage, no erythema, no acute sign of infection. No pain on palpation. No pain on range of motion of the IP joint. DP and PT are diminished, but he is overall perfused. CFT is less than 3 seconds, 1 through 5. Protective sensation grossly diminished, left foot. LABORATORY DATA: On 06/28/2018, WBC of 8.1, RBC of 4.44, H and H 13.3 and 39.0. ESR on 06/27/2018 of 3. Right foot MRI completed on 06/27/2018 with some increased marrow signal intensity at the proximal and distal phalanx of the great toe. ASSESSMENT AND PLAN: 1. Diabetes neuropathy. 2. Chronic osteomyelitis. PLAN: This patient has failed outpatient Cipro and recommend 6 weeks of IV antibiotics. I discussed in significant detail being compliant with his medications, following his diabetic regime, and appropriate followup as outpatient. There is no surgical intervention planned. Followup as an outpatient with Dr. Blake. Recommend 6 weeks IV antibiotics. Corinne Oconnor DPM SR/colby/tiffanie , 11:24 PM , 11:34 PM [facility]
[2018-07-01] MEDS ORDERED: Pharmacy Ordered Lab Info OTHER ONE (21:45)
[2018-07-02] MEDS: Vancomycin Inj 1,500 MG in Sodium Chlor 0.9% Inj 500 ML IV.SIG SCH (06:21)
[2018-07-02] MEDS: Insulin NovoLOG Aspart Correctional Sugar Inj SQ SCH (08:04)
[2018-07-02] MEDS ORDERED: Heparin Central Flush 100 UNIT/ML 5 ML Vial IV.FLUSH PRN (08:08)
[2018-07-02 08:43] VITALS: BP 180/90; PULSE 70; RESP 22; TEMP 97.8; O2SAT 96
[2018-07-02] MEDS: amLODIPine 5 MG Tablet PO SCH (08:49)
[2018-07-02] MEDS: Senna/Docusate Sodium 8.6/50 MG Tablet PO SCH (08:49)
[2018-07-02] MEDS: Heparin - SQ 10,000 UNITS/ML Vial SQ SCH (08:49)
[2018-07-02] MEDS: Lisinopril 20 MG Tablet PO SCH (08:49)
--- NOTE | 2018-07-02 08:49 | P.PNID ---
Subjective Remarks: ID FU DR ART NO NEW CHANGES PT AWAKE NO COMPLAINTS AFEBRILE Antibiotics: Vancomycin and Cipro Lines: PICC Past Medical History: DM Allergies/Adverse Reactions: Allergies No Known Allergies Allergy (Verified 06/27/18 12:49) Objective Vital Signs 07/01/18 11:58 07/01/18 13:40 07/01/18 16:00 Temperature 97.5 F L 97.1 F L Pulse Rate 69 66 Respiratory Rate 20 Blood Pressure 195/101 H 182/98 H 165/85 H Pulse Oximetry 99 99 07/01/18 20:00 07/02/18 00:00 07/02/18 08:00 Temperature 98.1 F 96.5 F L 97.8 F Pulse Rate 62 63 70 Respiratory Rate 18 18 22 Blood Pressure 174/84 H 178/84 H 180/90 H Pulse Oximetry 97 98 96 Intake & Output 07/01/18 07/02/18 07/02/18 18:59 06:59 18:59 Intake Total 1370 / 1370 1615 / 1615 240 / 240 Output Total 450 / 450 300 / 300 Balance 1370 / 1370 1165 / 1165 -60 / -60 Weight 107.2 kg Intake: IV 1130 / 1130 615 / 615 Maxipime Inj 1,000 MG In NS Inj 100 / 100 100 / 100 100 ML @ 200 mls/hr IV.SIG Q12H [facility] Rx#:[id number] Vancomycin Inj 1,500 MG In NS 1030 / 1030 515 / 515 Inj 500 ML @ 250 mls/hr IV.SIG Q8H [facility] Rx#:[id number] Oral 240 / 240 1000 / 1000 240 / 240 Output: Urine 450 / 450 300 / 300 06/27/18 14:50 Blood - Peripheral Aerobic Blood Culture - Preliminary No growth in 4 days 06/27/18 14:50 Blood - Peripheral Anaerobic Blood Culture - Preliminary No growth in 4 days 06/27/18 14:40 Blood - Peripheral Aerobic Blood Culture - Preliminary No growth in 4 days 06/27/18 14:40 Blood - Peripheral Anaerobic Blood Culture - Preliminary No growth in 4 days Lab - Chemistry Results 06/30/18 06/30/18 06/30/18 11:28 16:31 20:37 Creatinine Estimated GFR POC Glucose 216 H 138 H 263 H 07/01/18 07/01/18 07/01/18 05:29 07:41 11:26 Creatinine 0.56 L Estimated GFR Greater than 89 POC Glucose 152 H 172 H 07/01/18 07/01/18 07/02/18 15:38 20:32 07:14 Creatinine Estimated GFR POC Glucose 202 H 208 H 204 H Imaging: ITS Impressions Chest X-Ray 06/27/18 14:18 CONCLUSION: Negative examination. Foot MRI 06/27/18 14:18 CONCLUSION: 1. Marrow edema and enhancement in the great toe similar to prior study most characteristic of osteomyelitis. Physical Exam: GENERAL: A/ OX 3 HEENT: PERRL NS CARDIAC: RRR ABDOMEN: SOFT ACTIVE EXT: + LEFT GREAT TOE ULCER with some bloody drainage Assessment and Plan (1) Osteomyelitis Status: Acute Code(s): M86.9 - Osteomyelitis, unspecified (2) Diabetes Status: Acute Code(s): E11.9 - Type 2 diabetes mellitus without complications (3) Chronic osteomyelitis involving left ankle and foot Status: Acute Code(s): M86.672 - Other chronic osteomyelitis, left ankle and foot - Plan + OSTEOMYELITIS ON MRI PT HAS FAILED OUT PATIENT IN THE PAST PICC line placed IV Vancomycin 2 g daily x 3 weeks with PO Cipro ( Ambulatory orders given to CM) (1) Osteomyelitis Qualifiers: Osteomyelitis type: other Osteomyelitis location: foot Laterality: left Qualified Code(s): M86.8X7 - Other osteomyelitis, ankle and foot (2) Diabetes Qualifiers: Diabetes mellitus type: type 2
[2018-07-02] MEDS ORDERED: Heparin Central Flush 100 UNIT/ML 5 ML Vial IV.FLUSH SCH (09:00)
--- NOTE | 2018-07-02 09:25 | P.DCO ---
Post Hospital Infusion Therapy Location of Infusion Therapy: Ambulatory Infusion Therapy Order Appointment Date: 07/02/18 Patient Weight: 107.2 kg - Diagnosis (1) Chronic osteomyelitis involving left ankle and foot Code(s): M86.672 - Other chronic osteomyelitis, left ankle and foot - Administer Medication Vancomycin Dose: 2 grams IV Directions: q 24 hours Start Treatment: 07/02/18 Stop Treatment: 07/23/18 - Additional Information Venous Access: PICC Line Additional Instructions: [x] Peripheral flush and dressing changes per protocol [x] Implanted port and central potline monitor: * Implanted port: 10 ml Normal Saline followed by 5 ml Heparin 100 units/ml Heparin flush after each use and monthly to maintain. [] May leave port accessed during therapy. [] May leave peripheral site accessed for duration of therapy. [x] If patient has SOB or respiratory distress, check oxygen saturation. If less than 90% or clinical signs of respiratory distress, administer oxygen at 2 L/min. via nasal cannula and notify physician. [x] Anaphylaxis/Reaction orders: * Stop infusion. * Keep IV line open with saline flush. * Notify physician. * Monitor vital signs every 15 minutes until symptoms resolve. * Check Oxygen saturation; Oxygen at 2 L/min. via nasal cannula if less than 90% or clinical signs of respiratory distress. * Administer diphenhydramine (Benadryl) 25 mg IV STAT, (unless patient has received as pre-med). May repeat once, if necessary. * Solu-Cortef 250 mg IVP over 30-60 seconds, use 100 mg vials for each dissolution. * Epinephrine (1mg/1 ml) 0.3 mg subcutaneously or IVP now with any signs of respiratory distress. * Check with physician for new additional pre-med orders if patient is re- challenged or re-treated. [x] May remove PICC line when treatment complete, after confirming with Physician. [x] If the patient is admitted to the hospital, the ED, or transferred via [facility] , complete transfer form including medication reconciliation order sheet. Weekly Labs: CBC w/diff, CMP, CRP, Vancomycin Trough Allergies No Known Allergies Allergy (Verified 06/27/18 12:49)
--- NOTE | 2018-07-02 10:36 | P.DS ---
Date of admission: 06/27/18 19:28 Primary care physician: No Primary Care Physician Brief History from admission: This is a 63-year-old male with a history of diabetes mellitus, hypertension and left great toe infection. Patient presents to the emergency department because of chills, dizziness and weakness for 1 day. Patient with a history of infection of the left great toe possibly osteomyelitis first diagnosed 3 months ago. Review of records shows he was treated with IV Zosyn and discharged home on Cipro for 2 months. He declined bone biopsy. 3 weeks ago he was seen again in the emergency department and was given IV DALVANCE and discharged. He was also restarted on Cipro by his primary care. Because of recurrent symptoms yesterday similar to when he was first diagnosed with diabetic foot infection he presented to the emergency room for further evaluation and treatment. Denies fever, headache, nausea, cough, abdominal pain, UTI symptoms and diarrhea. Chest x-ray interpreted by me with no acute cardiopulmonary disease. Urinalysis unremarkable. Discussed with podiatry, he recommends long-term IV antibiotic. At this time patient agrees to proceed with biopsy. All other systems reviewed negative DS: Medications - Discharge Medications Prescriptions: amlodipine [Norvasc] 5 mg PO DAILY #30 tab hydroxyzine pamoate 25 mg PO Q6H PRN #30 cap PRN Reason: Anxiety And/Or Insomnia Lactobacillus acidophilus 500 mmu cells PO BID #60 cap lisinopril 20 mg PO BID #60 tab metformin [Glucophage] 500 mg PO DAILY #30 tab DS: Summary Hospital Course: Mr. Rizo is a 63-year-old male. He was admitted secondary to osteomyelitis of the left first digit. He was treated with ciprofloxacin and IV vancomycin while inpatient. ID is following and has selected these treatments to continue as an outpatient for 3 weeks. While here podiatry evaluated the patient and pared away some mild hyperkeratotic buildup. Patient is ambulatory, pain control. He is doing well at this point medically stable and cleared for discharge. PICC line placed prior to discharge. - Time Spent with Patient Total time spent providing and/or coordinating discharge services: Less than 30 minutes - Quality: VTE Deep Vein Thrombosis/Pulmonary Embolism Present on Admission: No Exam Vital signs: Vital Signs 07/01/18 11:58 07/01/18 13:40 07/01/18 16:00 Temperature 97.5 F L 97.1 F L Pulse Rate 69 66 Respiratory Rate 20 Blood Pressure 195/101 H 182/98 H 165/85 H Pulse Oximetry 99 99 07/01/18 20:00 07/02/18 00:00 07/02/18 08:00 Temperature 98.1 F 96.5 F L 97.8 F Pulse Rate 62 63 70 Respiratory Rate 18 18 22 Blood Pressure 174/84 H 178/84 H 180/90 H Pulse Oximetry 97 98 96 Intake & Output 07/01/18 07/02/18 07/02/18 18:59 06:59 18:59 Intake Total 1370 / 1370 1615 / 1615 855 / 855 Output Total 450 / 450 300 / 300 Balance 1370 / 1370 1165 / 1165 555 / 555 Weight 107.2 kg 107.2 kg Intake: IV 1130 / 1130 615 / 615 615 / 615 Maxipime Inj 1,000 MG In NS Inj 100 / 100 100 / 100 100 / 100 100 ML @ 200 mls/hr IV.SIG Q12H [facility] Rx#:[id number] Vancomycin Inj 1,500 MG In NS 1030 / 1030 515 / 515 515 / 515 Inj 500 ML @ 250 mls/hr IV.SIG Q8H [facility] Rx#:[id number] Oral 240 / 240 1000 / 1000 240 / 240 Output: Urine 450 / 450 300 / 300 Results Procedures completed during hospitalization: none Labs on day of discharge: Labs from last 24 hours 07/02/18 07/01/18 07/01/18 07:14 21:30 20:32 POC Glucose 204 H 208 H Vancomycin Trough 27.0 H 07/01/18 07/01/18 15:38 11:26 POC Glucose 202 H 172 H Vancomycin Trough Preliminary micro results at discharge 06/27/18 14:50 Aerobic Blood Culture - Preliminary Blood - Peripheral No growth in 4 days Anaerobic Blood Culture - Preliminary No growth in 4 days 06/27/18 14:40 Aerobic Blood Culture - Preliminary Blood - Peripheral No growth in 4 days Anaerobic Blood Culture - Preliminary No growth in 4 days - Impressions ITS Impressions Chest X-Ray 06/27/18 14:18 CONCLUSION: Negative examination. Foot MRI 06/27/18 14:18 CONCLUSION: 1. Marrow edema and enhancement in the great toe similar to prior study most characteristic of osteomyelitis. Discharge Plan - Discharge Disposition Patient Disposition: 01 Discharge Home - Discharge Condition Condition: Stable - Discharge Order Discharge Orders: Discharge Order (Routine); Ordered 07/02/18 Ordered By: Deejay Fernandez - Discharge Details Anticipated Discharge Date: 07/02/18 - Physicians Team Primary Care Provider: Primary Care Jessica Chau Attending Provider: Deejay Fernandez Other Providers: Corinne Oconnor DPM ; Nakia Fuentes MD ; Ruba Mckeon,Agency
[2018-07-02] MEDS ORDERED: Vancomycin Inj 1,250 MG in Sodium Chlor 0.9% Inj 250 ML IV.SIG SCH (22:00)
== END 2018-07-02 12:31 | disposition home or self-care (01) ==
LOC: PHED 12:41 → PHEDA 19:28 → PH3 22:10
PROVIDERS: ADMIT Hospitalist; ATTEND Hospitalist